=== PATIENT | female | born 1940 | race Caucasian/White ===

== ENCOUNTER 2017-04-09 09:20 | Outpatient (CLI) | payer MEDICARE, OTHER ==
[2017-04-09] MEDS ORDERED: BARIUM SULFATE 135 ML BOTTLE PO ONE (10:49)
[2017-04-09] MEDS ORDERED: SIMETHICONE/SOD BICARB/CIT AC 1 EACH PACKET PO ONE (10:49)
[2017-04-09] MEDS ORDERED: BARIUM SULFATE 148 GM POWDER PO ONE (10:49)
--- NOTE | 2017-04-09 12:52 | XRAY Report ---
SINGLE AND DOUBLE CONTRAST UPPER GI: 04/09/2017 CLINICAL INDICATION: Chest discomfort, intermittent. FINDINGS: Initial metal machine setter view of the abdomen demonstrates a normal bowel gas pattern. The esophagus i s normal in caliber and contractility. No esophageal ulceration, mass lesion, or stricturing is ident ified. There is a small sliding hiatal hernia intermittently visualized, which did cause reflux durin g the course of the study. The stomach demonstrates a normal fold pattern. No gastric ulceration, mas s lesion, or stricturing is seen. The duodenal cap distends normally. The duodenal C-loop is unremark able. Contrast passes freely into more distal small bowel loops. IMPRESSION: SMALL SLIDING HIATAL HERNIA, PRODUCING REFLUX. NO ESOPHAGEAL ULCERATION OR MASS LESION. FLUOROSCOPY TIME: 2 MINUTES 51 SECONDS; 27 SPOT IMAGES OBTAINED. JOB #: [id number] EXT JOB #:[id number]
== END 2017-04-09 09:21 | disposition home or self-care (01) ==
LOC: DI 09:20
PROVIDERS: ATTEND Family Medicine
DX: K44.9 Diaphragmatic hernia without obstruction or gangrene (principal); K21.9 Gastro-esophageal reflux disease without esophagitis
CPT/HCPCS: 74246; A9270

== ENCOUNTER 2017-04-16 10:54 | Outpatient (CLI) | payer MEDICARE, OTHER ==
--- NOTE | 2017-04-17 13:17 | Mammography Report ---
DIGITAL SCREENING MAMMOGRAM: 04/16/2017 CLINICAL INDICATION: A 76-year-old, for screening. COMPARISON: 04/2016, 03/2015, 03/2014, 03/2011, 03/2010, 03/2009, 02/2008. TECHNIQUE: Routine CC and MLO projections were obtained of the breasts. FINDINGS: The breasts again demonstrate scattered fibroglandular densities bilaterally. Punctate, ty pically benign calcifications are present. No suspicious masses, clustered microcalcifications, or re gions of architectural distortion are identified. IMPRESSION: BENIGN FINDINGS. RECOMMENDATION: ROUTINE ANNUAL SCREENING UNLESS OTHERWISE CLINICALLY INDICATED. BIRADS CATEGORY 2-BENIGN FINDINGS. STANDARD QUALIFYING STATEMENTS 1. This examination was reviewed with the aid of Computer-Aided Detection (CAD). 2. A negative or benign imaging report should not delay biopsy if clinically suspicious findings are present. Consider surgical consultation if warranted. More than 5% of cancers are not identified by i maging. 3. Dense breasts may obscure an underlying neoplasm. JOB #: [id number] EXT JOB #:[id number]
== END 2017-04-16 10:55 | disposition home or self-care (01) ==
LOC: DI.N 10:54
PROVIDERS: ATTEND Family Medicine
DX: Z12.31 Encounter for screening mammogram for malignant neoplasm of breast (principal)
CPT/HCPCS: 77067

== ENCOUNTER 2017-06-25 00:37 | Outpatient (CLI) | payer MEDICARE, OTHER | END 2017-06-25 00:38 | disposition critical access hospital (66) | LOC: EMS 00:37 | PROVIDERS: ATTEND Surgery | DX: R06.02 Shortness of breath (principal) | CPT/HCPCS: A0425; A0427 ==

== ENCOUNTER 2017-06-25 00:54 | Inpatient (IN) | payer MEDICARE, OTHER ==
[2017-06-25] MEDS ORDERED: NITROGLYCERIN 2% PASTE TOP STA (01:02)
[2017-06-25] MEDS ORDERED: CAPTOPRIL 12.5 MG TABLET PO STA (01:02)
[2017-06-25] MEDS ORDERED: NITROGLYCERIN 2% PASTE TOP ONE (01:10)
--- NOTE | 2017-06-25 01:10 | ED Physician Documentation ---
History of Present Illness - Stated complaint Stated Complaint: SOA - Chief complaint Chief Complaint: Resp - Additonal information Additional information: hx from pt, EMS and EMR 76 y/o f hx non ischemic cardiomyopathy, EF 40%, CHF, a fib, LBBB, PPM, HTN, crhonic renal insuff followed by [facility] cardiology pt to ER [facility] after sudden onset SOA this evening no fever + cough for 4 weeks no CP + edema more than baseline [place] developed en route recent trip to [facility] compliant with meds and diet takes xarelto in addition to meds on list Review of Systems Constitutional: reports: Sweats. denies: Fever, Chills Cardiac: denies: Chest pain / pressure Respiratory: reports: Dyspnea, Cough GI: reports: Nausea, Vomiting. denies: Abdominal Pain Skin: denies: Rash Musculoskeletal: reports: Extremity swelling. denies: Neck pain, Back pain Neurologic: reports: Difficulty speaking (due to SOA) Endocrine: denies: Easy bruising / bleeding Immunocompromised: denies: Immunocompromised PD PAST MEDICAL HISTORY - Past Medical History Cardiovascular: Hypertension, Atrial fibrillation Respiratory: None Neuro: Fainting Endocrine/Autoimmune: HyPOthyroidism GI: None : Renal insuffiency HEENT: None Psych: None Musculoskeletal: None Derm: None - Past Surgical History Past Surgical History: Yes Ortho: Other HEENT: Cataracts - Present Medications Home Medications: Ambulatory Orders Medication Instructions Recorded Confirmed Furosemide [Lasix] 20 mg PO DAILY PRN 02/07/15 06/25/17 Levothyroxine [Synthroid] 200 mcg PO DAILY 02/07/15 06/25/17 Metoprolol Succinate [Toprol Xl] 50 mg PO DAILY 02/07/15 06/25/17 Simvastatin 20 mg PO DAILY PM 02/07/15 06/25/17 Cinnamon Bark/Chromium Picolin 1 each PO DAILY 03/11/15 06/25/17 [Cinnamon Plus Chromium Capsule] Garlic 1 each PO DAILY 03/11/15 06/25/17 Lysine [l-Lysine] 1 tab PO DAILY PM 03/11/15 06/25/17 Amiodarone [Pacerone] 100 mg PO DAILY 06/04/15 06/25/17 Echinacea Purpurea Root [Echinacea] 80 mg PO DAILY PRN 06/04/15 06/25/17 Telmisartan [Micardis] 10 mg PO DAILY PM 11/16/15 06/25/17 Metoprolol Succinate 100 mg PO DAILY PM 06/25/17 06/25/17 - Allergies Allergies/Adverse Reactions: Allergies Allergy/AdvReac Type Severity Reaction Status Date / Time No Known Drug Allergies Allergy Verified 11/15/15 22:59 - Social History Does the pt smoke?: No Smoking Status: Never smoker Does the pt drink ETOH?: No Does the pt have substance abuse?: No - Immunizations Immunizations are current?: Yes PD ED PE NORMAL - Vitals Vital signs reviewed: Yes - General General: Alert and oriented X 3, Other (anxious) - HEENT HEENT: PERRL - Neck Neck: Supple, no meningeal sign - Cardiac Cardiac: RRR - Respiratory Respiratory: Other (suzanne ronchi, cannot lay flat, speakes in words, coughing) - Abdomen Abdomen: Soft, Non tender - Derm Derm: Normal color - Extremities Extremities: Other (suzanne edema (worse than nl per pt) R > L (baseline per pt)) - Neuro Neuro: Alert and oriented X 3 - Psych Psych: Other (anxious) Results - Vitals Vitals: Vital Signs - 24 hr 06/25/17 06/25/17 06/25/17 00:56 01:14 01:38 Temperature 37.2 C Heart Rate 81 74 107 H Respiratory 24 17 20 Rate Blood Pressure 197/117 H 175/65 H 170/88 H O2 Saturation 91 L 93 92 06/25/17 06/25/17 01:54 02:09 Temperature Heart Rate 62 62 Respiratory 22 22 Rate Blood Pressure 149/77 H 137/69 H O2 Saturation 95 95 Oxygen O2 Source Simple Mask Oxygen Flow Rate 10 - EKG (time done) 0103 Rate: Rate (enter#) (76) Other comments: Other comments (paced) - Labs Labs: Laboratory Tests 06/25/17 06/25/17 06/25/17 01:13 01:13 01:13 WBC 16.2 H RBC 4.97 Hgb 15.3 Hct 46.7 MCV 94.1 MCH 30.8 MCHC 32.7 RDW 14.7 Plt Count 267 MPV 11.2 H Neut # 12.2 H Lymph # 2.8 Jack # 0.7 Eos # 0.3 Baso # 0.2 H Absolute Nucleated RBC 0.01 Nucleated RBCs 0.1 Sodium 137 Potassium 3.7 Chloride 104 Carbon Dioxide 26 Anion Gap 7.0 BUN 22 H Creatinine 1.2 H Estimated GFR (MDRD) 44 L Glucose 251 H Calcium 8.7 Troponin I < 0.04 B-Natriuretic Peptide 06/25/17 01:13 WBC RBC Hgb Hct MCV MCH MCHC RDW Plt Count MPV Neut # Lymph # Jack # Eos # Baso # Absolute Nucleated RBC Nucleated RBCs Sodium Potassium Chloride Carbon Dioxide Anion Gap BUN Creatinine Estimated GFR (MDRD) Glucose Calcium Troponin I B-Natriuretic Peptide 527 H - Rads (name of study) CXR Radiology: See rad report (mild cardiomegaky with suzanne pulm edema, infiltrate cannot be excluded, small right pleural effusion) PD MEDICAL DECISION MAKING - ED course ED course: pt doing much better after lasix and nitropaste CXR shows pulm edema and exam is c/w pulm edema considered PE as well after recent travel to [facility] but given pt pmhx and exam and CXR and BNP feel todays sx are much more likely due to CHF - also her GFR is too low for CTPA and her base CXR is too abn for VQ scan Departure - Departure Disposition: 66 [facility] DC/Xfer Clinical Impression: Hypoxia, Renal insufficiency Pulmonary edema Qualifiers: Chronicity: acute Qualified Code(s): J81.0 - Acute pulmonary edema Condition: Fair
[2017-06-25 01:20] LABS: EOSINOPHILS # (AUTO) 0.3 10^3/uL (0.0-0.7); HGB - HEMOGLOBIN 15.3 g/dL (12.0-16.0)
[2017-06-25 01:25] LABS: BASOPHILS # (AUTO) 0.2 10^3/uL (0.0-0.1); BASOPHILS % (AUTO) 1.2 %; CALCIUM 8.7 mg/dL (8.5-10.3); CREATININE 1.2 mg/dL (0.4-1.0); EOSINOPHILS % (AUTO) 1.6 %; HCT - HEMATOCRIT 46.7 % (37.0-47.0); LYMPHOCYTES # (AUTO) 2.8 10^3/uL (1.5-3.5); LYMPHOCYTES % (AUTO) 17.4 %; MEAN CORPUSCULAR HEMOGLOBIN 30.8 pg (27.0-31.0); MEAN CORPUSCULAR HGB CONC 32.7 g/dL (32.0-36.0); MEAN CORPUSCULAR VOLUME 94.1 fL (81.0-99.0); MEAN PLATELET VOLUME 11.2 fL (7.9-10.8); MONOCYTES # (AUTO) 0.7 10^3/uL (0.0-1.0); MONOCYTES % (AUTO) 4.5 %; NEUTROPHILS # (AUTO) 12.2 10^3/uL (1.5-6.6); NEUTROPHILS % (AUTO) 75.3 %; NUCLEATED RED BLOOD CELLS AUTO 0.1 /100WBC; POTASSIUM 3.7 mmol/L (3.5-5.0); RED BLOOD COUNT 4.97 10^6/uL (4.20-5.40); RED CELL DISTRIBUTION WIDTH 14.7 % (12.0-15.0); UNCORRECTED WHITE BLOOD COUNT 16.2 x10^3/uL; WHITE BLOOD COUNT 16.2 x10^3/uL (4.8-10.8)
--- NOTE | 2017-06-25 01:37 | XRAY Preliminary Report ---
Exam: XR Chest 1 View IMPRESSION: 1. Mild cardiomegaly with moderate bilateral pulmonary edema. Infiltrate not entirely excluded. 2. Small right pleural effusion. [facility] SITE ID: [id number]
--- NOTE | 2017-06-25 01:39 | XRAY Report ---
EXAM: CHEST RADIOGRAPHY EXAM DATE: 06/25/2017 01:22 AM. CLINICAL HISTORY: Shortness of breath. COMPARISON: 03/18/2017. TECHNIQUE: 1 view. FINDINGS: Lungs/Pleura: Moderate bilateral pulmonary opacities, likely due to pulmonary edema. Small right pleu ral effusion. No pneumothorax. Mediastinum: Mild cardiomegaly. Other: Implanted pacemaker on the left. Leads are unchanged in position. IMPRESSION: 1. Mild cardiomegaly with moderate bilateral pulmonary edema. Infiltrate not entirely excluded. 2. Small right pleural effusion. [facility] Referring Provider Line: [phone] SITE ID: [id number]
[2017-06-25] MEDS ORDERED: HYDROcod/ACETAM 5/325 MG TABLET PO PRN (02:06)
[2017-06-25] MEDS ORDERED: ZOLPIDEM 5 MG TABLET PO PRN (02:06)
[2017-06-25] MEDS ORDERED: SODIUM CHLORIDE FLUSH 0.9% 10 ML SYRINGE IVP PRN (02:06)
[2017-06-25] MEDS ORDERED: ACETAMINOPHEN 325 MG TABLET PO PRN (02:06)
[2017-06-25] MEDS ORDERED: NON FORMULARY MED (Simvastatin [Simvastatin] 20 MG) PO SCH (02:15)
[2017-06-25] MEDS ORDERED: TELMISARTAN 10 MG PO SCH (02:15)
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
[2017-06-25] MEDS: LOSARTAN 50 MG TABLET PO SCH ×2 (04:05→20:51)
[2017-06-25] MEDS: METOPROLOL SUCCINATE 50 MG TABLET PO SCH ×3 (04:06→20:51)
[2017-06-25 05:41] LABS: BASOPHILS # (AUTO) 0.1 10^3/uL (0.0-0.1); BASOPHILS % (AUTO) 0.6 %; EOSINOPHILS % (AUTO) 0.1 %; HCT - HEMATOCRIT 43.5 % (37.0-47.0); HGB - HEMOGLOBIN 14.2 g/dL (12.0-16.0); LYMPHOCYTES # (AUTO) 0.8 10^3/uL (1.5-3.5); LYMPHOCYTES % (AUTO) 6.7 %; MEAN CORPUSCULAR HEMOGLOBIN 30.7 pg (27.0-31.0); MEAN CORPUSCULAR HGB CONC 32.6 g/dL (32.0-36.0); MEAN CORPUSCULAR VOLUME 94.4 fL (81.0-99.0); MEAN PLATELET VOLUME 11.1 fL (7.9-10.8); MONOCYTES # (AUTO) 0.5 10^3/uL (0.0-1.0); MONOCYTES % (AUTO) 4.6 %; RED BLOOD COUNT 4.61 10^6/uL (4.20-5.40); RED CELL DISTRIBUTION WIDTH 14.6 % (12.0-15.0); UNCORRECTED WHITE BLOOD COUNT 11.3 x10^3/uL; WHITE BLOOD COUNT 11.3 x10^3/uL (4.8-10.8)
[2017-06-25 05:47] LABS: CALCIUM 8.7 mg/dL (8.5-10.3); CREATININE 1.2 mg/dL (0.4-1.0); MAGNESIUM 1.8 mg/dL (1.7-2.8)
[2017-06-25] MEDS: SODIUM CHLORIDE FLUSH 0.9% 10 ML SYRINGE IVP SCH ×4 (06:38→20:56)
[2017-06-25] MEDS: PANTOPRAZOLE 40 MG TABLET PO SCH (06:38)
[2017-06-25] MEDS ORDERED: LEVOTHYROXINE 100 MCG TABLET PO SCH (07:00)
[2017-06-25 08:12] LABS: HEMOGLOBIN A1C 0.66 g/dL
[2017-06-25] MEDS ORDERED: MAGNESIUM SULFATE 2 GRAM 50 ML IV ONE (08:15)
--- NOTE | 2017-06-25 08:28 | PROVIDER PROGRESS NOTE ---
Subjective - Prog Note Date Prog Note Date: 06/25/17 Prog Note Time: 08:26 - Subjective Pt reports feeling: Improved Current Medications - Current Medications Current Medications: Active Medications Generic Name Dose Route Start Last Admin Trade Name Freq PRN Reason Stop Dose Admin Acetaminophen 650 mg 06/25/17 02:06 Tylenol PO Q4HR PRN Pain 1 to 4 Acetaminophen/Hydrocodone Bitart 1 tab 06/25/17 02:06 Penn 5/325 PO Q4HR PRN Pain 5 to 7 Amiodarone HCl 100 mg 06/25/17 09:00 Pacerone PO DAILY WILEY Atorvastatin Calcium 10 mg 06/25/17 09:00 Lipitor PO DAILY WILEY Furosemide 40 mg 06/25/17 09:00 Lasix Inj 40 Mg Vial IVP BID WILEY Magnesium Sulfate 50 mls @ 50 mls/hr 06/25/17 08:15 Magnesium Sulfate IV 06/25/17 09:14 ONCE ONE Levothyroxine Sodium 200 mcg 06/25/17 07:00 06/25/17 06:58 Synthroid PO 100 mcg QDAC WILEY Administration Losartan Potassium 12.5 mg 06/25/17 02:15 06/25/17 04:05 Cozaar PO Not Given QPM WILEY Metoprolol Succinate 50 mg 06/25/17 09:00 Toprol Xl PO DAILY WILEY Metoprolol Succinate 100 mg 06/25/17 02:15 06/25/17 04:06 Toprol Xl PO Not Given QPM WILEY Pantoprazole Sodium 40 mg 06/25/17 07:00 06/25/17 06:38 Protonix PO 40 mg QDAC WILEY Administration Polyethylene Glycol 17 gm 06/25/17 09:00 Miralax PO DAILY WILEY Potassium Chloride 40 meq 06/25/17 08:00 K-Dur PO DAILYWM WILEY Rivaroxaban 10 mg 06/25/17 17:00 Xarelto PO QDDINNER WILEY Sodium Chloride 10 ml 06/25/17 02:06 Normal Saline Flush 0.9% IVP PRN PRN NEEDED PER PROVIDER ORDERS Sodium Chloride 10 ml 06/25/17 06:00 06/25/17 06:38 Normal Saline Flush 0.9% IVP 10 ml Q8HR WILEY Administration Zolpidem Tartrate 5 mg 06/25/17 02:06 Ambien PO QPM PRN Insomnia Furosemide [Lasix] 20 mg PO DAILY PRN 02/07/15 Levothyroxine [Synthroid] 200 mcg PO DAILY 02/07/15 Metoprolol Succinate [Toprol Xl] 50 mg PO DAILY 02/07/15 Simvastatin 20 mg PO DAILY PM 02/07/15 Cinnamon Bark/Chromium Picolin [Cinnamon Plus Chromium Capsule] 1 each PO DAILY 03/11/15 Garlic 1 each PO DAILY 03/11/15 Lysine [l-Lysine] 1 tab PO DAILY PM 03/11/15 Amiodarone [Pacerone] 100 mg PO DAILY 06/04/15 Echinacea Purpurea Root [Echinacea] 80 mg PO DAILY PRN 06/04/15 Telmisartan [Micardis] 10 mg PO DAILY PM 11/16/15 Metoprolol Succinate 100 mg PO DAILY PM 06/25/17 Rivaroxaban [Xarelto] 10 mg PO QDDINNER 06/25/17 Objective - Vital Signs/Intake & Output Reviewed Vital Signs: Yes Vital Signs: Vital Signs x48h Temp Pulse Pulse Pulse Pulse Resp BP 06/25/17 08:12 36.7 C 60 18 06/25/17 06:20 36.6 C 61 18 06/25/17 02:55 36.7 C 78 60 21 06/25/17 02:34 60 19 118/65 06/25/17 02:09 62 22 137/69 H BP Pulse Ox 06/25/17 08:12 148/86 H 96 06/25/17 06:20 130/72 96 06/25/17 02:55 152/65 H 93 06/25/17 02:34 95 06/25/17 02:09 95 Intake & Output: Intake & Output 06/22/17 06/23/17 06/24/17 06/25/17 23:59 23:59 23:59 23:59 Intake Total 150 Output Total 1875 Balance -1725 - Objective General Appearance: positive: No acute distress, Alert Eyes Bilateral: positive: PERRL, EOMI ENT: positive: ENT inspection nml, Pharynx nml, No signs of dehydration Neck: positive: Thyroid nml, Trachea midline Respiratory: positive: Chest non-tender, No respiratory distress, Rhonchi Cardiovascular: positive: Regular rate & rhythm (paced), No murmur, No gallop Abdomen: positive: Non-tender, No organomegaly, Nml bowel sounds, No distention Back: positive: Nml inspection Skin: positive: Color nml, No rash, Warm, Dry Extremities: positive: Full ROM Neurologic/Psychiatric: positive: Oriented x3, CN's nml (2-12), Motor nml - Lab Results Fish Bones: 06/25/17 05:10 06/25/17 05:10 Other Labs: Lab Results x24hrs 06/25/17 06/25/17 06/25/17 Range/Units 05:10 05:10 05:10 WBC (4.8-10.8) x10^3/uL RBC (4.20-5.40) 10^6/uL Hgb (12.0-16.0) g/dL Hct (37.0-47.0) % MCV (81.0-99.0) fL MCH (27.0-31.0) pg MCHC (32.0-36.0) g/dL RDW (12.0-15.0) % Plt Count (130-450) 10^3/uL MPV (7.9-10.8) fL Neut # (1.5-6.6) 10^3/uL Lymph # (1.5-3.5) 10^3/uL Kern # (0.0-1.0) 10^3/uL Eos # (0.0-0.7) 10^3/uL Baso # (0.0-0.1) 10^3/uL Absolute Nucleated RBC x10^3/uL Nucleated RBCs /100WBC Sodium (135-145) mmol/L Potassium (3.5-5.0) mmol/L Chloride (101-111) mmol/L Carbon Dioxide (21-32) mmol/L Anion Gap (6-13) BUN (6-20) mg/dL Creatinine (0.4-1.0) mg/dL Estimated GFR (MDRD) (>89) Glucose (70-100) mg/dL Calcium (8.5-10.3) mg/dL Magnesium (1.7-2.8) mg/dL Troponin I 0.10 (<0.49) ng/mL B-Natriuretic Peptide 464 H (5-100) pg/mL TSH 1.95 (0.34-5.60) uIU/mL 06/25/17 06/25/17 Range/Units 05:10 05:10 WBC 11.3 H (4.8-10.8) x10^3/uL RBC 4.61 (4.20-5.40) 10^6/uL Hgb 14.2 (12.0-16.0) g/dL Hct 43.5 (37.0-47.0) % MCV 94.4 (81.0-99.0) fL MCH 30.7 (27.0-31.0) pg MCHC 32.6 (32.0-36.0) g/dL RDW 14.6 (12.0-15.0) % Plt Count 186 (130-450) 10^3/uL MPV 11.1 H (7.9-10.8) fL Neut # 10.0 H (1.5-6.6) 10^3/uL Lymph # 0.8 L (1.5-3.5) 10^3/uL Kern # 0.5 (0.0-1.0) 10^3/uL Eos # 0.0 (0.0-0.7) 10^3/uL Baso # 0.1 (0.0-0.1) 10^3/uL Absolute Nucleated RBC 0.00 x10^3/uL Nucleated RBCs 0.0 /100WBC Sodium 140 (135-145) mmol/L Potassium 4.0 (3.5-5.0) mmol/L Chloride 101 (101-111) mmol/L Carbon Dioxide 30 (21-32) mmol/L Anion Gap 9.0 (6-13) BUN 21 H (6-20) mg/dL Creatinine 1.2 H (0.4-1.0) mg/dL Estimated GFR (MDRD) 44 L (>89) Glucose 183 H (70-100) mg/dL Calcium 8.7 (8.5-10.3) mg/dL Magnesium 1.8 (1.7-2.8) mg/dL Troponin I (<0.49) ng/mL B-Natriuretic Peptide (5-100) pg/mL TSH (0.34-5.60) uIU/mL Assessment/Plan - Problem List (1) Acute exacerbation of CHF (congestive heart failure) Impression: actue. EF was 40% at last echol. pending new echo today. continue with lasix to diuresis (2) Hypoxia Impression: acute but improving. she is improved with supplemental and diuresis of fluid. she is on fluid restriction of 1800 daily. continue with RT support and duoneb treatments as needed
[2017-06-25] MEDS: POTASSIUM CHLORIDE 20 MEQ TABLET PO SCH (08:47)
[2017-06-25] MEDS: AMIODARONE 200 MG TABLET PO SCH (08:48)
[2017-06-25] MEDS: ATORVASTATIN 10 MG TABLET PO SCH (08:49)
[2017-06-25] MEDS: POLYETHYLENE GLYCOL 3350 17 GM PACKET PO SCH (08:49)
[2017-06-25] MEDS: FUROSEMIDE 40 MG/4 ML VIAL IVP SCH ×2 (08:49→20:51)
[2017-06-25] MEDS ORDERED: ENOXAPARIN 40 MG/0.4 ML SYRINGE SUBQ SCH (09:00)
[2017-06-25] MEDS ORDERED: RIVAROXABAN 10 MG TABLET PO SCH (17:00)
[2017-06-26 05:30] LABS: BASOPHILS # (AUTO) 0.1 10^3/uL (0.0-0.1); BASOPHILS % (AUTO) 1.5 %; EOSINOPHILS # (AUTO) 0.2 10^3/uL (0.0-0.7); EOSINOPHILS % (AUTO) 2.2 %; HCT - HEMATOCRIT 40.9 % (37.0-47.0); HGB - HEMOGLOBIN 13.7 g/dL (12.0-16.0); LYMPHOCYTES # (AUTO) 1.4 10^3/uL (1.5-3.5); LYMPHOCYTES % (AUTO) 18.7 %; MEAN CORPUSCULAR HEMOGLOBIN 31.3 pg (27.0-31.0); MEAN CORPUSCULAR HGB CONC 33.5 g/dL (32.0-36.0); MEAN CORPUSCULAR VOLUME 93.4 fL (81.0-99.0); MEAN PLATELET VOLUME 10.8 fL (7.9-10.8); MONOCYTES # (AUTO) 0.4 10^3/uL (0.0-1.0); MONOCYTES % (AUTO) 5.3 %; NEUTROPHILS # (AUTO) 5.3 10^3/uL (1.5-6.6); NEUTROPHILS % (AUTO) 72.3 %; RED BLOOD COUNT 4.38 10^6/uL (4.20-5.40); UNCORRECTED WHITE BLOOD COUNT 7.3 x10^3/uL; WHITE BLOOD COUNT 7.3 x10^3/uL (4.8-10.8)
[2017-06-26 05:38] LABS: CALCIUM 8.5 mg/dL (8.5-10.3); CREATININE 1.3 mg/dL (0.4-1.0); MAGNESIUM 2.2 mg/dL (1.7-2.8); POTASSIUM 3.9 mmol/L (3.5-5.0)
[2017-06-26] MEDS: PANTOPRAZOLE 40 MG TABLET PO SCH (05:45)
[2017-06-26] MEDS: SODIUM CHLORIDE FLUSH 0.9% 10 ML SYRINGE IVP SCH ×2 (05:45→14:23)
--- NOTE | 2017-06-26 07:42 | PROVIDER PROGRESS NOTE ---
Subjective - Subjective Subjective: discuss the result of ECHO with pt Objective - Vital Signs/Intake & Output Vital Signs: Vital Signs x48h Temp Pulse Resp BP Pulse Ox 06/26/17 04:35 36.9 C 70 16 131/70 H 93 06/25/17 23:50 36.8 C 68 16 137/63 H 93 Intake & Output: Intake & Output 06/23/17 06/24/17 06/25/17 06/26/17 23:59 23:59 23:59 23:59 Intake Total 1560 310 Output Total 3675 1999 Balance -7687 -1689 - Lab Results Fish Bones: 06/26/17 05:13 06/26/17 05:13 Other Labs: Lab Results x24hrs 06/26/17 06/26/17 06/26/17 Range/Units 05:13 05:13 05:13 WBC 7.3 (4.8-10.8) x10^3/uL RBC 4.38 (4.20-5.40) 10^6/uL Hgb 13.7 (12.0-16.0) g/dL Hct 40.9 (37.0-47.0) % MCV 93.4 (81.0-99.0) fL MCH 31.3 H (27.0-31.0) pg MCHC 33.5 (32.0-36.0) g/dL RDW 14.0 (12.0-15.0) % Plt Count 168 (130-450) 10^3/uL MPV 10.8 (7.9-10.8) fL Neut # 5.3 (1.5-6.6) 10^3/uL Lymph # 1.4 L (1.5-3.5) 10^3/uL Murray # 0.4 (0.0-1.0) 10^3/uL Eos # 0.2 (0.0-0.7) 10^3/uL Baso # 0.1 (0.0-0.1) 10^3/uL Absolute Nucleated RBC 0.00 x10^3/uL Nucleated RBCs 0.0 /100WBC Sodium 140 (135-145) mmol/L Potassium 3.9 (3.5-5.0) mmol/L Chloride 102 (101-111) mmol/L Carbon Dioxide 31 (21-32) mmol/L Anion Gap 7.0 (6-13) BUN 26 H (6-20) mg/dL Creatinine 1.3 H (0.4-1.0) mg/dL Estimated GFR (MDRD) 40 L (>89) Glucose 132 H (70-100) mg/dL Glycated Hemoglobin (4.6-6.2) % Estim Average Glucose (70-100) Calcium 8.5 (8.5-10.3) mg/dL Magnesium 2.2 (1.7-2.8) mg/dL Troponin I (<0.49) ng/mL B-Natriuretic Peptide 134 H (5-100) pg/mL 06/25/17 06/25/17 Range/Units 10:55 05:10 WBC (4.8-10.8) x10^3/uL RBC (4.20-5.40) 10^6/uL Hgb (12.0-16.0) g/dL Hct (37.0-47.0) % MCV (81.0-99.0) fL MCH (27.0-31.0) pg MCHC (32.0-36.0) g/dL RDW (12.0-15.0) % Plt Count (130-450) 10^3/uL MPV (7.9-10.8) fL Neut # (1.5-6.6) 10^3/uL Lymph # (1.5-3.5) 10^3/uL Murray # (0.0-1.0) 10^3/uL Eos # (0.0-0.7) 10^3/uL Baso # (0.0-0.1) 10^3/uL Absolute Nucleated RBC x10^3/uL Nucleated RBCs /100WBC Sodium (135-145) mmol/L Potassium (3.5-5.0) mmol/L Chloride (101-111) mmol/L Carbon Dioxide (21-32) mmol/L Anion Gap (6-13) BUN (6-20) mg/dL Creatinine (0.4-1.0) mg/dL Estimated GFR (MDRD) (>89) Glucose (70-100) mg/dL Glycated Hemoglobin 6.1 (4.6-6.2) % Estim Average Glucose 128 H (70-100) Calcium (8.5-10.3) mg/dL Magnesium (1.7-2.8) mg/dL Troponin I 0.07 (<0.49) ng/mL B-Natriuretic Peptide (5-100) pg/mL
--- NOTE | 2017-06-26 08:27 | Discharge Plan ---
Discharge Plan Disposition: 01 Home, Self Care Condition: Stable Diet: Low Sodium Activity Restrictions: Activity as Tolerated Shower Restrictions: No Weight Bearing: Full Weight Additional Instructions or Follow Up instructions: May see PCP in one week and cloth inspector in two weeks Follow-Up Care: [facility] - Cardiac No Smoking: If you smoke, Please STOP! Call for help. Follow-up with: Reggie Montana MD [Provider Admit Priv/Credential] -
[2017-06-26] MEDS: AMIODARONE 200 MG TABLET PO SCH (08:33)
[2017-06-26] MEDS: POTASSIUM CHLORIDE 20 MEQ TABLET PO SCH (08:33)
[2017-06-26] MEDS: ATORVASTATIN 10 MG TABLET PO SCH (08:33)
[2017-06-26] MEDS: POLYETHYLENE GLYCOL 3350 17 GM PACKET PO SCH (08:35)
[2017-06-26] MEDS: METOPROLOL SUCCINATE 50 MG TABLET PO SCH (08:35)
[2017-06-26] MEDS ORDERED: FUROSEMIDE 40 MG/4 ML VIAL IVP SCH (09:00)
[2017-06-26] MEDS ORDERED: LEVOTHYROXINE 100 MCG TABLET PO SCH (09:00)
[2017-06-26 11:52] VITALS: BP 132/75
--- NOTE | 2017-06-26 13:48 | DISCHARGE SUMMARY ---
Discharge Summary Admit Date: 06/25/17 Discharge Date: 06/26/17 Discharging Provider: GRISSOM Primary Care Provider: Reggie Snyder Code Status: Attempt Resuscitation Condition at Discharge: Stable Discharge Disposition: 01 Home, Self Care - DIAGNOSES Admission Diagnoses: (1) Acute respiratory failure with hypoxia (2) Acute exacerbation of CHF (congestive heart failure) (3) Atrial fibrillation (4) Hypertension (5) Hypothyroidism Discharge Diagnoses with Status of Each Condition: (1) Acute respiratory failure with hypoxia resolved, room air SO2 94% (2) Acute exacerbation of CHF (congestive heart failure) resolved, pt state she feel much better, no shortness of breathing, no chest pain. BNP from over 500 to down 130. Pt request to be discharged (3) Atrial fibrillation stable, continue Metoprolol and Xarelto (4) Hypertension stable (5) Hypothyroidism stable, TSH 1.93. continue with home medication and follow up PCP. - HPI History of Present Illness: please refer from Dr. Diamond's HPI on 06/25/17 as the following: Patient is a 76-year-old female with a past medical history significant for atrial fibrillation on Xarelto with a biventricular pacemaker, chronic left bundle branch block, hypothyroidism, morbid obesity, nonischemic cardiomyopathy , systolic heart failure with reduced ejection fraction of 40%, hypertension, chronic kidney disease stage III, cataracts and hyperlipidemia who presented to the emergency department with a chief complaint of shortness of breath. The patient states that she was in her normal state of health until about 1 month ago when she states that she had to go see her PCP because she was having intermittent episodes of mild chest discomfort. She states that she felt the discomfort in the substernal chest wall. She states that when she saw her PCP he did a workup and concluded that she had a hiatal hernia and likely was having acid reflux. The patient states that over the course of the last month she has continued to have these intermittent episodes of what she now describes as chest pain. She states that she is also developed increasing orthopnea and increasing lower extremity swelling over the course of the last month. She states that she is only changed her metoprolol dose recently as advised by her rn transitional but otherwise has been compliant with her home medication. She states that when she saw her rn transitional she was found to have elevated blood pressure. She states that she did go to [place], [place] recently and while she was there her friend was cooking her food therefore she was not able to monitor her salt intake as she normally does. The patient states that she has gained about 4 pounds from her normal baseline weight. The patient states that yesterday afternoon she became acutely short of breath. She states that she try to take her home dose of Lasix as she thought she may be having congestive heart failure. She states that despite her Lasix she continued to have symptoms and her shortness of breath was continuing to worsen to a point where she would become short of breath with any minimal exertion and was short of breath at rest. At this point she did finally decide to call 911. The patient otherwise denies any headaches, blurred vision, runny nose, sore throat, she does admit to cough, she denies any fevers or chills, she denies any abdominal pain, nausea, vomiting, diarrhea, constipation, urinary urgency, urinary frequency, dysuria, muscle aches, joint swelling, back pain, neck stiffness, changes in her appetite or any focal neurologic deficits. EMS reports that on arrival the patient's O2 saturation was 81% on room air she was immediately placed on an oxygen mask and was on 10 L of oxygen when she arrived in the emergency department. The patient was given a dose of Lasix in route to the emergency department. On arrival to the emergency department the patient was very hypertensive with a blood pressure of 197/117 she continued to be hypoxic despite being on 10 L of oxygen with her oxygen saturation down to 91% and she was in significant respiratory distress with respiratory rate in the mid 20s with use of accessory muscles of breathing. The patient's chest x-ray showed that the patient had bilateral pulmonary edema. Patient's lab work revealed that she had an elevated BNP of 527 and a slightly elevated WBC of 16.2. Patient did not have any infiltrates on the chest x-ray nor was she febrile. The patient had crackles on examination and increased lower extremity swelling. The patient did respond well to the IV Lasix as she put out over 1 L of fluid in the emergency department and had significant improvement in her symptoms and decreased oxygen requirement prior to being admitted to the hospital. The patient was admitted to the hospital for acute respiratory failure with hypoxia secondary to CHF exacerbation. - HOSPITAL COURSE Hospital Course: pt was admitted for hypoxia and CHF exacerbation. Pt was continued to be treated with Lasix. Pt state she feel much better and ready to be D/C today. Pt' s SO2 94% with room air, no respiratory distress, no chest pain, no shortness of breathing. BNP is down from over 500 to 130. No other complication was developed in the hospital course. - ALLERGIES Allergies/Adverse Reactions: Allergies Allergy/AdvReac Type Severity Reaction Status Date / Time No Known Drug Allergies Allergy Verified 11/15/15 22:59 - MEDICATIONS Home Medications: Ambulatory Orders Medication Instructions Recorded Confirmed Furosemide [Lasix] 20 mg PO DAILY PRN 02/07/15 06/25/17 Levothyroxine [Synthroid] 200 mcg PO DAILY 02/07/15 06/25/17 Metoprolol Succinate [Toprol Xl] 50 mg PO DAILY 02/07/15 06/25/17 Simvastatin 20 mg PO DAILY PM 02/07/15 06/25/17 Cinnamon Bark/Chromium Picolin 1 each PO DAILY 03/11/15 06/25/17 [Cinnamon Plus Chromium Capsule] Garlic 1 each PO DAILY 03/11/15 06/25/17 Lysine [l-Lysine] 1 tab PO DAILY PM 03/11/15 06/25/17 Amiodarone [Pacerone] 100 mg PO DAILY 06/04/15 06/25/17 Echinacea Purpurea Root [Echinacea] 80 mg PO DAILY PRN 06/04/15 06/25/17 Telmisartan [Micardis] 10 mg PO DAILY PM 11/16/15 06/25/17 Metoprolol Succinate 100 mg PO DAILY PM 06/25/17 06/25/17 Rivaroxaban [Xarelto] 10 mg PO QDDINNER 06/25/17 06/25/17 - PHYSICAL EXAM AT DISCHARGE General Appearance: positive: No acute distress, Alert. negative: Lethargic Eyes Bilateral: positive: Normal inspection, PERRL. negative: No lid inflammation, Conjunctivae nml ENT: positive: ENT inspection nml, Pharynx nml, No signs of dehydration. negative: Purulent nasal drainage, Pharyngeal erythema Neck: positive: Nml inspection, Thyroid nml, No JVD, Trachea midline. negative : Thyromegaly, Lymphadenopathy (R), Lymphadenopathy (L), Stiff neck, Swelling/ bruising Respiratory: positive: Chest non-tender, No respiratory distress, Breath sounds nml. negative: Wheezes, Rales, Rhonchi Cardiovascular: positive: Regular rate & rhythm, No murmur, No gallop. negative : Tachycardia, Bradycardia, Systolic murmur, Diastolic murmur Peripheral Pulses: positive: 2+ Abdomen: positive: Non-tender, No organomegaly, Nml bowel sounds, No distention. negative: Tenderness, Guarding, Rebound Back: positive: Nml inspection. negative: CVA tenderness (R), CVA tenderness (L ) Skin: positive: Color nml, No rash, Warm, Dry. negative: Diaphoresis, Pallor Extremities: positive: Non-tender, Full ROM, Nml appearance. negative: Calf tenderness, August's sign/cords Neurologic/Psychiatric: positive: Oriented x3, Sensation nml, Mood/affect nml. negative: Sensory loss, Facial droop, Slurred/abnml speech, Depressed mood/ affect - LABS Result Diagrams: 06/26/17 05:13 06/26/17 05:13 - DIAGNOSTIC IMAGING Diagnostic Imaging Results Comments: ECHO was done, without significantly changed as previous one - FOLLOW UP Follow Up: pt was advised to see her PCP in one week and follow up her rn transitional in two weeks lower sodium diet, daily weight.
== END 2017-06-26 15:15 | disposition home or self-care (01) | DRG 189 ==
LOC: EDUNIT# → ED 00:54 → MS2 02:06
PROVIDERS: ADMIT Internal Medicine; ATTEND Nurse Practitioner Gerontology
DX: R09.02 Hypoxemia (principal); J18.0 Bronchopneumonia, unspecified organism; J96.01 Acute respiratory failure with hypoxia; N18.9 Chronic kidney disease, unspecified; I50.9 Heart failure, unspecified; I50.21 Acute systolic (congestive) heart failure; I13.0 Hypertensive heart and chronic kidney disease with heart failure and stage 1 through stage 4 chronic kidney disease, or unspecified chronic kidney disease; N18.3 Chronic kidney disease, stage 3 (moderate); I48.91 Unspecified atrial fibrillation; E03.9 Hypothyroidism, unspecified; E66.01 Morbid (severe) obesity due to excess calories; Z68.32 Body mass index [BMI] 32.0-32.9, adult; I44.7 Left bundle-branch block, unspecified; Z79.899 Other long term (current) drug therapy; Z79.02 Long term (current) use of antithrombotics/antiplatelets; Z95.0 Presence of cardiac pacemaker; E78.5 Hyperlipidemia, unspecified; Z87.891 Personal history of nicotine dependence
CPT/HCPCS: 36415; 51702; 71010; 80048; 83036; 83735; 83880; 84443; 84484; 85025; 93005; 93306; 99284

== ENCOUNTER 2017-07-28 00:34 | Emergency (ER) | payer MEDICARE, OTHER ==
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
[2017-07-28 05:50] LABS: CALCIUM 9.2 mg/dL (8.5-10.3); TROPONIN I < 0.04 ng/mL (<0.49)
[2017-07-28 05:52] LABS: BASOPHILS # (AUTO) 0.3 10^3/uL (0.0-0.1); EOSINOPHILS # (AUTO) 0.1 10^3/uL (0.0-0.7); EOSINOPHILS % (AUTO) 2.3 %; HCT - HEMATOCRIT 42.5 % (37.0-47.0); HGB - HEMOGLOBIN 14.3 g/dL (12.0-16.0); LYMPHOCYTES % (AUTO) 15.7 %; MEAN CORPUSCULAR HEMOGLOBIN 31.2 pg (27.0-31.0); MEAN CORPUSCULAR HGB CONC 33.7 g/dL (32.0-36.0); MEAN CORPUSCULAR VOLUME 92.6 fL (81.0-99.0); MEAN PLATELET VOLUME 11.1 fL (7.9-10.8); MONOCYTES # (AUTO) 0.2 10^3/uL (0.0-1.0); MONOCYTES % (AUTO) 3.4 %; NEUTROPHILS # (AUTO) 4.7 10^3/uL (1.5-6.6); NEUTROPHILS % (AUTO) 73.6 %; RED BLOOD COUNT 4.59 10^6/uL (4.20-5.40); RED CELL DISTRIBUTION WIDTH 13.8 % (12.0-15.0); UNCORRECTED WHITE BLOOD COUNT 6.4 x10^3/uL; WHITE BLOOD COUNT 6.4 x10^3/uL (4.8-10.8)
[2017-07-28 06:13] LABS: CREATINE KINASE MB 2.2 ng/mL (0.6-6.3)
[2017-07-28 06:19] LABS: CREATININE 1.3 mg/dL (0.4-1.0); POTASSIUM 3.9 mmol/L (3.5-5.0)
--- NOTE | 2017-07-29 12:42 | XRAY Report ---
EXAM: CHEST RADIOGRAPHY EXAM DATE: 07/28/2017 02:42 AM. CLINICAL HISTORY: Shortness of breath. COMPARISON: None. TECHNIQUE: 2 views. FINDINGS: Lungs/Pleura: No focal opacities evident. No pleural effusion. No pneumothorax. Normal volumes. Mediastinum: Heart and mediastinal contours are unremarkable. Other: There is an old fracture deformity of the right clavicle with foreshortening and overriding. T here is a left subclavian pacemaker device with the tips at the right atrium, coronary sinus, and rig ht ventricle apex. Right upper quadrant clips indicate prior cholecystectomy. IMPRESSION: No acute cardiopulmonary abnormality demonstrated. [facility] Referring Provider Line: [phone] SITE ID: [id number]
--- NOTE | 2017-07-29 12:42 | XRAY Preliminary Report ---
Exam: XR Chest 2 View PA/LAT IMPRESSION: No acute cardiopulmonary abnormality demonstrated. [facility] SITE ID: [id number]
== END 2017-07-28 05:00 | disposition home or self-care (01) ==
LOC: ED 00:34
DX: R07.9 Chest pain, unspecified (principal); R94.31 Abnormal electrocardiogram [ECG] [EKG]; I10 Essential (primary) hypertension; E03.9 Hypothyroidism, unspecified; N28.9 Disorder of kidney and ureter, unspecified; Z95.0 Presence of cardiac pacemaker; F17.200 Nicotine dependence, unspecified, uncomplicated
CPT/HCPCS: 36415; 71020; 80048; 82550; 82553; 83880; 84484; 85025; 93005; 99281; 99283; 99284

== ENCOUNTER 2017-10-16 10:09 | Outpatient (CLI) | payer MEDICARE, OTHER ==
[2017-10-16 13:45] LABS: ALBUMIN/GLOBULIN RATIO 1.4 (1.0-2.2); BILIRUBIN,TOTAL 0.7 mg/dL (0.2-1.0); BUN - BLOOD UREA NITROGEN 25 mg/dL (6-20); CALCIUM 9.2 mg/dL (8.5-10.3); CARBON DIOXIDE - CO2 27 mmol/L (21-32); CHLORIDE 106 mmol/L (101-111); CHOL/HDL RATIO 2.5 (<4.4); CHOLESTEROL 173 mg/dL; CREATININE 1.5 mg/dL (0.4-1.0); GFR - MDRD 34 (>89); GLUCOSE 113 mg/dL (70-100); HDL CHOLESTEROL 68 mg/dL; LDL/HDL RATIO 1.3 (<4.4); SODIUM 139 mmol/L (135-145); TOTAL PROTEIN 7.1 g/dL (6.7-8.2); TRIGLYCERIDES 101 mg/dL; VLDL CHOLESTEROL 20 mg/dL
[2017-10-16 14:13] LABS: HEMOGLOBIN A1C 0.61 g/dL
== END 2017-10-16 10:10 | disposition home or self-care (01) ==
LOC: LAB.WCP 10:09
PROVIDERS: ATTEND Family Medicine
DX: E11.9 Type 2 diabetes mellitus without complications (principal); N28.9 Disorder of kidney and ureter, unspecified; E78.5 Hyperlipidemia, unspecified
CPT/HCPCS: 36415; 80053; 80061; 83036

== ENCOUNTER 2018-04-21 09:31 | Outpatient (CLI) | payer MEDICARE, OTHER ==
[2018-04-21 12:52] LABS: ALBUMIN/GLOBULIN RATIO 1.2 (1.0-2.2); ALKALINE PHOSPHATASE 47 IU/L (42-121); ALT ALANINE AMINOTRANSFERASE 18 IU/L (10-60); AST ASPARTATE AMINOTRANSFERASE 26 IU/L (10-42); BILIRUBIN,TOTAL 0.8 mg/dL (0.2-1.0); BUN - BLOOD UREA NITROGEN 21 mg/dL (6-20); CALCIUM 9.4 mg/dL (8.5-10.3); CARBON DIOXIDE - CO2 28 mmol/L (21-32); CHLORIDE 105 mmol/L (101-111); CHOL/HDL RATIO 2.6 (<4.4); CHOLESTEROL 179 mg/dL; CREATININE 1.3 mg/dL (0.4-1.0); GFR - MDRD 40 (>89); GLUCOSE 112 mg/dL (70-100); HB2 TOTAL 16.5 g/dL; HDL CHOLESTEROL 68 mg/dL; HEMOGLOBIN A1C 0.61 g/dL; HEMOGLOBIN A1C % 5.5 % (4.6-6.2); LDL CHOLESTEROL,CALCULATED 96 mg/dL; LDL/HDL RATIO 1.4 (<4.4); SODIUM 142 mmol/L (135-145); TOTAL PROTEIN 7.4 g/dL (6.7-8.2); VLDL CHOLESTEROL 15 mg/dL
== END 2018-04-21 09:32 | disposition home or self-care (01) ==
LOC: LAB.WCP 09:31
PROVIDERS: ATTEND Family Medicine
DX: I50.9 Heart failure, unspecified (principal); E11.9 Type 2 diabetes mellitus without complications; I48.0 Paroxysmal atrial fibrillation; I10 Essential (primary) hypertension; E03.9 Hypothyroidism, unspecified
CPT/HCPCS: 36415; 80053; 80061; 83036; 83721; 84443

== ENCOUNTER 2018-05-12 14:19 | Outpatient (CLI) | payer MEDICARE, OTHER ==
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
== END 2018-05-12 14:20 | disposition home or self-care (01) ==
LOC: DI 14:19
PROVIDERS: ATTEND Family Medicine
DX: Z78.0 Asymptomatic menopausal state (principal)
CPT/HCPCS: 77080

== ENCOUNTER 2018-05-12 14:20 | Outpatient (CLI) | payer MEDICARE, OTHER ==
--- NOTE | 2018-05-13 16:32 | Mammography Report ---
Procedure Date: 05/12/2018 Accession Number: [id number] / [id number] Procedure: BILL - Screening Mammo Dig Bilat CPT Code: FULL RESULT: EXAM: Screening Mammo Dig Bilat DATE: 05/12/2018 3:06 PM CLINICAL HISTORY: 77-year-old for screening TECHNIQUE: Bilateral CC and MLO views were obtained. COMPARISON: 04/16/2017, 04/14/2016, 03/19/2015, 03/21/2014, 03/17/2011, 03/08/2010 FINDINGS: The breasts demonstrate scattered fibroglandular densities bilaterally. Punctate, typically benign calcifications are present. Intramammary lymph nodes are stable. No suspicious masses, clustered microcalcifications, or regions of architectural distortion are identified. IMPRESSION: Benign findings RECOMMENDATION: Routine annual screening unless otherwise clinically indicated. BIRADS CATEGORY 2: Benign findings STANDARD QUALIFYING STATEMENTS: 1. This examination was reviewed with the aid of Computer-Aided Detection (CAD). 2. A negative or benign imaging report should not delay biopsy if clinically suspicious findings are present. Consider surgical consultation if warrented. More than 5% of cancers are not identified by imaging. 3. Dense breasts may obscure an underlying neoplasm.
== END 2018-05-12 14:21 | disposition home or self-care (01) ==
LOC: DI 14:20
PROVIDERS: ATTEND Family Medicine
DX: Z12.31 Encounter for screening mammogram for malignant neoplasm of breast (principal)
CPT/HCPCS: 77067

== ENCOUNTER 2018-06-17 23:04 | Emergency (ER) | payer MEDICARE, OTHER ==
[2018-06-17 23:38] LABS: BASOPHILS # (AUTO) 0.2 10^3/uL (0.0-0.1); BASOPHILS % (AUTO) 2.7 %; EOSINOPHILS # (AUTO) 0.2 10^3/uL (0.0-0.7); EOSINOPHILS % (AUTO) 2.5 %; HGB - HEMOGLOBIN 14.6 g/dL (12.0-16.0); LYMPHOCYTES # (AUTO) 2.2 10^3/uL (1.5-3.5); LYMPHOCYTES % (AUTO) 32.6 %; MEAN CORPUSCULAR HEMOGLOBIN 30.7 pg (27.0-31.0); MEAN CORPUSCULAR HGB CONC 33.7 g/dL (32.0-36.0); MEAN CORPUSCULAR VOLUME 91.3 fL (81.0-99.0); MEAN PLATELET VOLUME 10.6 fL (7.9-10.8); MONOCYTES # (AUTO) 0.3 10^3/uL (0.0-1.0); MONOCYTES % (AUTO) 5.2 %; NEUTROPHILS # (AUTO) 3.8 10^3/uL (1.5-6.6); PLT - PLATELET COUNT 225 10^3/uL (130-450); RED BLOOD COUNT 4.75 10^6/uL (4.20-5.40); RED CELL DISTRIBUTION WIDTH 14.5 % (12.0-15.0); WHITE BLOOD COUNT 6.7 x10^3/uL (4.8-10.8)
[2018-06-17 23:51] LABS: ALBUMIN 4.1 g/dL (3.2-5.5); ALBUMIN/GLOBULIN RATIO 1.3 (1.0-2.2); BILIRUBIN,TOTAL 0.5 mg/dL (0.2-1.0); CREATININE 1.4 mg/dL (0.4-1.0); TOTAL PROTEIN 7.2 g/dL (6.7-8.2)
--- NOTE | 2018-06-18 01:12 | XRAY Report ---
Procedure Date: 06/18/2018 Accession Number: [id number] / [id number] Procedure: XR - Chest 2 View X-Ray CPT Code: 29955 FULL RESULT: EXAM: CHEST RADIOGRAPHY EXAM DATE: 06/18/2018 12:59 AM. CLINICAL HISTORY: SOA and CP. COMPARISON: CHEST 2 VIEW PA/LAT 11/15/2015. TECHNIQUE: 2 views. FINDINGS: Lungs/Pleura: No focal opacities evident. No pleural effusion. No pneumothorax. Normal volumes. Mediastinum: Heart and mediastinal contours are unremarkable. Other: Stable pacemaker. IMPRESSION: No evidence of acute cardiopulmonary disease. RADIA
--- NOTE | 2018-06-18 01:29 | ED Physician Documentation ---
PD HPI CHEST PAIN - Stated complaint Stated Complaint: SOA - Chief complaint Chief Complaint: Cardiac - History obtained from History obtained from: Patient - History of Present Illness Timing - onset: How many days ago (2) Timing - onset during: Light activity Timing - duration: Minutes Timing - details: Abrupt onset, Intermittant Pain level max: 2 Pain level now: 0 Quality: Pain Location: Left chest Radiation: Other (does not radiate) Improved by: Nothing Associated symptoms: Shortness of air (mild) Similar symptoms before: Has not had sx before Recently seen: Not recently seen Review of Systems Constitutional: reports: Reviewed and negative Cardiac: reports: Chest pain / pressure. denies: Palpitations, Pedal edema Respiratory: reports: Dyspnea. 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 Cardiovascular: Pacemaker HEENT: Cataracts - Present Medications Home Medications: Ambulatory Orders Medication Instructions Recorded Confirmed Furosemide [Lasix] 20 mg PO DAILY PRN 02/07/15 06/25/17 Levothyroxine [Synthroid] 200 mcg PO DAILY 02/07/15 06/25/17 Simvastatin 20 mg PO DAILY PM 02/07/15 06/25/17 Cinnamon Bark/Chromium Picolin 1 each PO DAILY 03/11/15 06/25/17 [Cinnamon Plus Chromium Capsule] Lysine [l-Lysine] 1 tab PO DAILY PM 03/11/15 06/25/17 Amiodarone [Pacerone] 100 mg PO DAILY 06/04/15 06/25/17 Telmisartan [Micardis] 10 mg PO DAILY PM 11/16/15 06/25/17 Metoprolol Succinate 100 mg PO DAILY PM 06/25/17 06/25/17 Rivaroxaban [Xarelto] 10 mg PO QDDINNER 06/25/17 06/25/17 - Allergies Allergies/Adverse Reactions: Allergies Allergy/AdvReac Type Severity Reaction Status Date / Time No Known Drug Allergies Allergy Verified 06/17/18 23:16 - Social History Does the pt smoke?: No Smoking Status: Never smoker Does the pt drink ETOH?: No Does the pt have substance abuse?: No - Immunizations Immunizations are current?: Yes - POLST Patient has POLST: No POLST Status: Full Code PD ED PE NORMAL - Vitals Vital signs reviewed: Yes - General General: Alert and oriented X 3, No acute distress, Well developed/nourished - Cardiac Cardiac: RRR, No murmur, No gallop, No rub - Respiratory Respiratory: No respiratory distress, Clear bilaterally - Abdomen Abdomen: Soft, Non tender - Derm Derm: Normal color, Warm and dry - Extremities Extremities: No edema Results - Vitals Vitals: Oxygen O2 Source Room air - EKG (time done) No standard instances Rate: Rate (enter#) (87) Rhythm: Paced [place]: LAD Ischemia: Normal ST segments - Labs Labs: Laboratory Tests 06/17/18 06/17/18 06/17/18 23:25 23:25 23:25 WBC 6.7 RBC 4.75 Hgb 14.6 Hct 43.3 MCV 91.3 MCH 30.7 MCHC 33.7 RDW 14.5 Plt Count 225 MPV 10.6 Neut # (Auto) 3.8 Lymph # (Auto) 2.2 Moody # (Auto) 0.3 Eos # (Auto) 0.2 Baso # (Auto) 0.2 H Absolute Nucleated RBC 0.00 Nucleated RBC % 0.1 Sodium 137 Potassium 3.7 Chloride 101 Carbon Dioxide 30 Anion Gap 6.0 BUN 19 Creatinine 1.4 H Estimated GFR (MDRD) 37 L Glucose 160 H Calcium 9.0 Total Bilirubin 0.5 AST 23 ALT 18 Alkaline Phosphatase 50 Troponin I < 0.04 B-Natriuretic Peptide Total Protein 7.2 Albumin 4.1 Globulin 3.1 Albumin/Globulin Ratio 1.3 Lipase 33 06/17/18 23:25 WBC RBC Hgb Hct MCV MCH MCHC RDW Plt Count MPV Neut # (Auto) Lymph # (Auto) Moody # (Auto) Eos # (Auto) Baso # (Auto) Absolute Nucleated RBC Nucleated RBC % Sodium Potassium Chloride Carbon Dioxide Anion Gap BUN Creatinine Estimated GFR (MDRD) Glucose Calcium Total Bilirubin AST ALT Alkaline Phosphatase Troponin I B-Natriuretic Peptide 172 H Total Protein Albumin Globulin Albumin/Globulin Ratio Lipase - Rads (name of study) chest xray Radiology: Prelim report reviewed, See rad report PD MEDICAL DECISION MAKING - ED course Complexity details: reviewed results, re-evaluated patient, considered differential, d/w patient - Sepsis Event Vital Signs: Oxygen O2 Source Room air Departure - Departure Disposition: Home, Self Care Clinical Impression: Chest pain Qualifiers: Chest pain type: unspecified Qualified Code(s): R07.9 - Chest pain, unspecified Condition: Good Instructions: ED Chest Pain Atypical Unkn Cause Comments: Follow up with your child care aide as scheduled. Discharge Date/Time: 06/18/18 02:16
[2018-06-18 01:58] VITALS: BP 144/87
== END 2018-06-18 02:16 | disposition home or self-care (01) ==
LOC: ED 23:04
DX: R07.9 Chest pain, unspecified (principal); I10 Essential (primary) hypertension; Z95.0 Presence of cardiac pacemaker
CPT/HCPCS: 36415; 71046; 80053; 83690; 83880; 84484; 85025; 93005; 99283; 99284

== ENCOUNTER 2018-09-09 04:38 | Observation (INO) | payer MEDICARE, OTHER ==
[2018-09-09] MEDS ORDERED: ASPIRIN CHEW 81 MG TABLET PO STA (04:47)
[2018-09-09] MEDS ORDERED: NITROGLYCERIN SL 0.4 MG TABLET SL STA (04:50)
--- NOTE | 2018-09-09 04:50 | ED Physician Documentation ---
PD HPI CHEST PAIN - Stated complaint Stated Complaint: CHEST PX - Chief complaint Chief Complaint: Cardiac - Additional information Additional information: 78-year-old female presents the emergency department with complaints of Retrosternal pain which started yesterday evening around 11 PM. The patient was able to sleep. The patient awoke this morning and again was having retrosternal chest pain. The patient denies radiation of the pain. The patient does report dyspnea. Currently, the patient's chest pain has resolved. No recent URI symptoms. No other associated symptoms. No specific triggering factors. Symptoms improved spontaneously. Review of Systems Constitutional: denies: Fever, Fatigue Eyes: denies: Discharge Ears: denies: Ear pain Nose: denies: Congestion Throat: denies: Oral lesions / sores Cardiac: reports: Chest pain / pressure Respiratory: reports: Dyspnea GI: denies: Constipation : denies: Dysuria Skin: denies: Rash Musculoskeletal: denies: Neck pain Neurologic: denies: Generalized weakness Psychiatric: denies: Hallucinations Immunocompromised: denies: Chemotherapy PD PAST MEDICAL HISTORY - Past Medical History Cardiovascular: Hypertension, Atrial fibrillation Respiratory: None Endocrine/Autoimmune: HyPOthyroidism GI: None : Renal insuffiency HEENT: None Psych: None Musculoskeletal: None Derm: None - Past Surgical History Past Surgical History: Yes General: Cholecystectomy 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 Cardiovascular: Pacemaker HEENT: Cataracts - Present Medications Home Medications: Ambulatory Orders Medication Instructions Recorded Confirmed Furosemide [Lasix] 20 mg PO DAILY PRN 02/07/15 06/25/17 Levothyroxine [Synthroid] 200 mcg PO DAILY 02/07/15 06/25/17 Simvastatin 20 mg PO DAILY PM 02/07/15 06/25/17 Cinnamon Bark/Chromium Picolin 1 each PO DAILY 03/11/15 06/25/17 [Cinnamon Plus Chromium Capsule] Lysine [l-Lysine] 1 tab PO DAILY PM 03/11/15 06/25/17 Amiodarone [Pacerone] 100 mg PO DAILY 06/04/15 06/25/17 Telmisartan [Micardis] 10 mg PO DAILY PM 11/16/15 06/25/17 Metoprolol Succinate 100 mg PO DAILY PM 06/25/17 06/25/17 Rivaroxaban [Xarelto] 10 mg PO QDDINNER 06/25/17 06/25/17 - Allergies Allergies/Adverse Reactions: Allergies Allergy/AdvReac Type Severity Reaction Status Date / Time No Known Drug Allergies Allergy Verified 09/09/18 04:45 - Social History Does the pt smoke?: No Smoking Status: Never smoker Does the pt drink ETOH?: No Does the pt have substance abuse?: No - Immunizations Immunizations are current?: Yes - POLST Patient has POLST: No POLST Status: Full Code PD ED PE NORMAL - General General: Alert and oriented X 3, No acute distress - HEENT HEENT: Atraumatic, PERRL, EOMI, Ears normal - Neck Neck: Supple, no meningeal sign - Cardiac Cardiac: Strong equal pulses, Other (Ventricularly paced rhythm) - Respiratory Respiratory: No respiratory distress - Abdomen Abdomen: Soft, Non tender - Derm Derm: Normal color - Extremities Extremities: No deformity, No edema - Neuro Neuro: Alert and oriented X 3, Normal speech - Psych Psych: Normal affect Results - Vitals Vitals: Vital Signs - 24 hr 09/09/18 09/09/18 09/09/18 04:40 05:05 06:15 Temperature 36.6 C Heart Rate 96 79 73 Respiratory 18 17 13 Rate Blood Pressure 182/114 H 188/117 H 188/112 H O2 Saturation 94 94 91 L Oxygen O2 Source Room air - EKG (time done) 04:47 Rate: Rate (enter#) Rhythm: Other (Ventricularly paced) Other comments: Other comments (Ventricularly paced rhythm) Compare to prior EKG: Unchanged from prior EKG - Labs Labs: Laboratory Tests 09/09/18 09/09/18 09/09/18 04:52 04:52 04:52 WBC 7.3 RBC 5.10 Hgb 15.7 Hct 47.8 H MCV 93.7 MCH 30.8 MCHC 32.9 RDW 14.9 Plt Count 209 MPV 11.1 H Neut # (Auto) 4.4 Lymph # (Auto) 2.2 [place]bot # (Auto) 0.4 Eos # (Auto) 0.2 Baso # (Auto) 0.1 Absolute Nucleated RBC 0.00 Nucleated RBC % 0.0 PT 19.0 H INR 1.7 H APTT 37.5 H Sodium 140 Potassium 3.8 Chloride 105 Carbon Dioxide 28 Anion Gap 7.0 BUN 26 H Creatinine 1.3 H Estimated GFR (MDRD) 40 L Glucose 151 H Calcium 9.0 Total Bilirubin 0.6 AST 28 ALT 22 Alkaline Phosphatase 58 Troponin I B-Natriuretic Peptide Total Protein 7.9 Albumin 4.2 Globulin 3.7 Albumin/Globulin Ratio 1.1 Lipase 32 09/09/18 09/09/18 04:52 04:52 WBC RBC Hgb Hct MCV MCH MCHC RDW Plt Count MPV Neut # (Auto) Lymph # (Auto) [place] # (Auto) Eos # (Auto) Baso # (Auto) Absolute Nucleated RBC Nucleated RBC % PT INR APTT Sodium Potassium Chloride Carbon Dioxide Anion Gap BUN Creatinine Estimated GFR (MDRD) Glucose Calcium Total Bilirubin AST ALT Alkaline Phosphatase Troponin I < 0.04 B-Natriuretic Peptide 288 H Total Protein Albumin Globulin Albumin/Globulin Ratio Lipase - Rads (name of study) CXR Radiology: Final report received (1. Mild cardiomegaly with pulmonary vascular congestion and possible slight interstitial edema. ) PD MEDICAL DECISION MAKING - ED course ED course: 06:00 AM The case was discussed with the on-call steam engineer Dr. Fenton from the patient's cardiology group. I discussed with him the patient's presentation, EKG, chest x-ray and lab work. He was able to review the office records regarding the patient. Since, the patient's pain has improved, He recommends performing a 6-hour troponin. If that troponin is negative he recommends an outpatient workup to further assess the patient's chest pain. The patient is scheduled to be in the office this coming Thursday and he will work on having the patient seen for further investigation of the chest pain. If the patient develops significant pain with the troponin changes he recommends transfer to their facility. The findings and plan were discussed with the patient who currently understands and agrees to the plan. 07:00 AM The case was turned over to the oncoming emergency physician Dr. Villavicencio for reevaluation, follow-up on the second troponin andfinal disposition Departure - Departure Clinical Impression: Chest pain Qualifiers: Chest pain type: other chest pain Qualified Code(s): R07.89 - Other chest pain
[2018-09-09 05:09] LABS: BASOPHILS # (AUTO) 0.1 10^3/uL (0.0-0.1); EOSINOPHILS # (AUTO) 0.2 10^3/uL (0.0-0.7); EOSINOPHILS % (AUTO) 2.3 %; HGB - HEMOGLOBIN 15.7 g/dL (12.0-16.0); LYMPHOCYTES # (AUTO) 2.2 10^3/uL (1.5-3.5); LYMPHOCYTES % (AUTO) 30.1 %; MEAN CORPUSCULAR HEMOGLOBIN 30.8 pg (27.0-31.0); MEAN CORPUSCULAR HGB CONC 32.9 g/dL (32.0-36.0); MEAN CORPUSCULAR VOLUME 93.7 fL (81.0-99.0); MEAN PLATELET VOLUME 11.1 fL (7.9-10.8); MONOCYTES # (AUTO) 0.4 10^3/uL (0.0-1.0); MONOCYTES % (AUTO) 5.8 %; NEUTROPHILS # (AUTO) 4.4 10^3/uL (1.5-6.6); NEUTROPHILS % (AUTO) 59.8 %; PLT - PLATELET COUNT 209 10^3/uL (130-450); RED CELL DISTRIBUTION WIDTH 14.9 % (12.0-15.0); WHITE BLOOD COUNT 7.3 x10^3/uL (4.8-10.8)
[2018-09-09 05:13] LABS: INR 1.7 (0.8-1.2)
--- NOTE | 2018-09-09 05:16 | XRAY Report ---
Reason: cp Procedure Date: 09/09/2018 Accession Number: [id number] / [id number] Procedure: XR - Chest 2 View X-Ray CPT Code: 56799 FULL RESULT: EXAM: CHEST RADIOGRAPHY EXAM DATE: 09/09/2018 05:06 AM. CLINICAL HISTORY: Chest pain. COMPARISON: CHEST 2 VIEW 06/18/2018 12:46 AM. TECHNIQUE: 2 views. FINDINGS: Lungs/Pleura: Pulmonary vascular congestion. Possible mild interstitial edema. No pleural effusion seen. No pneumothorax. Mediastinum: Mild cardiomegaly. Aortic atherosclerosis. Other: Implanted pacemaker is unchanged. Old right clavicle fracture. IMPRESSION: 1. Mild cardiomegaly with pulmonary vascular congestion and possible slight interstitial edema. RADIA
[2018-09-09 05:20] LABS: ALBUMIN 4.2 g/dL (3.2-5.5); ALBUMIN/GLOBULIN RATIO 1.1 (1.0-2.2); BILIRUBIN,TOTAL 0.6 mg/dL (0.2-1.0); CREATININE 1.3 mg/dL (0.4-1.0); TOTAL PROTEIN 7.9 g/dL (6.7-8.2)
[2018-09-09] MEDS ORDERED: FUROSEMIDE 40 MG/4 ML VIAL IVP STA (05:57)
[2018-09-09] MEDS ORDERED: MORPHINE 2 MG/ML CARPUJECT IVP STA ×2 (05:58→07:44)
[2018-09-09] MEDS ORDERED: LORazepam 2 MG/ML VIAL IVP STA (05:58)
[2018-09-09] MEDS ORDERED: NITROGLYCERIN 2% PASTE TOP STA ×2 (07:20→07:29)
--- NOTE | 2018-09-09 07:24 | ED Physician Documentation ---
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 ) has been compliant with her xarelto otherwise well recently - no fever cough NVD etc in the ED she had an EKG which was a fib with PM and thus not helpful evaluating for ischemia CXR showing cardiomegaly and mild edema she was given asa nitro sl X 1 morphine 2 ativan and lasix she is still having chest pain when I go to see her at 7 AM BP has been quite elevated - 188/117 meds have not been updated in EMR pt has a list she takes: amiodarone 200 mg AM lasix 20 mg AM metoprolol succ 50 AM 100 PM synthroid 200 mcg PM simvastatin 20 mg PM micardis 10 mg PM lysine PRN xarelto 10 mg with dinner Review of Systems Constitutional: denies: Fever, Chills, Sweats Cardiac: denies: Chest pain / pressure Respiratory: reports: Dyspnea, Cough GI: denies: Abdominal Pain, Nausea, Vomiting, Diarrhea Musculoskeletal: reports: Extremity swelling. 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 Cardiovascular: Pacemaker HEENT: Cataracts - Present Medications Home Medications: Ambulatory Orders Medication Instructions Recorded Confirmed Furosemide [Lasix] 20 - 40 mg PO DAILY PRN MDD 40MG 02/07/15 09/09/18 Simvastatin 20 mg PO QPM 02/07/15 09/09/18 Cinnamon Bark/Chromium Picolin 500 mg PO DAILY 03/11/15 09/09/18 [Cinnamon Plus Chromium Capsule] Lysine [l-Lysine] 500 mg PO QPM 03/11/15 09/09/18 Amiodarone [Pacerone] 200 mg PO DAILY 06/04/15 09/09/18 Telmisartan [Micardis] 10 mg PO QPM 11/16/15 09/09/18 Metoprolol Succinate 50 mg PO DAILY 06/25/17 09/09/18 Rivaroxaban [Xarelto] 10 mg PO QDDINNER 06/25/17 09/09/18 Levothyroxine Sodium 200 mcg PO [id number]@209909/09/18 09/09/18 Levothyroxine Sodium 400 mcg PO SUWE@209909/09/18 09/09/18 Metoprolol Succinate 100 mg PO QPM 09/09/18 09/09/18 - Allergies Allergies/Adverse Reactions: Allergies Allergy/AdvReac Type Severity Reaction Status Date / Time No Known Drug Allergies Allergy Verified 09/09/18 07:30 - Social History Does the pt smoke?: No Smoking Status: Never smoker Does the pt drink ETOH?: No Does the pt have substance abuse?: No - Immunizations Immunizations are current?: Yes - POLST Patient has POLST: No POLST Status: Full Code PD ED PE NORMAL - Vitals Vital signs reviewed: Yes - HEENT HEENT: Atraumatic - Neck Neck: Supple, no meningeal sign - Cardiac Cardiac: No murmur. No: RRR (irreg) - Respiratory Respiratory: No respiratory distress, Other (no ronchi or rales) - Abdomen Abdomen: Soft - Derm Derm: Normal color - Extremities Extremities: No calf tenderness / cord, Other (mod suzanne LE edema) - Neuro Neuro: Alert and oriented X 3 Results - Vitals Vitals: Vital Signs - 24 hr 09/09/18 09/09/18 09/09/18 04:40 05:05 06:15 Temperature 36.6 C Heart Rate 96 79 73 Respiratory 18 17 13 Rate Blood Pressure 182/114 H 188/117 H 188/112 H O2 Saturation 94 94 91 L 09/09/18 09/09/18 09/09/18 06:58 07:29 08:05 Temperature Heart Rate 81 71 73 Respiratory 19 16 Rate Blood Pressure 157/107 H 154/91 H 144/93 H O2 Saturation 95 95 11/06/1909/09/18 09/09/18 08:10 08:15 08:30 Temperature Heart Rate 80 75 72 Respiratory Rate Blood Pressure 136/83 H 106/95 H 127/81 H O2 Saturation Oxygen O2 Source Room air - EKG (time done) 0447 Other comments: Other comments (a fib paced) - Labs Labs: Laboratory Tests 09/09/18 09/09/18 09/09/18 04:52 04:52 04:52 WBC 7.3 RBC 5.10 Hgb 15.7 Hct 47.8 H MCV 93.7 MCH 30.8 MCHC 32.9 RDW 14.9 Plt Count 209 MPV 11.1 H Neut # (Auto) 4.4 Lymph # (Auto) 2.2 Burt # (Auto) 0.4 Eos # (Auto) 0.2 Baso # (Auto) 0.1 Absolute Nucleated RBC 0.00 Nucleated RBC % 0.0 PT 19.0 H INR 1.7 H APTT 37.5 H Sodium 140 Potassium 3.8 Chloride 105 Carbon Dioxide 28 Anion Gap 7.0 BUN 26 H Creatinine 1.3 H Estimated GFR (MDRD) 40 L Glucose 151 H Calcium 9.0 Total Bilirubin 0.6 AST 28 ALT 22 Alkaline Phosphatase 58 Troponin I B-Natriuretic Peptide Total Protein 7.9 Albumin 4.2 Globulin 3.7 Albumin/Globulin Ratio 1.1 Lipase 32 09/09/18 09/09/18 04:52 04:52 WBC RBC Hgb Hct MCV MCH MCHC RDW Plt Count MPV Neut # (Auto) Lymph # (Auto) Burt # (Auto) Eos # (Auto) Baso # (Auto) Absolute Nucleated RBC Nucleated RBC % PT INR APTT Sodium Potassium Chloride Carbon Dioxide Anion Gap BUN Creatinine Estimated GFR (MDRD) Glucose Calcium Total Bilirubin AST ALT Alkaline Phosphatase Troponin I < 0.04 B-Natriuretic Peptide 288 H Total Protein Albumin Globulin Albumin/Globulin Ratio Lipase - Rads (name of study) CXR Radiology: See rad report (cardiomegaly and mild edema) PD MEDICAL DECISION MAKING - ED course ED course: 78 female with cardiac dz and a heart score of 6 and ongoing CP pt travelled to [place] but has been on xarelto and states her edema is baseline so doubt PE pain is dull and mild and no rad to back to suggest dissection will discuss with hospitalist to obs for a proper rule out and echo and perhaps stress testing d/w hospitalist Dr Waterman at 0745 and she recommend obs for further eval and management pain is resolved with nitro paste and a second dose of morphine Departure - Departure Disposition: ED Place in Observation Clinical Impression: Chest pain Qualifiers: Chest pain type: other chest pain Qualified Code(s): R07.89 - Other chest pain Condition: Fair Discharge Date/Time: 09/09/18 10:03
[2018-09-09] MEDS ORDERED: METOPROLOL 5 MG/5 ML VIAL IVP STA (07:29)
[2018-09-09] MEDS ORDERED: ACETAMINOPHEN 325 MG TABLET PO PRN (09:18)
[2018-09-09] MEDS ORDERED: SODIUM CHLORIDE FLUSH 0.9% 10 ML SYRINGE IVP PRN (09:18)
[2018-09-09] MEDS ORDERED: PROCHLORPERAZINE 10 MG/2 ML VIAL IVP PRN (09:18)
[2018-09-09] MEDS: METOPROLOL SUCCINATE 50 MG TABLET PO SCH (10:51)
[2018-09-09] MEDS: AMIODARONE 200 MG TABLET PO SCH (10:51)
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
[2018-09-09] MEDS ORDERED: NITROGLYCERIN SL 0.4 MG TABLET SL PRN (14:38)
[2018-09-09] MEDS: SODIUM CHLORIDE FLUSH 0.9% 10 ML SYRINGE IVP SCH (16:05)
[2018-09-09] MEDS: RIVAROXABAN 10 MG TABLET PO SCH (16:05)
[2018-09-09] MEDS: PANTOPRAZOLE 40 MG TABLET PO SCH (16:05)
[2018-09-09] MEDS: SPIRONOLACTONE 25 MG TABLET PO SCH (17:07)
[2018-09-09] MEDS ORDERED: ATORVASTATIN 10 MG TABLET PO SCH (21:00)
[2018-09-09] MEDS ORDERED: FAMOTIDINE 20 MG TABLET PO SCH (21:00)
[2018-09-09] MEDS ORDERED: METOPROLOL SUCCINATE 50 MG TABLET PO SCH (21:00)
[2018-09-09] MEDS ORDERED: LEVOTHYROXINE 100 MCG TABLET PO SCH (21:00)
[2018-09-09] MEDS ORDERED: TELMISARTAN 10 MG PO SCH (21:00)
[2018-09-10] MEDS: SODIUM CHLORIDE FLUSH 0.9% 10 ML SYRINGE IVP SCH ×2 (00:15→09:05)
[2018-09-10 06:09] LABS: BASOPHILS # (AUTO) 0.2 10^3/uL (0.0-0.1); EOSINOPHILS # (AUTO) 0.2 10^3/uL (0.0-0.7); EOSINOPHILS % (AUTO) 2.3 %; HGB - HEMOGLOBIN 14.2 g/dL (12.0-16.0); LYMPHOCYTES # (AUTO) 1.6 10^3/uL (1.5-3.5); LYMPHOCYTES % (AUTO) 20.1 %; MEAN CORPUSCULAR HEMOGLOBIN 30.8 pg (27.0-31.0); MEAN CORPUSCULAR VOLUME 93.4 fL (81.0-99.0); MONOCYTES # (AUTO) 0.3 10^3/uL (0.0-1.0); MONOCYTES % (AUTO) 4.4 %; NEUTROPHILS # (AUTO) 5.6 10^3/uL (1.5-6.6); NEUTROPHILS % (AUTO) 71.2 %; PLT - PLATELET COUNT 178 10^3/uL (130-450); RED BLOOD COUNT 4.62 10^6/uL (4.20-5.40); RED CELL DISTRIBUTION WIDTH 14.6 % (12.0-15.0); WHITE BLOOD COUNT 7.9 x10^3/uL (4.8-10.8)
[2018-09-10 06:26] LABS: ALBUMIN/GLOBULIN RATIO 1.3 (1.0-2.2); ALKALINE PHOSPHATASE 50 IU/L (42-121); ALT ALANINE AMINOTRANSFERASE 20 IU/L (10-60); AST ASPARTATE AMINOTRANSFERASE 23 IU/L (10-42); BILIRUBIN,TOTAL 0.9 mg/dL (0.2-1.0); BUN - BLOOD UREA NITROGEN 25 mg/dL (6-20); CALCIUM 8.4 mg/dL (8.5-10.3); CARBON DIOXIDE - CO2 27 mmol/L (21-32); CHLORIDE 102 mmol/L (101-111); CREATININE 1.3 mg/dL (0.4-1.0); GFR - MDRD 40 (>89); GLUCOSE 108 mg/dL (70-100); PHOSPHORUS 3.7 mg/dL (2.5-4.6); SODIUM 135 mmol/L (135-145)
[2018-09-10 06:44] LABS: CRP - C-REACTIVE PROTEIN < 1.0 mg/dL (0-1.0)
[2018-09-10] MEDS ORDERED: MAGNESIUM OXIDE 400 MG TABLET PO SCH (08:00)
[2018-09-10] MEDS: AMIODARONE 200 MG TABLET PO SCH (08:49)
[2018-09-10] MEDS: METOPROLOL SUCCINATE 50 MG TABLET PO SCH (08:49)
[2018-09-10] MEDS: PANTOPRAZOLE 40 MG TABLET PO SCH (08:49)
[2018-09-10] MEDS: SPIRONOLACTONE 25 MG TABLET PO SCH (08:49)
[2018-09-10] MEDS ORDERED: POLYETHYLENE GLYCOL 3350 17 GM PACKET PO SCH (09:00)
--- NOTE | 2018-09-10 11:48 | Discharge Plan ---
Discharge Plan Disposition: 01 Home, Self Care Condition: Good Prescriptions: Spironolactone [Aldactone] 25 mg PO DAILY #30 tablet Diet: Cardiac Activity Restrictions: Activity as Tolerated Shower Restrictions: No Assistance Devices: Walker Weight Bearing: Full Weight Instruction Topics: Spironolactone tablets, Angina, Cardiac Rehab Additional Instructions or Follow Up instructions: You were admitted for chest pain, and you underwent a cardiac work up. This included telemetry monitoring-no troubling results. EKGs- no evidence of changes. Echocardiogram- Overall results are worsened from previously. Serial labs including troponins- all negative for cardiac damage. Nuclear lexiscan test- shows no evidence of obvious coronary blockages. Also, based on this echocardiogram, you were found to have increased right heart pressures, so you have started Spironolactone and you should continue your previous lasix schedule. We suggest out patient cardiac rehab, and the most likely cause of this chest pain was the salty pizza which may have caused your heart to "stretch" from fluid overload. Follow a cardiac diet, low salt. Please see your PCP within one week. 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 Follow-Up Care: [facility] - Cardiac No Smoking: If you smoke, Please STOP! Call for help. Follow-up with: Nava Yates MD [Primary Care Provider] -
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
[2018-09-10] MEDS ORDERED: REGADENOSON 0.4 MG/5 ML SYRINGE IVP ONE ×2 (11:53→15:34)
--- NOTE | 2018-09-10 14:43 | CARDIAC PROCEDURE NOTE ---
DATE OF SERVICE: 09/10/2018 Physician: Kaur De La Cruz MD INDICATION: Chest pain. CARDIAC RISK FACTORS 1. Hypertension. 2. Family history of heart disease. 3. Elevated cholesterol. 4. The patient has a known history of nonischemic, dilated cardiomyopathy. After signing informed consent, the patient underwent a Lexiscan stress test with nuclear myocardial imaging. The patient had brief flushing, and chest pressure with neck pressure that resolved on its own in under 5 minutes. Resting heart rate 72, peak heart rate 100. Resting blood pressure 152/78, peak blood pressure 160/99. RESTING EKG: Atrial fibrillation, ventricular paced 100%. EKG AT [facility]: Atrial fibrillation with intermittent seminole QRS beats, but mostly ventricular paced; therefore, no ST segment evaluation can be done. IMPRESSION 1. Atrial fibrillation is present. 2. Her underlying rhythm is mostly ventricular paced; therefore, no ST segment evaluation can be done. 3. Brief occurrence of her chest pressure with Lexiscan stress. 4. Nuclear images reported separately. cc: Nava Yates MD TD: 09/10/2018 14:22 MTDD
--- NOTE | 2018-09-10 16:50 | Nuclear Medicine Report ---
Reason: Chest Pain Procedure Date: 09/10/2018 Accession Number: [id number] / [id number] Procedure: NM - Myocardial Perfusion STR/RST CPT Code: FULL RESULT: EXAM: SINGLE-ISOTOPE PHARMACOLOGICAL STRESS TEST WITH REGADENOSON. SINGLE-ISOTOPE AND ONE-DAY REST/STRESS MYOCARDIAL PERFUSION SCANS WITH TOMOGRAPHIC IMAGING, QUANTITATIVE ANALYSIS, WALL MOTION ANALYSIS AND CALCULATION OF EJECTION FRACTION. EXAM DATE: 09/10/2018 03:36 PM. CLINICAL HISTORY: Chest pain. COMPARISON: None. TECHNIQUE: After the intravenous administration of 10.2 mCi of Tc-99m sestamibi, a rest myocardial perfusion scan was done with tomography. Motion correction was applied when appropriate. After an appropriate delay, pharmacological stress was performed with the infusion of 0.4 mg regadenoson per protocol. According to protocol, 42.2 mCi of Tc-99m sestamibi was injected for stress myocardial perfusion scan. Motion correction was applied when appropriate. Gated tomographic images were obtained for wall motion analysis and computation of left ventricular ejection fraction. FINDINGS: No fixed or reversible perfusion defects. There is moderate chamber enlargement on both resting and stress images. There is no significant difference in the chamber size between the resting and stress images. Wall motion analysis demonstrates moderate generalized hypokinesia. Cardiac ejection fraction was measured at 35%. IMPRESSION: 1. No fixed or reversible perfusion defect. 2. Left ventricular ejection fraction of 35% which is significantly below normal. 3. Global hypokinesia. 4. Moderate ventricular cavity enlargement, which does not vary between resting and stress images. RADIA
[2018-09-10] MEDS: RIVAROXABAN 10 MG TABLET PO SCH (17:21)
[2018-09-10 17:42] VITALS: BP 134/69
[2018-09-12] MEDS ORDERED: LEVOTHYROXINE 100 MCG TABLET PO SCH (21:00)
== END 2018-09-10 18:00 | disposition home or self-care (01) ==
LOC: ED 04:38 → MS2 09:18
PROVIDERS: ADMIT Nurse Practitioner; ATTEND Nurse Practitioner
DX: R07.9 Chest pain, unspecified (principal); I11.0 Hypertensive heart disease with heart failure; I50.40 Unspecified combined systolic (congestive) and diastolic (congestive) heart failure; I27.20 Pulmonary hypertension, unspecified; I43 Cardiomyopathy in diseases classified elsewhere; I48.2 Chronic atrial fibrillation; I08.1 Rheumatic disorders of both mitral and tricuspid valves; E03.9 Hypothyroidism, unspecified; E11.9 Type 2 diabetes mellitus without complications; F41.9 Anxiety disorder, unspecified; K59.00 Constipation, unspecified; K21.9 Gastro-esophageal reflux disease without esophagitis; J31.2 Chronic pharyngitis; H54.7 Unspecified visual loss; Z79.01 Long term (current) use of anticoagulants; Z95.0 Presence of cardiac pacemaker; Z87.891 Personal history of nicotine dependence; Z87.81 Personal history of (healed) traumatic fracture; Z82.49 Family history of ischemic heart disease and other diseases of the circulatory system
CPT/HCPCS: 36415; 71046; 78452; 80053; 83690; 83735; 83880; 84100; 84443; 84484; 85025; 85610; 85730; 86140; 93005; 93017; 93306; 96374; 96375; 96376; 99284; A9270; A9500; G0378; J2060; J2785; 99285

== ENCOUNTER 2018-11-12 08:00 | Outpatient (CLI) | payer MEDICARE, OTHER ==
[2018-11-12 13:14] LABS: BASOPHILS # (AUTO) 0.1 10^3/uL (0.0-0.1); BASOPHILS % (AUTO) 1.8 %; EOSINOPHILS # (AUTO) 0.1 10^3/uL (0.0-0.7); EOSINOPHILS % (AUTO) 2.4 %; LYMPHOCYTES # (AUTO) 1.4 10^3/uL (1.5-3.5); LYMPHOCYTES % (AUTO) 23.1 %; MEAN CORPUSCULAR HEMOGLOBIN 30.9 pg (27.0-31.0); MEAN CORPUSCULAR HGB CONC 33.7 g/dL (32.0-36.0); MEAN CORPUSCULAR VOLUME 91.7 fL (81.0-99.0); MEAN PLATELET VOLUME 11.4 fL (7.9-10.8); MONOCYTES # (AUTO) 0.2 10^3/uL (0.0-1.0); MONOCYTES % (AUTO) 4.2 %; NEUTROPHILS # (AUTO) 4.1 10^3/uL (1.5-6.6); NEUTROPHILS % (AUTO) 68.5 %; PLT - PLATELET COUNT 200 10^3/uL (130-450); RED BLOOD COUNT 4.85 10^6/uL (4.20-5.40); RED CELL DISTRIBUTION WIDTH 14.7 % (12.0-15.0)
[2018-11-12 13:42] LABS: ALBUMIN/GLOBULIN RATIO 1.3 (1.0-2.2); ALKALINE PHOSPHATASE 51 IU/L (42-121); ALT ALANINE AMINOTRANSFERASE 23 IU/L (10-60); AST ASPARTATE AMINOTRANSFERASE 23 IU/L (10-42); BILIRUBIN,TOTAL 0.4 mg/dL (0.2-1.0); BUN - BLOOD UREA NITROGEN 27 mg/dL (6-20); CALCIUM 9.2 mg/dL (8.5-10.3); CARBON DIOXIDE - CO2 27 mmol/L (21-32); CHLORIDE 101 mmol/L (101-111); CHOLESTEROL 184 mg/dL; CREATININE 1.6 mg/dL (0.4-1.0); GFR - MDRD 31 (>89); GLUCOSE 143 mg/dL (70-100); HDL CHOLESTEROL 62 mg/dL; LDL CHOLESTEROL,CALCULATED 98 mg/dL; LDL/HDL RATIO 1.6 (<4.4); SODIUM 135 mmol/L (135-145); VLDL CHOLESTEROL 24 mg/dL
[2018-11-12 13:58] LABS: HB2 TOTAL 16.3 g/dL; HEMOGLOBIN A1C 0.76 g/dL; HEMOGLOBIN A1C % 6.4 % (4.6-6.2)
== END 2018-11-12 23:59 | disposition home or self-care (01) ==
LOC: LAB.WCP 08:00
PROVIDERS: ATTEND Family Medicine
DX: I11.0 Hypertensive heart disease with heart failure (principal); I50.9 Heart failure, unspecified; I48.91 Unspecified atrial fibrillation; E11.9 Type 2 diabetes mellitus without complications; E03.9 Hypothyroidism, unspecified; E78.5 Hyperlipidemia, unspecified
CPT/HCPCS: 36415; 80053; 80061; 82043; 83036; 83721; 84443; 85025

== ENCOUNTER 2019-01-07 14:52 | Outpatient (CLI) | payer MEDICARE, OTHER ==
[2019-01-07 19:41] LABS: CALCIUM 9.8 mg/dL (8.5-10.3); CREATININE 1.7 mg/dL (0.4-1.0)
== END 2019-01-07 23:59 | disposition home or self-care (01) ==
LOC: LAB.WCP 14:52
PROVIDERS: ATTEND Family Medicine
DX: I10 Essential (primary) hypertension (principal)
CPT/HCPCS: 36415; 80048

== ENCOUNTER 2019-01-12 21:05 | Outpatient (CLI) | payer MEDICARE, OTHER ==
--- NOTE | 2019-01-12 23:17 | Ultrasound Report ---
Reason: RENAL INSUFFICIENCY,ESSENTIAL HYPERTENSION,BENIGN Procedure Date: 01/12/2019 Accession Number: [id number] / [id number] Procedure: US - Retroperitoneal CPT Code: FULL RESULT: EXAM: RENAL ULTRASOUND EXAM DATE: 01/12/2019 10:17 PM. CLINICAL HISTORY: RENAL INSUFFICIENCY,ESSENTIAL HYPERTENSION,BENIGN. COMPARISON: 01/09/2011. TECHNIQUE: Real-time scanning was performed with static images obtained. FINDINGS: Right Kidney: 10.0 x 4.6 x 4.8 cm. Septated lower pole cyst measuring 2.9 x 2.6 x 3.9 cm. Mid renal cyst measuring 3.7 x 3.2 x 2.9 cm. No hydronephrosis seen. Left Kidney: 9.9 x 4.6 x 4.6 cm. Normal echotexture with no stones, contour-deforming masses, or hydronephrosis. Bladder: Bilateral jets seen. The prevoid bladder volume was 107 cc. The postvoid bladder volume was 0 cc. Other: None. IMPRESSION: 1. No hydronephrosis seen bilaterally. 2. Bilateral ureteral jets are seen in the urinary bladder. 3. There are 2 cysts in the right kidney measuring up to 3.7 cm. RADIA
== END 2019-01-12 21:06 | disposition home or self-care (01) ==
LOC: DI 21:05
PROVIDERS: ATTEND Family Medicine
DX: N28.9 Disorder of kidney and ureter, unspecified (principal); I10 Essential (primary) hypertension; Q61.02 Congenital multiple renal cysts
CPT/HCPCS: 76770

== ENCOUNTER 2019-04-09 13:46 | Outpatient (CLI) | payer MEDICARE, OTHER ==
[2019-04-09 14:05] LABS: BASOPHILS # (AUTO) 0.2 10^3/uL (0.0-0.1); BASOPHILS % (AUTO) 2.8 %; EOSINOPHILS # (AUTO) 0.1 10^3/uL (0.0-0.7); EOSINOPHILS % (AUTO) 1.9 %; HGB - HEMOGLOBIN 14.2 g/dL (12.0-16.0); LYMPHOCYTES # (AUTO) 1.8 10^3/uL (1.5-3.5); LYMPHOCYTES % (AUTO) 23.6 %; MEAN CORPUSCULAR HEMOGLOBIN 30.7 pg (27.0-31.0); MEAN CORPUSCULAR HGB CONC 32.5 g/dL (32.0-36.0); MEAN CORPUSCULAR VOLUME 94.4 fL (81.0-99.0); MEAN PLATELET VOLUME 10.4 fL (7.9-10.8); MONOCYTES # (AUTO) 0.4 10^3/uL (0.0-1.0); MONOCYTES % (AUTO) 5.6 %; NEUTROPHILS % (AUTO) 66.1 %; PLT - PLATELET COUNT 199 10^3/uL (130-450); RED BLOOD COUNT 4.61 10^6/uL (4.20-5.40); RED CELL DISTRIBUTION WIDTH 13.6 % (12.0-15.0); WHITE BLOOD COUNT 7.5 x10^3/uL (4.8-10.8)
[2019-04-09 14:08] LABS: CREATININE,URINE 28.8 mg/dL
[2019-04-09 14:09] LABS: TOTAL PROTEIN,URINE TIMED < 6 mg/dL
[2019-04-09 14:13] LABS: CALCIUM 9.2 mg/dL (8.5-10.3); CREATININE 1.4 mg/dL (0.4-1.0)
== END 2019-04-09 13:47 | disposition home or self-care (01) ==
LOC: LAB 13:46
PROVIDERS: ATTEND Internal Medicine Nephrology
DX: N05.9 Unspecified nephritic syndrome with unspecified morphologic changes (principal); D70.9 Neutropenia, unspecified; R80.9 Proteinuria, unspecified
CPT/HCPCS: 80048; 82570; 84156; 85025; 85027

== ENCOUNTER 2019-06-20 11:15 | Outpatient (CLI) | payer MEDICARE, OTHER ==
--- NOTE | 2019-06-20 11:51 | Mammography Report ---
Reason: SCREENING MAMMO Procedure Date: 06/20/2019 Accession Number: [id number] / [id number] Procedure: MGN - Screening Mammo Dig Bilat CPT Code: FULL RESULT: EXAM: Screening Mammo Dig Bilat DATE: 06/20/2019 11:40 AM CLINICAL HISTORY: Routine screening. No reported personal or family history of breast cancer. TECHNIQUE: (B) - Bilateral CC and MLO views were obtained. COMPARISON: 05/12/2018 through 03/09/2015 PARENCHYMAL PATTERN: (A) - The breasts demonstrate scattered fibroglandular densities bilaterally. FINDINGS: Bilateral breasts: There are no suspicious masses, calcifications, or areas of distortion. Pacer generator overlies and obscures a portion of the left axilla. Note: There is mild technical limitation due to patient and/or tissue mobility restrictions similar to prior exams. Best possible imaging was obtained. IMPRESSION: Negative examination. BI-RADS category 1. RECOMMENDATION: (ANNUAL) - Recommend routine annual screening mammography. BI-RADS CATEGORY: (1) - Negative. STANDARD QUALIFYING STATEMENTS: 1. This examination was not reviewed with the aid of Computer-Aided Detection (CAD). 2. A negative or benign imaging report should not preclude biopsy if clinically suspicious findings are present. 3. Dense breasts may obscure an underlying neoplasm. 4. This examination was reviewed with the aid of 3D breast imaging (tomosynthesis).
== END 2019-06-20 11:16 | disposition home or self-care (01) ==
LOC: DI.N 11:15
DX: Z12.31 Encounter for screening mammogram for malignant neoplasm of breast (principal)
CPT/HCPCS: 77067

== ENCOUNTER 2019-08-17 10:29 | Outpatient (CLI) | payer MEDICARE, OTHER ==
[2019-08-17 12:17] LABS: BASOPHILS # (AUTO) 0.1 10^3/uL (0.0-0.1); BASOPHILS % (AUTO) 1.6 %; EOSINOPHILS # (AUTO) 0.2 10^3/uL (0.0-0.7); EOSINOPHILS % (AUTO) 2.7 %; HGB - HEMOGLOBIN 14.4 g/dL (12.0-16.0); LYMPHOCYTES # (AUTO) 1.2 10^3/uL (1.5-3.5); MEAN CORPUSCULAR HEMOGLOBIN 31.8 pg (27.0-31.0); MEAN CORPUSCULAR HGB CONC 32.1 g/dL (32.0-36.0); MEAN CORPUSCULAR VOLUME 98.9 fL (81.0-99.0); MEAN PLATELET VOLUME 12.4 fL (7.9-10.8); MONOCYTES # (AUTO) 0.3 10^3/uL (0.0-1.0); NEUTROPHILS # (AUTO) 3.9 10^3/uL (1.5-6.6); NEUTROPHILS % (AUTO) 68.5 %; PLT - PLATELET COUNT 185 10^3/uL (130-450); RED BLOOD COUNT 4.53 10^6/uL (4.20-5.40); RED CELL DISTRIBUTION WIDTH 14.8 % (12.0-15.0); WHITE BLOOD COUNT 5.6 x10^3/uL (4.8-10.8)
[2019-08-17 13:16] LABS: ALBUMIN 3.9 g/dL (3.2-5.5); ALBUMIN/GLOBULIN RATIO 1.2 (1.0-2.2); ALKALINE PHOSPHATASE 49 IU/L (42-121); ALT ALANINE AMINOTRANSFERASE 27 IU/L (10-60); AST ASPARTATE AMINOTRANSFERASE 26 IU/L (10-42); BILIRUBIN,TOTAL 0.6 mg/dL (0.2-1.0); BUN - BLOOD UREA NITROGEN 27 mg/dL (6-20); CALCIUM 9.4 mg/dL (8.5-10.3); CARBON DIOXIDE - CO2 29 mmol/L (21-32); CHLORIDE 106 mmol/L (101-111); CHOLESTEROL 196 mg/dL; CREATININE 1.6 mg/dL (0.4-1.0); GFR - MDRD 31 (>89); GLUCOSE 146 mg/dL (70-100); HDL CHOLESTEROL 65 mg/dL; LDL CHOLESTEROL,CALCULATED 110 mg/dL; LDL/HDL RATIO 1.7 (<4.4); SODIUM 142 mmol/L (135-145); TOTAL PROTEIN 7.1 g/dL (6.7-8.2); VLDL CHOLESTEROL 21 mg/dL
[2019-08-17 14:12] LABS: HB2 TOTAL 14.9 g/dL; HEMOGLOBIN A1C 0.6 g/dL; HEMOGLOBIN A1C % 5.8 % (4.6-6.2)
== END 2019-08-17 23:59 | disposition home or self-care (01) ==
LOC: LAB.WCP 10:29
PROVIDERS: ATTEND Physician Assistant Medical
DX: E78.5 Hyperlipidemia, unspecified (principal); E11.9 Type 2 diabetes mellitus without complications; E03.9 Hypothyroidism, unspecified; I10 Essential (primary) hypertension
CPT/HCPCS: 36415; 80053; 80061; 83036; 83721; 84443; 85025

== ENCOUNTER 2019-10-24 08:00 | Outpatient (CLI) | payer MEDICARE, OTHER ==
[2019-10-24 19:02] LABS: ALBUMIN 4.3 g/dL (3.2-5.5); ALKALINE PHOSPHATASE 43 IU/L (42-121); ALT ALANINE AMINOTRANSFERASE 28 IU/L (10-60); AST ASPARTATE AMINOTRANSFERASE 31 IU/L (10-42); BILIRUBIN,TOTAL 0.8 mg/dL (0.2-1.0); TOTAL PROTEIN 7.3 g/dL (6.7-8.2)
[2019-10-24 19:12] LABS: BILIRUBIN,DIRECT < 0.1 mg/dL (0.1-0.5)
== END 2019-10-24 23:59 | disposition home or self-care (01) ==
LOC: LAB.WCP 08:00
PROVIDERS: ATTEND Internal Medicine Cardiovascular Disease
DX: I48.91 Unspecified atrial fibrillation (principal); Z51.81 Encounter for therapeutic drug level monitoring; Z79.899 Other long term (current) drug therapy
CPT/HCPCS: 36415; 80076; 84443

== ENCOUNTER 2020-01-04 18:33 | Outpatient (CLI) | payer MEDICARE, OTHER | END 2020-01-04 18:34 | disposition EMS.NT | LOC: EMS 18:33 | PROVIDERS: ATTEND Surgery | DX: S09.93XA Unspecified injury of face, initial encounter (principal); W01.198A Fall on same level from slipping, tripping and stumbling with subsequent striking against other object, initial encounter; Y92.000 Kitchen of unspecified non-institutional (private) residence as the place of occurrence of the external cause ==

== ENCOUNTER 2020-03-14 09:22 | Outpatient (CLI) | payer MEDICARE, OTHER ==
[2020-03-14 13:05] LABS: CREATININE 1.6 mg/dL (0.4-1.0)
[2020-03-14 13:18] LABS: HB2 TOTAL 14.7 g/dL; HEMOGLOBIN A1C 0.6 g/dL; HEMOGLOBIN A1C % 5.9 % (4.6-6.2)
== END 2020-03-14 23:59 | disposition home or self-care (01) ==
LOC: LAB.WCP 09:22
PROVIDERS: ATTEND Physician Assistant Medical
DX: E11.9 Type 2 diabetes mellitus without complications (principal)
CPT/HCPCS: 36415; 80048; 83036

== ENCOUNTER 2020-08-08 17:38 | Outpatient (CLI) | payer MEDICARE, OTHER | END 2020-08-08 17:39 | disposition home or self-care (01) | LOC: COV 17:38 | PROVIDERS: ATTEND Family Medicine | DX: R06.02 Shortness of breath (principal); R09.81 Nasal congestion; Z20.828 Contact with and (suspected) exposure to other viral communicable diseases ==

== ENCOUNTER 2020-10-02 12:42 | Outpatient (CLI) | payer MEDICARE, OTHER ==
--- NOTE | 2020-10-03 05:44 | Mammography Report ---
BILATERAL DIGITAL SCREENING MAMMOGRAM 3D/2D: 10/02/2020 CLINICAL: Routine screening. Comparison is made to exams dated: 06/20/2019 mammogram, 05/12/2018 mammogram, 04/16/2017 mammogram, mammogram, 03/09/2015 mammogram, and 03/23/2014 mammogram - [facility]. The t issue of both breasts is predominantly fatty. There is a stable benign focal asymmetry in both breasts. No significant masses, calcifications, or other findings are seen in either breast. There has been no significant interval change. IMPRESSION: BENIGN There is no mammographic evidence of malignancy. A 1 year screening mammogram is recommended. This exam was interpreted at Station ID: [id number]. NOTE: For mammograms, a report in lay terms will be sent to the patient. Approximately 15% of breast malignancies will not be visualized mammographically. In the management of a palpable breast mass, a negative mammogram must not discourage biopsy of a clinically suspicious lesion. Electronically Signed By: Bobby Angel acr/penrad:10/02/2020 13:44:44 ACR BI-RADS Category 2: Benign Finding(s) 3342F PARENCHYMAL PATTERN: (F) - The breast(s) demonstrate(s) diffuse fatty replacement. BI-RADS CATEGORY: (2) - 2 RECOMMENDATION: (ANNUAL) - Recommend routine annual screening mammography. [id number] 1 year screening LATERALITY: (B)
== END 2020-10-02 12:43 | disposition home or self-care (01) ==
LOC: DI.N 12:42
DX: Z12.31 Encounter for screening mammogram for malignant neoplasm of breast (principal)

== ENCOUNTER 2021-01-01 08:00 | Outpatient (CLI) | payer MEDICARE, OTHER ==
[2021-01-01 12:14] LABS: ESTIMATED AVERAGE GLUCOSE 134 mg/dL (70-100); HEMOGLOBIN A1c% 6.3 % (4.27-6.07)
[2021-01-01 12:35] LABS: ALBUMIN/GLOBULIN RATIO 1.3 (1.0-2.2); ALKALINE PHOSPHATASE 63 IU/L (42-121); ALT ALANINE AMINOTRANSFERASE 29 IU/L (10-60); AST ASPARTATE AMINOTRANSFERASE 28 IU/L (10-42); BILIRUBIN,TOTAL 0.5 mg/dL (0.2-1.0); BUN - BLOOD UREA NITROGEN 25 mg/dL (6-20); CALCIUM 9.5 mg/dL (8.5-10.3); CARBON DIOXIDE - CO2 27 mmol/L (21-32); CHLORIDE 102 mmol/L (101-111); CHOL/HDL RATIO 3.2 (<4.4); CHOLESTEROL 227 mg/dL; CREATININE 1.5 mg/dL (0.4-1.0); GFR - MDRD 33 (>89); GLUCOSE 145 mg/dL (70-100); HDL CHOLESTEROL 70 mg/dL; LDL CHOLESTEROL,CALCULATED 139 mg/dL; POTASSIUM 4.8 mmol/L (3.5-5.0); SODIUM 139 mmol/L (135-145); TOTAL PROTEIN 7.1 g/dL (6.7-8.2); TRIGLYCERIDES 91 mg/dL; VLDL CHOLESTEROL 18 mg/dL
== END 2021-01-01 23:59 | disposition home or self-care (01) ==
LOC: LAB.WCP 08:00
PROVIDERS: ATTEND Physician Assistant Medical
DX: E11.9 Type 2 diabetes mellitus without complications (principal)
CPT/HCPCS: 36415; 80053; 80061; 83036; 83721

== ENCOUNTER 2021-04-02 08:00 | Outpatient (CLI) | payer MEDICARE, OTHER ==
[2021-04-02 13:52] LABS: ALBUMIN 4.2 g/dL (3.2-5.5); ALBUMIN/GLOBULIN RATIO 1.4 (1.0-2.2); ALKALINE PHOSPHATASE 68 IU/L (42-121); ALT ALANINE AMINOTRANSFERASE 30 IU/L (10-60); AST ASPARTATE AMINOTRANSFERASE 30 IU/L (10-42); BILIRUBIN,TOTAL 0.7 mg/dL (0.2-1.0); BUN - BLOOD UREA NITROGEN 30 mg/dL (6-20); CALCIUM 9.6 mg/dL (8.5-10.3); CARBON DIOXIDE - CO2 27 mmol/L (21-32); CHLORIDE 104 mmol/L (101-111); CHOL/HDL RATIO 2.9 (<4.4); CHOLESTEROL 199 mg/dL; CREATININE 1.6 mg/dL (0.4-1.0); GFR - MDRD 31 (>89); GLUCOSE 153 mg/dL (70-100); HDL CHOLESTEROL 68 mg/dL; LDL CHOLESTEROL,CALCULATED 114 mg/dL; LDL/HDL RATIO 1.7 (<4.4); POTASSIUM 4.8 mmol/L (3.5-5.0); SODIUM 140 mmol/L (135-145); TOTAL PROTEIN 7.2 g/dL (6.7-8.2); TRIGLYCERIDES 86 mg/dL; VLDL CHOLESTEROL 17 mg/dL
[2021-04-02 14:28] LABS: ESTIMATED AVERAGE GLUCOSE 140 mg/dL (70-100); HEMOGLOBIN A1c% 6.5 % (4.27-6.07)
== END 2021-04-02 23:59 | disposition home or self-care (01) ==
LOC: LAB.WCP 08:00
PROVIDERS: ATTEND Physician Assistant Medical
DX: E11.9 Type 2 diabetes mellitus without complications (principal)
CPT/HCPCS: 36415; 80053; 80061; 83036; 83721

== ENCOUNTER 2021-04-10 08:00 | Outpatient (CLI) | payer MEDICARE, OTHER ==
[2021-04-10 18:34] LABS: CREATININE,URINE 116.2 mg/dL; MICROALBUM/CREATININE RATIO,UR 1.7 ug/mg (<30.0); MICROALBUMIN,URINE 0.2 mg/dL (0-300.0)
== END 2021-04-10 23:59 | disposition home or self-care (01) ==
LOC: LAB.WC 08:00
PROVIDERS: ATTEND Physician Assistant Medical
DX: E11.9 Type 2 diabetes mellitus without complications (principal)
CPT/HCPCS: 82043; 82570

== ENCOUNTER 2021-10-01 08:00 | Outpatient (CLI) | payer MEDICARE, OTHER ==
[2021-10-01 12:23] LABS: ALBUMIN/GLOBULIN RATIO 1.3 (1.0-2.2); ALKALINE PHOSPHATASE 60 IU/L (42-121); ALT ALANINE AMINOTRANSFERASE 33 IU/L (10-60); AST ASPARTATE AMINOTRANSFERASE 31 IU/L (10-42); BILIRUBIN,TOTAL 0.8 mg/dL (0.2-1.0); BUN - BLOOD UREA NITROGEN 29 mg/dL (6-20); CALCIUM 9.7 mg/dL (8.5-10.3); CARBON DIOXIDE - CO2 30 mmol/L (21-32); CHLORIDE 100 mmol/L (101-111); CHOL/HDL RATIO 2.8 (<4.4); CHOLESTEROL 196 mg/dL; CREATININE 1.7 mg/dL (0.4-1.0); GFR - MDRD 29 (>89); GLUCOSE 132 mg/dL (70-100); HDL CHOLESTEROL 69 mg/dL; LDL CHOLESTEROL,CALCULATED 108 mg/dL; LDL/HDL RATIO 1.6 (<4.4); POTASSIUM 4.3 mmol/L (3.5-5.0); SODIUM 141 mmol/L (135-145); TOTAL PROTEIN 7.2 g/dL (6.7-8.2); TRIGLYCERIDES 96 mg/dL; VLDL CHOLESTEROL 19 mg/dL
[2021-10-01 12:28] LABS: THYROID STIMULATING HORMONE 0.33 uIU/mL (0.34-5.60)
[2021-10-01 13:04] LABS: ESTIMATED AVERAGE GLUCOSE 143 mg/dL (70-100); HEMOGLOBIN A1c% 6.6 % (4.27-6.07)
[2021-10-01 13:12] LABS: FREE T4 (FREE THYROXINE) 1.97 ng/dL (0.58-1.64)
== END 2021-10-01 23:59 ==
LOC: LAB.WCP 08:00
PROVIDERS: ATTEND Physician Assistant Medical
DX: E78.5 Hyperlipidemia, unspecified (principal); E11.9 Type 2 diabetes mellitus without complications; E03.9 Hypothyroidism, unspecified
CPT/HCPCS: 36415; 80053; 80061; 83036; 83721; 84439; 84443

== ENCOUNTER 2021-10-15 13:34 | Outpatient (CLI) | payer MEDICARE, OTHER ==
--- NOTE | 2021-10-16 14:22 | Mammography Report ---
BILATERAL DIGITAL SCREENING MAMMOGRAM 3D/2D: 10/15/2021 CLINICAL: Routine screening. Comparison is made to exams dated: 10/02/2020 mammogram, 06/20/2019 mammogram, 05/12/2018 mammogram, an d 04/16/2017 mammogram - Merged with [facility]. There are scattered fibroglandular elements in both breasts. There is a stable benign focal asymmetry in both breasts. No significant masses, calcifications, or other findings are seen in either breast. There has been no significant interval change. IMPRESSION: BENIGN There is no mammographic evidence of malignancy. A 1 year screening mammogram is recommended. This exam was interpreted at Station ID: [id number]. NOTE: For mammograms, a report in lay terms will be sent to the patient. Approximately 15% of breast malignancies will not be visualized mammographically. In the management of a palpable breast mass, a negative mammogram must not discourage biopsy of a clinically suspicious lesion. Electronically Signed By: Krissy vance/tawny:10/15/2021 14:57:39 ACR BI-RADS Category 2: Benign Finding(s) 3342F PARENCHYMAL PATTERN: (A) - The breast(s) demonstrate(s) scattered fibroglandular densities. BI-RADS CATEGORY: (2) - 2 RECOMMENDATION: (ANNUAL) - Recommend routine annual screening mammography. [id number] 1 year screening LATERALITY: (B)
== END 2021-10-15 13:35 | disposition home or self-care (01) ==
LOC: DI.N 13:34
DX: Z12.31 Encounter for screening mammogram for malignant neoplasm of breast (principal)

== ENCOUNTER 2021-10-26 08:45 | Outpatient (CLI) | payer MEDICARE, OTHER | END 2021-10-26 08:46 | disposition EMS.NT | LOC: EMS 08:45 | DX: R04.0 Epistaxis (principal) ==

== ENCOUNTER 2022-03-18 00:42 | Outpatient (CLI) | payer MEDICARE, OTHER | END 2022-03-18 00:43 | disposition EMS.NT | LOC: EMS 00:42 | DX: F41.9 Anxiety disorder, unspecified (principal) ==

== ENCOUNTER 2022-10-13 11:27 | Outpatient (CLI) | payer MEDICARE, OTHER ==
[2022-10-13 18:15] LABS: BASOPHILS # (AUTO) 0.1 10^3/uL (0.0-0.1); BASOPHILS % (AUTO) 2.3 %; EOSINOPHILS # (AUTO) 0.2 10^3/uL (0.0-0.7); EOSINOPHILS % (AUTO) 3.8 %; HCT - HEMATOCRIT 47.4 % (37.0-47.0); HGB - HEMOGLOBIN 14.8 g/dL (12.0-16.0); LYMPHOCYTES # (AUTO) 1.7 10^3/uL (1.5-3.5); LYMPHOCYTES % (AUTO) 27.5 %; MEAN CORPUSCULAR HEMOGLOBIN 29.8 pg (27.0-31.0); MEAN CORPUSCULAR HGB CONC 31.2 g/dL (32.0-36.0); MEAN CORPUSCULAR VOLUME 95.4 fL (81.0-99.0); MEAN PLATELET VOLUME 13.6 fL (7.9-10.8); MONOCYTES # (AUTO) 0.3 10^3/uL (0.0-1.0); MONOCYTES % (AUTO) 5.1 %; NEUTROPHILS # (AUTO) 3.7 10^3/uL (1.5-6.6); NEUTROPHILS % (AUTO) 61.1 %; PLT - PLATELET COUNT 223 10^3/uL (130-450); RED BLOOD COUNT 4.97 10^6/uL (4.20-5.40); RED CELL DISTRIBUTION WIDTH 15.3 % (12.0-15.0)
[2022-10-13 18:25] LABS: ALBUMIN/GLOBULIN RATIO 1.3 (1.0-2.2); ALKALINE PHOSPHATASE 72 IU/L (42-121); ALT ALANINE AMINOTRANSFERASE 31 IU/L (10-60); AST ASPARTATE AMINOTRANSFERASE 31 IU/L (10-42); BILIRUBIN,TOTAL 0.9 mg/dL (0.2-1.0); BUN - BLOOD UREA NITROGEN 28 mg/dL (6-20); CALCIUM 9.6 mg/dL (8.5-10.3); CARBON DIOXIDE - CO2 30 mmol/L (21-32); CHLORIDE 103 mmol/L (101-111); CHOL/HDL RATIO 2.7 (<4.4); CHOLESTEROL 178 mg/dL; CREATININE 1.6 mg/dL (0.4-1.0); GFR - MDRD 31 (>89); GLUCOSE 159 mg/dL (70-100); HDL CHOLESTEROL 66 mg/dL; LDL CHOLESTEROL,CALCULATED 90 mg/dL; LDL/HDL RATIO 1.4 (<4.4); POTASSIUM 4.2 mmol/L (3.5-5.0); SODIUM 142 mmol/L (135-145); TOTAL PROTEIN 7.2 g/dL (6.7-8.2); TRIGLYCERIDES 111 mg/dL; VLDL CHOLESTEROL 22 mg/dL
[2022-10-13 18:40] LABS: THYROID STIMULATING HORMONE 0.22 uIU/mL (0.34-5.60)
[2022-10-13 19:18] LABS: FREE T4 (FREE THYROXINE) 2.03 ng/dL (0.58-1.64)
[2022-10-14 12:41] LABS: ESTIMATED AVERAGE GLUCOSE 151 mg/dL (70-100); HEMOGLOBIN A1c% 6.9 % (4.27-6.07)
== END 2022-10-13 11:28 | disposition home or self-care (01) ==
LOC: LAB.N 11:27
PROVIDERS: ATTEND Physician Assistant Medical
DX: E03.9 Hypothyroidism, unspecified (principal); E11.9 Type 2 diabetes mellitus without complications
CPT/HCPCS: 36415; 80053; 80061; 83036; 83721; 84439; 84443; 85025

== ENCOUNTER 2022-12-29 11:22 | Outpatient (CLI) | payer MEDICARE, OTHER ==
--- NOTE | 2022-12-30 10:52 | Mammography Report ---
BILATERAL DIGITAL SCREENING MAMMOGRAM 3D/2D: 12/29/2022 CLINICAL: Routine screening. Comparison is made to exams dated: 10/15/2021 mammogram, 10/02/2020 mammogram, 06/20/2019 mammogram, mammogram, 04/16/2017 mammogram, and 04/14/2016 mammogram - [facility]. There are scattered areas of fibroglandular density in both breasts (category b / 25%-50% glandular t issue). There is a stable benign focal asymmetry in both breasts. No significant masses, calcifications, or other findings are seen in either breast. There has been no significant interval change. IMPRESSION: BENIGN There is no mammographic evidence of malignancy. A 1 year screening mammogram is recommended. Based on the Tyrer Cuzick model (a risk assessment model) the patients lifetime risk is 0.8% and her 10 year risk is 0.0%. According to the ACR, ACS, and NCCN guidelines, an annual breast MRI exam chico g with mammogram is recommended if the patients lifetime risk is 20% or greater. This exam was interpreted at Station ID: [id number]. NOTE: For mammograms, a report in lay terms will be sent to the patient. Approximately 15% of breast malignancies will not be visualized mammographically. In the management of a palpable breast mass, a negative mammogram must not discourage biopsy of a clinically suspicious lesion. Electronically Signed By: Dakota lua/tawny:12/29/2022 13:51:13 letter sent: No_Letter ACR BI-RADS Category 2: Benign Finding(s) 3342F PARENCHYMAL PATTERN: (A) - The breast(s) demonstrate(s) scattered fibroglandular densities. BI-RADS CATEGORY: (2) - 2 RECOMMENDATION: (ANNUAL) - Recommend routine annual screening mammography. [id number] 1 year screening LATERALITY: (B)
== END 2022-12-29 11:23 | disposition home or self-care (01) ==
LOC: DI.N 11:22
DX: Z12.31 Encounter for screening mammogram for malignant neoplasm of breast (principal)

== ENCOUNTER 2023-02-02 13:39 | Outpatient (CLI) | payer MEDICARE, OTHER ==
[2023-02-02 18:02] LABS: THYROID STIMULATING HORMONE 1.63 uIU/mL (0.34-5.60)
== END 2023-02-02 13:40 | disposition home or self-care (01) ==
LOC: LAB.N 13:39
PROVIDERS: ATTEND Physician Assistant Medical
DX: E03.9 Hypothyroidism, unspecified (principal)
CPT/HCPCS: 36415; 84443

== ENCOUNTER 2023-02-27 08:45 | Outpatient (CLI) | payer MEDICARE, OTHER ==
[2023-02-27 12:32] LABS: BASOPHILS # (AUTO) 0.1 10^3/uL (0.0-0.1); BASOPHILS % (AUTO) 1.7 %; EOSINOPHILS # (AUTO) 0.2 10^3/uL (0.0-0.7); EOSINOPHILS % (AUTO) 2.7 %; HCT - HEMATOCRIT 45.7 % (37.0-47.0); HGB - HEMOGLOBIN 14.4 g/dL (12.0-16.0); LYMPHOCYTES % (AUTO) 15.6 %; MEAN CORPUSCULAR HEMOGLOBIN 30.3 pg (27.0-31.0); MEAN CORPUSCULAR HGB CONC 31.5 g/dL (32.0-36.0); MEAN CORPUSCULAR VOLUME 96.2 fL (81.0-99.0); MEAN PLATELET VOLUME 13.5 fL (7.9-10.8); MONOCYTES # (AUTO) 0.2 10^3/uL (0.0-1.0); MONOCYTES % (AUTO) 3.8 %; NEUTROPHILS # (AUTO) 4.8 10^3/uL (1.5-6.6); PLT - PLATELET COUNT 218 10^3/uL (130-450); RED BLOOD COUNT 4.75 10^6/uL (4.20-5.40); RED CELL DISTRIBUTION WIDTH 15.4 % (12.0-15.0); WHITE BLOOD COUNT 6.3 x10^3/uL (4.8-10.8)
[2023-02-27 12:49] LABS: CALCIUM 9.2 mg/dL (8.5-10.3); CREATININE 1.7 mg/dL (0.4-1.0); POTASSIUM 4.2 mmol/L (3.5-5.0)
== END 2023-02-27 09:00 | disposition home or self-care (01) ==
LOC: LAB.N 08:45
PROVIDERS: ATTEND Physician Assistant
DX: N93.9 Abnormal uterine and vaginal bleeding, unspecified (principal)
CPT/HCPCS: 36415; 80048; 85025

== ENCOUNTER 2023-03-04 21:39 | Outpatient (CLI) | payer MEDICARE, OTHER ==
--- NOTE | 2023-03-05 11:41 | Ultrasound Report ---
PROCEDURE: Pelvic w/Transvaginal INDICATIONS: ABN UTERINE BLEED TECHNIQUE: Real-time scanning was performed of the pelvic organs, with image documentation. Additional endovagi nal scanning was necessary due to incomplete visualization of the adnexal and endometrial structures by transabdominal scanning. COMPARISON: None. FINDINGS: Uterus: Uterus is anteverted and normal in size at 7.3 x 3.2 x 3.8 cm. The myometrium is homogeneou s. The endometrium measures 5 mm in combined thickness. Heterogeneous attenuation. Ovaries: Ovaries not visualized due to overlying bowel gas. Other: No pathologic free abdominal or pelvic fluid. IMPRESSION: Endometrial measures 5 mm. Consider sampling. Reviewed by: Eliceo Barrios on 03/05/2023 11:40 AM PDT Approved by: Eliceo Barrios on 03/05/2023 11:40 AM PDT Station ID: [id number]
== END 2023-03-04 21:40 | disposition home or self-care (01) ==
LOC: DI 21:39
PROVIDERS: ATTEND Physician Assistant
DX: N93.9 Abnormal uterine and vaginal bleeding, unspecified (principal)

== ENCOUNTER 2023-03-23 19:51 | Outpatient (CLI) | payer MEDICARE, OTHER | END 2023-03-23 19:52 | disposition critical access hospital (66) | LOC: EMS 19:51 | DX: R50.9 Fever, unspecified (principal); R06.02 Shortness of breath; R07.89 Other chest pain | CPT/HCPCS: A0425; A0429 ==

== ENCOUNTER 2023-03-23 20:09 | Emergency (ER) | payer MEDICARE, OTHER ==
[2023-03-23] MEDS ORDERED: IBUPROFEN 600 MG TABLET PO STA (20:21)
[2023-03-23] MEDS ORDERED: SODIUM CHLORIDE 0.9% 1,000 ML IV STA (20:21)
[2023-03-23] MEDS ORDERED: ACETAMINOPHEN 325 MG TABLET PO STA (20:21)
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
[2023-03-23 20:35] LABS: BASOPHILS # (AUTO) 0.1 10^3/uL (0.0-0.1); BASOPHILS % (AUTO) 0.6 %; EOSINOPHILS % (AUTO) 0.1 %; HCT - HEMATOCRIT 42.9 % (37.0-47.0); HGB - HEMOGLOBIN 13.8 g/dL (12.0-16.0); LYMPHOCYTES # (AUTO) 0.2 10^3/uL (1.5-3.5); LYMPHOCYTES % (AUTO) 2.3 %; MEAN CORPUSCULAR HEMOGLOBIN 30.5 pg (27.0-31.0); MEAN CORPUSCULAR HGB CONC 32.2 g/dL (32.0-36.0); MEAN CORPUSCULAR VOLUME 94.9 fL (81.0-99.0); MEAN PLATELET VOLUME 12.8 fL (7.9-10.8); MONOCYTES # (AUTO) 0.2 10^3/uL (0.0-1.0); MONOCYTES % (AUTO) 2.4 %; NEUTROPHILS # (AUTO) 8.2 10^3/uL (1.5-6.6); NEUTROPHILS % (AUTO) 94.4 %; PLT - PLATELET COUNT 142 10^3/uL (130-450); RED BLOOD COUNT 4.52 10^6/uL (4.20-5.40); RED CELL DISTRIBUTION WIDTH 15.3 % (12.0-15.0); WHITE BLOOD COUNT 8.7 x10^3/uL (4.8-10.8)
[2023-03-23 20:50] LABS: ALBUMIN 3.6 g/dL (3.2-5.5); ALBUMIN/GLOBULIN RATIO 1.1 (1.0-2.2); BILIRUBIN,TOTAL 0.9 mg/dL (0.2-1.0); CALCIUM 9.1 mg/dL (8.5-10.3); CREATININE 1.4 mg/dL (0.4-1.0); POTASSIUM 4.5 mmol/L (3.5-5.0); TOTAL PROTEIN 6.8 g/dL (6.7-8.2)
[2023-03-23 21:41] LABS: BILIRUBIN,URINE NEGATIVE (NEGATIVE); GLUCOSE, URINE (UA) NEGATIVE (NEGATIVE); KETONES,URINE (UA) NEGATIVE (NEGATIVE); LEUKOCYTE ESTERASE, URINE SMALL (NEGATIVE); NITRITE,URINE NEGATIVE (NEGATIVE); OCCULT BLOOD,URINE LARGE (NEGATIVE); PH,URINE 6.5 PH (5.0-7.5); PROTEIN,URINE TRACE mg/dL (NEGATIVE); UROBILINOGEN,URINE 0.2 (NORMAL) E.U./dL (NORMAL)
[2023-03-23 21:42] LABS: CLARITY,URINE CLOUDY (CLEAR)
[2023-03-23 21:44] LABS: B. PARAPERTUSSIS- RESP PCR PAN NOT DETECTED; B. PERTUSSIS- RESP PCR PANEL NOT DETECTED; C. PNEUMONIAE- RESP PCR PANEL NOT DETECTED; CORONAVIRUS 229E-RESP PCR NOT DETECTED; CORONAVIRUS HKU1-RESP PCR NOT DETECTED; CORONAVIRUS NL63-RESP PCR NOT DETECTED; CORONAVIRUS OC43-RESP PCR NOT DETECTED; HUMAN METAPNEUMOVIRUS NOT DETECTED; INFLUENZA A- RESP PCR PANEL NOT DETECTED; INFLUENZA B - RESP PCR PANEL NOT DETECTED; M. PNEUMONIAE- RESP PCR PANEL NOT DETECTED; PARAINFLUENZA VIRUS 1 NOT DETECTED; PARAINFLUENZA VIRUS 2 NOT DETECTED; PARAINFLUENZA VIRUS 3 NOT DETECTED; PARAINFLUENZA VIRUS 4 NOT DETECTED; RHINOVIRUS/ENTEROVIRUS NOT DETECTED; RSV- RESP PCR PANEL NOT DETECTED; SARS-CoV-2 -RESP PCR PANEL NOT DETECTED
[2023-03-23 21:47] LABS: BACTERIA,URINE Many /HPF (None Seen); RBC,URINE TNTC /HPF (0-5); SQUAMOUS EPITHELIAL CELL,UR FEW Squamous (<= Few); WBC CLUMPS,URINE PRESENT; WBC,URINE >25 /HPF (0-5)
--- NOTE | 2023-03-23 22:01 | XRAY Report ---
PROCEDURE: Chest 1 View X-Ray INDICATIONS: fever TECHNIQUE: One view of the chest was acquired. COMPARISON: Chest x-ray 09/09/2018. FINDINGS: Surgical changes and devices: Left chest wall lead pacemaker redemonstrated. Lungs and pleura: No pleural effusions or pneumothorax. Lungs demonstrate no acute airspace opacitie s. Mediastinum: Mediastinal contours appear normal. Heart size is normal. Bones and chest wall: No suspicious bony lesions. Overlying soft tissues appear unremarkable. IMPRESSION: 1. No acute cardiopulmonary disease. Reviewed by: Yung Sarabia MD on 03/23/2023 10:00 PM PDT Approved by: Yung Sarabia MD on 03/23/2023 10:00 PM PDT Station ID: [id number]
[2023-03-23] MEDS ORDERED: CIPROFLOXACIN 250 MG TABLET PO STA (22:58)
[2023-03-24 00:12] VITALS: BP 103/58
== END 2023-03-24 00:21 | disposition home or self-care (01) ==
LOC: EDUNIT# → ED 20:09
DX: N30.01 Acute cystitis with hematuria (principal); E11.9 Type 2 diabetes mellitus without complications; Z20.822 Contact with and (suspected) exposure to COVID-19
CPT/HCPCS: 36415; 71045; 80053; 81001; 83690; 84443; 84484; 85025; 87040; 87077; 87086; 87181; 87633; 93005; 99284; A9270; 81003

== ENCOUNTER 2023-03-25 04:27 | Outpatient (CLI) | payer MEDICARE, OTHER | END 2023-03-25 04:28 | disposition critical access hospital (66) | LOC: EMS 04:27 | DX: R06.02 Shortness of breath (principal) | CPT/HCPCS: A0425; A0429 ==

== ENCOUNTER 2023-03-25 04:49 | Emergency (ER) | payer MEDICARE, OTHER ==
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
[2023-03-25] MEDS ORDERED: ACETAMINOPHEN 325 MG TABLET PO STA (05:55)
[2023-03-25] MEDS ORDERED: LIDOCAINE 1% 2 ML VIAL MC ONE (06:18)
[2023-03-25] MEDS ORDERED: cefTRIAXone 1 GM VIAL IM STA (06:18)
[2023-03-25 08:13] VITALS: BP 109/63
--- NOTE | 2023-03-25 11:40 | ED Physician Documentation ---
ED Addendum - Addendum Addendum: The patient's urine culture was positive for E. coli. Resistant to ciprofloxacin. Will change to cefdinir. Departure - Departure Disposition: 01 Home, Self Care Clinical Impression: Fever Qualifiers: Fever type: unspecified Qualified Code(s): R50.9 - Fever, unspecified Condition: Good Instructions: ED Fever Control, ED UTI Cystitis Female Prescriptions: Cefdinir 300 mg PO BID #20 cap Comments: You had a fever tonight upon presentation to the emergency department. This went away after you were given Tylenol. As we discussed, the urine culture from your visit a few days ago is still pending, but the early results are consistent with urinary tract infection; this is most likely the source of your fever. You are given a dose of antibiotic as a shot in the emergency department tonight (ceftriaxone). Take the ciprofloxacin (the antibiotic that was prescribed on your recent visit) as prescribed starting this morning. Discharge Date/Time: 03/25/23 08:52
--- NOTE | 2023-03-26 11:34 | ED Physician Documentation ---
ED Addendum - Addendum Addendum: 03/26/23 11:33 The patient called back to the emergency department during my shift today and reported that the cefdinir that she had been prescribed was not available and was on shortage, and requested that her antibiotics be changed to something else. The patient had initially been seen in the emergency department and diagnosed with a urinary tract infection for which she was started on Cipro. Her sensitivities came back showing resistance to Cipro and so she had then been switched to cefdinir. I reviewed the patient's sensitivities and found that the patient could take Macrobid or Bactrim, to both of which the bacteria were sensitive. The patient additionally had no allergies. As such, I have made a new prescription for Bactrim which I have electronically transmitted to the [facility] in [place], and the patient's pharmacy of choice on record. Patient has been advised that the new prescription has been sent in.
== END 2023-03-25 08:52 | disposition home or self-care (01) ==
LOC: EDUNIT# → ED 04:49
DX: N39.0 Urinary tract infection, site not specified (principal); B96.20 Unspecified Escherichia coli [E. coli] as the cause of diseases classified elsewhere
CPT/HCPCS: 96372; 99283; A9270

== ENCOUNTER 2023-04-03 08:00 | Outpatient (CLI) | payer MEDICARE, OTHER ==
[2023-04-03 18:03] LABS: BILIRUBIN,URINE NEGATIVE (NEGATIVE); GLUCOSE, URINE (UA) 100 mg/dL (NEGATIVE); KETONES,URINE (UA) NEGATIVE (NEGATIVE); LEUKOCYTE ESTERASE, URINE NEGATIVE (NEGATIVE); NITRITE,URINE NEGATIVE (NEGATIVE); OCCULT BLOOD,URINE NEGATIVE (NEGATIVE); PROTEIN,URINE NEGATIVE (NEGATIVE); UROBILINOGEN,URINE 0.2 (NORMAL) E.U./dL (NORMAL)
[2023-04-03 18:07] LABS: CLARITY,URINE CLEAR (CLEAR)
[2023-04-03 18:37] LABS: BACTERIA,URINE Rare /HPF (None Seen); RBC,URINE 0-5 /HPF (0-5); SQUAMOUS EPITHELIAL CELL,UR FEW Squamous (<= Few); WBC,URINE 0-3 /HPF (0-5)
== END 2023-04-03 23:59 | disposition home or self-care (01) ==
LOC: LAB.WCP 08:00
PROVIDERS: ATTEND Physician Assistant
DX: N39.0 Urinary tract infection, site not specified (principal)
CPT/HCPCS: 81001; 87086

== ENCOUNTER 2023-04-30 10:00 | Outpatient (CLI) | payer MEDICARE, OTHER ==
[2023-04-30 12:07] LABS: CALCIUM 9.6 mg/dL (8.5-10.3); CREATININE 1.9 mg/dL (0.4-1.0); POTASSIUM 4.2 mmol/L (3.5-5.0)
[2023-04-30 12:08] LABS: ESTIMATED AVERAGE GLUCOSE 157 mg/dL (70-100); HEMOGLOBIN A1c% 7.1 % (4.27-6.07)
[2023-04-30 12:20] LABS: THYROID STIMULATING HORMONE 2.21 uIU/mL (0.34-5.60)
== END 2023-04-30 10:01 | disposition home or self-care (01) ==
LOC: LAB.N 10:00
PROVIDERS: ATTEND Physician Assistant Medical
DX: E11.9 Type 2 diabetes mellitus without complications (principal); E03.9 Hypothyroidism, unspecified
CPT/HCPCS: 36415; 80048; 83036; 84443

== ENCOUNTER 2023-05-11 13:41 | Outpatient (CLI) | payer MEDICARE, OTHER ==
--- NOTE | 2023-05-11 15:29 | XRAY Report ---
PROCEDURE: Lumbar Spine 2 View INDICATIONS: LOW BACK PAIN TECHNIQUE: 2 views of the lumbar spine were acquired. COMPARISON: None. FINDINGS: Bones: 5 mot-[id number]-[id number] vertebrae are present. Trace retrolisthesis L1 on 2 and L2 on 3. Grade 1 an terolisthesis L4 on 5. Mild multilevel asymmetric disc height loss. Mild multilevel superior endplate scalloping. Moderate facet sclerosis L3-S1.. No vertebral body compression fractures. No suspiciou s bony lesions. Soft tissues: Overlying bowel gas pattern is normal. No suspicious soft tissue calcifications. IMPRESSION: 1. Mild multilevel spondylolisthesis. 2. Moderate facet arthropathy in the low lumbar spine Reviewed by: Krissy He MD on 05/11/2023 2:27 PM ARI Approved by: Krissy eH MD on 05/11/2023 2:27 PM AKJUAN Station ID: [id number]
--- NOTE | 2023-05-11 15:33 | XRAY Report ---
PROCEDURE: Hips 2V BILAT INDICATIONS: HIP PAIN TECHNIQUE: 2 views of the hip were acquired. COMPARISON: None. FINDINGS: Bones: Normal mineralization. No acute fractures. There is mild congenital valgus deformity of the r ight femoral neck, mild, long-standing superior femoral acetabular migration and prominent reactive o steoarthritic changes in the right superior acetabulum and femoral head. There are sclerotic subcorti julio c cystic changes in the right femoral head and right superior acetabulum, and chronic osseous remod eling of the superior acetabulum. There is mild flattening of the femoral head shape. Moderate joint space loss in the left femoral acetabular joint and moderate acetabular and femoral he ad spurring. Small femoral head subcortical cystic change. The pelvic rings are intact. Soft tissues: No suspicious soft tissue calcifications or masses. IMPRESSION: 1. 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 2. Moderate left hip osteoarthritic change. Reviewed by: Krissy He MD on 05/11/2023 2:31 PM ARI Approved by: Krissy He MD on 05/11/2023 2:31 PM AKJUAN Station ID: [id number]
== END 2023-05-11 13:42 | disposition home or self-care (01) ==
LOC: DI 13:41
PROVIDERS: ATTEND Physician Assistant Medical
DX: M47.816 Spondylosis without myelopathy or radiculopathy, lumbar region (principal); M47.817 Spondylosis without myelopathy or radiculopathy, lumbosacral region; M43.16 Spondylolisthesis, lumbar region; M16.0 Bilateral primary osteoarthritis of hip; Q65.89 Other specified congenital deformities of hip

== ENCOUNTER 2023-07-16 08:00 | Outpatient (CLI) | payer MEDICARE, OTHER ==
--- NOTE | 2023-07-16 16:33 | XRAY Report ---
PROCEDURE: Knee 4 View BILAT INDICATIONS: BILAT KNEE PAIN TECHNIQUE: 4 views of each knee(s) were acquired. COMPARISON: X-ray right knee, 10/23/2017. FINDINGS: Right knee: ORIF of tibial plateau fracture and tibial and femoral shaft fractures. No acute fractur e or dislocation. Moderate tricompartmental knee joint degeneration. Moderate joint space narrowing i n the lateral femorotibial compartment with weightbearing. No knee joint effusion. No suspicious soft tissue calcifications or masses. Left knee: No fracture or dislocation. Moderate tricompartmental knee joint degeneration. Severe daina nt space narrowing in the medial femorotibial compartment with weightbearing. No knee joint effusion. No suspicious soft tissue calcifications or masses. IMPRESSION: 1. Moderate osteoarthritic changes bilaterally, left greater than right. 2. Old injuries of the right knee/lower extremity with ORIF of tibial plateau fracture and tibial and fibular shaft fractures. Reviewed by: Renny Atkins MD on 07/16/2023 4:32 PM PDT Approved by: Renny Atkins MD on 07/16/2023 4:32 PM PDT Station ID: [id number]
== END 2023-07-16 23:59 | disposition home or self-care (01) ==
LOC: DI.WOS 08:00
PROVIDERS: ATTEND Physician Assistant Surgical
DX: M17.0 Bilateral primary osteoarthritis of knee (principal); S82.141D Displaced bicondylar fracture of right tibia, subsequent encounter for closed fracture with routine healing; S82.201D Unspecified fracture of shaft of right tibia, subsequent encounter for closed fracture with routine healing

== ENCOUNTER 2023-08-04 10:16 | Outpatient (CLI) | payer MEDICARE, OTHER ==
[2023-08-04 13:09] LABS: CALCIUM 9.9 mg/dL (8.5-10.3); CREATININE 1.4 mg/dL (0.6-1.3); POTASSIUM 4.6 mmol/L (3.5-4.5)
[2023-08-04 14:18] LABS: ESTIMATED AVERAGE GLUCOSE 148 mg/dL (70-100); HEMOGLOBIN A1c% 6.8 % (4.27-6.07)
== END 2023-08-04 10:17 | disposition home or self-care (01) ==
LOC: LAB.N 10:16
PROVIDERS: ATTEND Physician Assistant Medical
DX: E11.9 Type 2 diabetes mellitus without complications (principal)
CPT/HCPCS: 36415; 80048; 83036

== ENCOUNTER 2023-09-09 13:42 | Outpatient (CLI) | payer MEDICARE, OTHER ==
[2023-09-09 17:35] LABS: HCT - HEMATOCRIT 44.1 % (37.0-47.0); HGB - HEMOGLOBIN 13.6 g/dL (12.0-16.0); MEAN CORPUSCULAR HEMOGLOBIN 30.6 pg (27.0-31.0); MEAN CORPUSCULAR HGB CONC 30.8 g/dL (32.0-36.0); MEAN CORPUSCULAR VOLUME 99.1 fL (81.0-99.0); MEAN PLATELET VOLUME 13.2 fL (7.9-10.8); RED BLOOD COUNT 4.45 10^6/uL (4.20-5.40); RED CELL DISTRIBUTION WIDTH 14.4 % (12.0-15.0); WHITE BLOOD COUNT 7.3 x10^3/uL (4.8-10.8)
[2023-09-09 18:18] LABS: CALCIUM 10.1 mg/dL (8.5-10.3); CREATININE 1.6 mg/dL (0.6-1.3); PHOSPHORUS 3.4 mg/dL (2.5-5.0); POTASSIUM 4.8 mmol/L (3.5-4.5)
== END 2023-09-09 13:43 | disposition home or self-care (01) ==
LOC: LAB.N 13:42
PROVIDERS: ATTEND Internal Medicine Nephrology
DX: E11.9 Type 2 diabetes mellitus without complications (principal); N05.9 Unspecified nephritic syndrome with unspecified morphologic changes; N25.81 Secondary hyperparathyroidism of renal origin; E83.30 Disorder of phosphorus metabolism, unspecified; R80.9 Proteinuria, unspecified; D70.9 Neutropenia, unspecified; D63.1 Anemia in chronic kidney disease
CPT/HCPCS: 36415; 80048; 82570; 83970; 84100; 84156; 85027

== ENCOUNTER 2023-09-10 08:00 | Outpatient (CLI) | payer MEDICARE, OTHER ==
[2023-09-10 18:47] LABS: CREATININE,URINE 39.4 mg/dL; PROTEIN/CREATININE RATIO,URINE 0.1 (<=0.2)
== END 2023-09-10 23:59 | disposition home or self-care (01) ==
LOC: LAB.N 08:00
PROVIDERS: ATTEND Internal Medicine Nephrology
DX: R80.9 Proteinuria, unspecified (principal)
CPT/HCPCS: 82570; 84156

== ENCOUNTER 2023-10-07 09:39 | Observation (INO) | payer MEDICARE, OTHER ==
[~2023-10-07 09:39] MED LIST: dexAMETHasone 4 MG TABLET PO ONE
[2023-10-07] MEDS ORDERED: ceFAZolin 2 GM VIAL ONE (09:43)
[2023-10-07] MEDS ORDERED: CELECOXIB 100 MG CAPSULE PO ONE (09:44)
[2023-10-07] MEDS ORDERED: ACETAMINOPHEN 500 MG TABLET PO ONE (09:45)
[2023-10-07] MEDS ORDERED: BUPIVACAINE 0.25% PF 30 ML VIAL ONE (10:23)
[2023-10-07] MEDS ORDERED: LACTATED RINGERS 1,000 ML IV ONE ×2 (10:30→15:50)
--- NOTE | 2023-10-07 11:14 | ANESTHESIA ---
Pre-Anesthesia VS, & Labs Vital Signs: Temp Pulse Resp BP Pulse Ox O2 Flow Rate 36.2 C L 70 15 121/75 99 10/07/23 10:10 10/07/23 10:10 10/07/23 10:10 10/07/23 10:10 10/07/23 10:10 Height: 5 ft 9 in Weight (kg): 81.2 kg Body Mass Index: 26.4 BMI Classification: Overweight - NPO >8 hours - Is Patient ?: No - Lab Results Current Lab Results: Laboratory Tests 10/07/23 10:16: POC Whole Bld Glucose 198 H Home Medications and Allergies Home Medications: Ambulatory Orders Echinacea Purpurea Aerial Ext [Echinacea] 65 mg PO DAILY 10/01/23 Fluticasone [Flonase] 2 sprays CHERYL DAILY 10/01/23 Metronidazole 1% Gel [Metrogel] 1 applic TOP BID 10/01/23 Multivitamin 1 each PO DAILY 10/01/23 Rosuvastatin Calcium [Crestor] 10 mg PO DAILY 10/01/23 Spironolactone [Aldactone] 25 mg PO ONCE 10/01/23 Valsartan [Diovan] 40 mg PO DAILY 10/01/23 Furosemide [Lasix] 20 - 40 mg PO DAILY PRN MDD 40MG 02/07/15 Lysine [l-Lysine] 500 mg PO QPM 03/11/15 Metoprolol Succinate 50 mg PO BID 06/25/17 Rivaroxaban [Xarelto] 15 mg PO QDDINNER 06/25/17 Levothyroxine Sodium 200 mcg PO MOTUTHFRSA@209909/09/18 Levothyroxine Sodium 400 mcg PO SUWE@209909/09/18 Echinacea Purpurea Aerial Ext [Echinacea] 65 mg PO DAILY 10/01/23 Fluticasone [Flonase] 2 sprays CHERYL DAILY 10/01/23 Metronidazole 1% Gel [Metrogel] 1 applic TOP BID 10/01/23 Multivitamin 1 each PO DAILY 10/01/23 Rosuvastatin Calcium [Crestor] 10 mg PO DAILY 10/01/23 Spironolactone [Aldactone] 25 mg PO ONCE 10/01/23 Valsartan [Diovan] 40 mg PO DAILY 10/01/23 Allergies/Adverse Reactions: Allergies Allergy/AdvReac Type Severity Reaction Status Date / Time No Known Drug Allergies Allergy Verified 03/23/23 20:19 Anes History & Medical History - Medical History Cardiovascular: reports: Hypertension, High cholesterol, Angina, Atrial flutter, Atrial fibrillation, Murmur, Arrhythmia Pulmonary: reports: None Gastrointestinal: reports: None Urinary: reports: Renal insuffiency Neuro: reports: None Musculoskeletal: reports: Osteoarthritis Endocrine/Autoimmune: reports: Type 2 diabetes, HyPOthyroidism Blood Disorders: reports: None Skin: reports: None Smoking Status: Never smoker - Surgical History General: reports: Cholecystectomy, Colonoscopy Eyes Ears Nose Throat (EENT): reports: Cataracts Cardiothoracic: reports: Pacemaker, AICD Gynecologic: reports: Tubal ligation Orthopedic: reports: Other Dermatologic: reports: Skin grafts
[2023-10-07] MEDS ORDERED: VANCOMYCIN 1 GM VIAL ONE (11:35)
[2023-10-07] MEDS ORDERED: ONDANSETRON 4 MG/2 ML VIAL IVP PRN ×2 (12:11→15:31)
[2023-10-07] MEDS ORDERED: ePHEDrine 50 MG/ML VIAL IVP PRN (12:11)
[2023-10-07] MEDS ORDERED: HYDROmorphone 0.5 MG/0.5 ML SYRINGE IVP PRN (12:11)
[2023-10-07] MEDS ORDERED: fentaNYL 100 MCG/2 ML VIAL IVP PRN (12:11)
[2023-10-07] MEDS ORDERED: NALOXONE 0.4 MG/ML VIAL IVP PRN (12:11)
[2023-10-07] MEDS ORDERED: METOCLOPRAMIDE 10 MG/2 ML VIAL IVP PRN (12:11)
[2023-10-07] MEDS ORDERED: ATROPINE ABBOJECT 1 MG/10 ML SYRINGE IVP PRN (12:11)
[2023-10-07] MEDS ORDERED: MORPHINE 2 MG/ML CARPUJECT IVP PRN (12:11)
--- NOTE | 2023-10-07 12:11 | ANESTHESIA ---
Pre-Anesthesia VS, & Labs - Diagnosis B hip OA - Procedure R KATARZYNA Vital Signs: Temp Pulse Resp BP Pulse Ox O2 Flow Rate 36.2 C L 70 15 121/75 99 10/07/23 10:10 10/07/23 10:10 10/07/23 10:10 10/07/23 10:10 10/07/23 10:10 Height: 5 ft 9 in Weight (kg): 81.2 kg Body Mass Index: 26.4 BMI Classification: Overweight - NPO >8 hours - Is Patient ?: No - Lab Results Current Lab Results: Laboratory Tests 10/07/23 10:16: POC Whole Bld Glucose 198 H Home Medications and Allergies Home Medications: Ambulatory Orders Echinacea Purpurea Aerial Ext [Echinacea] 65 mg PO DAILY 10/01/23 Fluticasone [Flonase] 2 sprays CHERYL DAILY 10/01/23 Metronidazole 1% Gel [Metrogel] 1 applic TOP BID 10/01/23 Multivitamin 1 each PO DAILY 10/01/23 Rosuvastatin Calcium [Crestor] 10 mg PO DAILY 10/01/23 Spironolactone [Aldactone] 25 mg PO ONCE 10/01/23 Valsartan [Diovan] 40 mg PO DAILY 10/01/23 Furosemide [Lasix] 20 - 40 mg PO DAILY PRN MDD 40MG 02/07/15 Lysine [l-Lysine] 500 mg PO QPM 03/11/15 Metoprolol Succinate 50 mg PO BID 06/25/17 Rivaroxaban [Xarelto] 15 mg PO QDDINNER 06/25/17 Levothyroxine Sodium 200 mcg PO MOTUTHFRSA@209909/09/18 Levothyroxine Sodium 400 mcg PO SUWE@209909/09/18 Echinacea Purpurea Aerial Ext [Echinacea] 65 mg PO DAILY 10/01/23 Fluticasone [Flonase] 2 sprays CHERYL DAILY 10/01/23 Metronidazole 1% Gel [Metrogel] 1 applic TOP BID 10/01/23 Multivitamin 1 each PO DAILY 10/01/23 Rosuvastatin Calcium [Crestor] 10 mg PO DAILY 10/01/23 Spironolactone [Aldactone] 25 mg PO ONCE 10/01/23 Valsartan [Diovan] 40 mg PO DAILY 10/01/23 Allergies/Adverse Reactions: Allergies Allergy/AdvReac Type Severity Reaction Status Date / Time No Known Drug Allergies Allergy Verified 03/23/23 20:19 Anes History & Medical History - Anesthetic History Anesthesia Complications: reports: No previous complications Family history of Anesthesia Complications: Denies Family history of Malignant Hyperthermia: Denies - Medical History Cardiovascular: reports: Hypertension, High cholesterol, Angina, Atrial flutter, Atrial fibrillation, Murmur, Arrhythmia Pulmonary: reports: None Gastrointestinal: reports: None Urinary: reports: Renal insuffiency Neuro: reports: None Musculoskeletal: reports: Osteoarthritis Endocrine/Autoimmune: reports: Type 2 diabetes, HyPOthyroidism Blood Disorders: reports: None Skin: reports: None Smoking Status: Never smoker Psychosocial: reports: No issues indicated History of Cancer?: No - Surgical History General: reports: Cholecystectomy, Colonoscopy Eyes Ears Nose Throat (EENT): reports: Cataracts Cardiothoracic: reports: Pacemaker, AICD Gynecologic: reports: Tubal ligation Orthopedic: reports: Other Dermatologic: reports: Skin grafts Exam General: Alert, Oriented x3, Cooperative Dental: Dentures full Upper Mouth Openin Fingerbreadth Neck Mobility: Normal Mallampati classification: II Thyromental Distance: 4-6 cm Respiratory: Lungs clear Plan Anesthesia Type: General, Spinal, Fascia Iliaca Block Consent for Procedure(s) Verified and Reviewed: Yes Code Status: Attempt Resuscitation ASA classification: 3-Severe systemic disease Is this case an emergency?: No
[2023-10-07] MEDS ORDERED: MIDAZOLAM 2 MG/2 ML VIAL ONE (12:40)
[2023-10-07] MEDS ORDERED: PROPOFOL 500 MG/50 ML 500 MG/50 ML VIAL ONE (12:42)
[2023-10-07] MEDS ORDERED: BUPIVACAINE 0.5% PF 10 ML VIAL ONE (12:42)
[2023-10-07] MEDS ORDERED: TRANEXAMIC ACID 1,000 MG/10 ML VIAL ONE ×2 (12:49→14:34)
[2023-10-07] MEDS ORDERED: LACTATED RINGERS 1,000 ML IV SCH (13:00)
[2023-10-07] MEDS ORDERED: ePHEDrine 50 MG/ML VIAL IVP ONE (13:27)
[2023-10-07] MEDS ORDERED: PHENYLEPHRINE HCL 0.5 MG/5 ML AMPULE ONE (13:27)
[2023-10-07] MEDS ORDERED: PROPOFOL 200 MG/20 ML VIAL IVP ONE (14:56)
[2023-10-07] MEDS ORDERED: VANCOMYCIN 1 GM VIAL MC ONE (14:58)
[2023-10-07] MEDS ORDERED: ROPIVACAINE 0.5% PF 20 ML VIAL ONE (15:04)
--- NOTE | 2023-10-07 15:09 | OPERATIVE REPORT ---
Operative Report - General Procedure Date: 10/07/23 Planned Procedure: Right total hip replacement Pre-Op Diagnosis: Osteoarthritis right hip Procedure Performed: Right total hip arthroplasty: [employer] #8 DIEZ-coated anthology femoral arthur m, 54 mm R3 acetabular cup with single acetabular screw, neutral polyethylene liner, high offset neck, 36 mm Oxinium +0 femoral head Post Op Diagnosis: Same as preoperative diagnosis - Procedure Note Primary Surgeon: Jet Golden MD Secondary Surgeon: Errol Dickson MD, Dalton ECKERT Anesthesia Provider: [employer]ar [employer] CNA Anesthesia Technique: Regional block, Spinal Estimated Blood Loss (mL): 200 Indications: This is an 83-year-old woman with advanced symptomatic bilateral hip osteoarthritis. Symptoms are greatest on the right side. She is in reasonably good health. She is limited in her ability to do activities she enjoys that require walking and is very difficult to do activities of daily living because of the pain. She had painful and limited motion to the right hip. Her x-rays showed advanced osteoarthritis of the right hip with [id number]-[id number]-buba contact, superior subluxation and incomplete coverage of the femoral head with femoral head deformity and osteophytes. She has attended joint camp and has had preoperative medical evaluation. She has signed informed consent and is agreement to this surgery to be performed as outpatient at [facility] Findings: She had deformity of the femoral head. There is complete loss of articular cartilage to femoral head and acetabulum. There is some deficiency to the superior acetabulum. There is marked osteophytes around the femoral neck head junction Complications: None - Other Other Information/Narrative: After satisfactory spinal anesthesia had been achieved, the patient was placed in a lateral decubitus position with the right hip facing superiorly. He was secured in the lateral decubitus position using a pegboard with 2 post securing the torso and 2 posts securing the pelvis. The right hip and right lower extremity were prepped and draped in a sterile manner in the usual fashion. A timeout procedure was performed by the entire operating room team and all were in agreement. A longitudinal incision was made about the lateral right hip beginning at the vastus lateralis ridge of the proximal femur and extending it proximally approximately 3 fingerbreadths above the trochanter. The subcutaneous tissue and fascia rafi were split in line with the incision. The anterior one third of the gluteus medius was incised at the myotendinous junction. The gluteus medius was retracted medially. The hip capsule was exposed and was split in a T-shaped fashion. Part of the anterior hip capsule was excised. The femoral head was dislocated with flexion, adduction and external rotation. An osteotomy was done to the femoral neck using a osteotomy guide. Retractors were placed behind the femoral neck to protect the soft tissues from the oscillating saw. The proximal femur was retracted. 2 acetabular retractors were placed one anteriorly directly against bone to reduce any soft tissue impingement to femoral nerve. The second retractor was placed more posteriorly directly against bone and preventing any impingement against sciatic nerve. The acetabulum was prepared with a large curette. Medialization of the acetabulum was performed with a small acetabular reamer and then widening was done up to a 53 mm reamer the final reamers were placed in approximately 20 degrees anteversion and 45 degrees of abduction. A trial acetabular component was inserted, 53 mm and this fit well. A permanent 54 mm R3 acetabular 3-hole component was then impacted in 40 degrees of abduction and approximately 20 degrees of anteversion. This had good fixation to push pull and rotation. A single 30 mm superior acetabular screw was inserted. The stability of the acetabular cup was very good. A trial acetabular liner was inserted into the cup. The femoral canal was opened with a box osteotome, starting reamer and then a short broach. Broaching was carried out to a #4. Calcar reaming was performed. Good fit and stability to the #8 stem was achieved. Trial reduction was performed. Hip motion was very good and the hip was stable to dislocation maneuvers. The trial components were removed. A permanent acetabular liner was impacted into the acetabular cup. The #8 Anthology femoral stem was impacted and fully seated. The femoral head was impacted on the femoral trunnion. There was good stability to push pull and rotation. A 36 mm +4 head was impacted on the trunnion. The hip was reduced, had good leg length tension and good stability with dislocation maneuvers. 3-minute lavage with dilute Betadine was performed. The hip abductors were repaired at the myotendinous junction with #1 stratofix. The fascia rafi was closed with #1 stratofix. The subcutaneous tissue was closed with 2-0 stratofix. The skin was closed with a 3-0 Monocryl subcuticular closure and Dermabond. He tolerated the procedure well. A physician wardrobe assistant was utilized during the procedure to provide retraction and protection of neurovascular structures as well as to facilitate dislocation and reduction of the hip joint.
[2023-10-07] MEDS ORDERED: fentaNYL 250 MCG/5 ML VIAL IVP PRN (15:31)
[2023-10-07] MEDS ORDERED: oxyCODONE 5 MG TABLET PO PRN (15:31)
[2023-10-07] MEDS ORDERED: SODIUM CHLORIDE FLUSH 0.9% 10 ML SYRINGE IVP PRN (15:31)
[2023-10-07] MEDS ORDERED: traMADol 50 MG TABLET PO PRN (15:31)
[2023-10-07] MEDS ORDERED: DOCUSATE SODIUM 100 MG CAPSULE PO PRN (15:31)
[2023-10-07] MEDS: NS W/20 MEQ KCL 1,000 ML IV SCH (17:29)
[2023-10-07] MEDS: ceFAZolin (2G) 2 GM in SODIUM CHLORIDE 0.9% MINIBAG 100 ML IV SCH ×2 (17:30→23:56)
[2023-10-07] MEDS: ACETAMINOPHEN 500 MG TABLET PO SCH ×2 (17:30→21:33)
[2023-10-07] MEDS: ENOXAPARIN 40 MG/0.4 ML SYRINGE SUBQ SCH (17:34)
[2023-10-07] MEDS: SODIUM CHLORIDE FLUSH 0.9% 10 ML SYRINGE IVP SCH ×2 (17:36→23:56)
--- NOTE | 2023-10-07 18:26 | ANESTHESIA POST OP EVALUATION ---
Anesthesia Post Eval - Post Anesthesia Eval Vitals: Last Vital Signs Temp 36.3 C L 10/07/23 17:18 Pulse 65 10/07/23 17:18 Resp 16 10/07/23 17:18 BP 128/85 H 10/07/23 17:18 Pulse Ox 95 10/07/23 17:18 O2 Flow Rate CV Function Including HR & BP: Stable Pain Control: Satisfactory Nausea & Vomiting: Negative Mental Status: Baseline Respiratory Status: Airway Patent Hydration Status: Satisfactory Anesthesia Complications: None
--- NOTE | 2023-10-07 19:39 | XRAY Report ---
PROCEDURE: Hip w/Pelvis 1V RT INDICATIONS: post operative imaging TECHNIQUE: AP view of the pelvis COMPARISON: Right hip radiograph on May 11, 2023. FINDINGS: Bones: Evaluation is limited on single view. Status post right total hip arthroplasty. Hardware appea rs intact on single view. Anatomic alignment. Moderate joint space narrowing and articular osteophyto sis of the left hip. Moderate multilevel degenerative changes of the visualized lumbar spine and bila teral SI joints. Soft tissues: Soft tissue swelling and gas about the right hip. No suspicious soft tissue calcificat ions or masses. IMPRESSION: Evaluation is limited on single view. 1. Status post right total hip arthroplasty which appears intact with anatomic alignment on limited v iew. 2. Moderate left hip osteoarthritis. Reviewed by: Wilfredo Ayers MD on 10/07/2023 7:37 PM PST Approved by: Wilfredo Ayers MD on 10/07/2023 7:37 PM PST Station ID: [id number]
[2023-10-07] MEDS: METOPROLOL SUCCINATE 50 MG TABLET PO SCH (20:33)
[2023-10-07] MEDS: CELECOXIB 100 MG CAPSULE PO SCH (20:33)
[2023-10-07] MEDS: ethyl alcohoL 62% SWAB AMPULE NAS SCH (20:33)
[2023-10-08] MEDS: ACETAMINOPHEN 500 MG TABLET PO SCH ×4 (04:03→21:56)
[2023-10-08 05:49] LABS: BASOPHILS % (AUTO) 0.1 %; HCT - HEMATOCRIT 39.4 % (37.0-47.0); HGB - HEMOGLOBIN 12.5 g/dL (12.0-16.0); LYMPHOCYTES # (AUTO) 0.5 10^3/uL (1.5-3.5); LYMPHOCYTES % (AUTO) 4.8 %; MEAN CORPUSCULAR HEMOGLOBIN 30.7 pg (27.0-31.0); MEAN CORPUSCULAR HGB CONC 31.7 g/dL (32.0-36.0); MEAN CORPUSCULAR VOLUME 96.8 fL (81.0-99.0); MEAN PLATELET VOLUME 13.1 fL (7.9-10.8); MONOCYTES # (AUTO) 0.2 10^3/uL (0.0-1.0); MONOCYTES % (AUTO) 1.9 %; NEUTROPHILS # (AUTO) 9.7 10^3/uL (1.5-6.6); NEUTROPHILS % (AUTO) 92.9 %; PLT - PLATELET COUNT 174 10^3/uL (130-450); RED BLOOD COUNT 4.07 10^6/uL (4.20-5.40); WHITE BLOOD COUNT 10.5 x10^3/uL (4.8-10.8)
[2023-10-08] MEDS: NS W/20 MEQ KCL 1,000 ML IV SCH (08:24)
[2023-10-08] MEDS: METOPROLOL SUCCINATE 50 MG TABLET PO SCH ×2 (08:31→20:39)
[2023-10-08] MEDS: CELECOXIB 100 MG CAPSULE PO SCH ×2 (08:31→20:39)
[2023-10-08] MEDS: ethyl alcohoL 62% SWAB AMPULE NAS SCH ×2 (08:32→20:39)
[2023-10-08] MEDS: FLUTICASONE NASAL SPRAY NAS SCH (08:33)
[2023-10-08] MEDS: SODIUM CHLORIDE FLUSH 0.9% 10 ML SYRINGE IVP SCH ×2 (08:33→18:15)
[2023-10-08] MEDS ORDERED: FUROSEMIDE 20 MG TABLET PO SCH (09:00)
[2023-10-08] MEDS ORDERED: LOSARTAN 50 MG TABLET PO SCH (09:00)
--- NOTE | 2023-10-08 11:43 | PHARMACY PROGRESS NOTE ---
- Best Possible Medication History Admit Date and Time: Processed by: Nursing As the person ultimately responsible for medication therapy, providers are able to order a medication from an existing home medication list in [facility] via the "Reconcile Routine" prior to Confirmation of that medication by instructional support assistant. Such practice is discouraged except when the physician, in their clinical judgment, deems that a medical need exists for a medication without regard to previous use.
--- NOTE | 2023-10-08 12:53 | PROVIDER PROGRESS NOTE ---
Subjective - General Procedure Date: 10/07/23 Post Op Days: 1 Procedure Performed: Right total hip arthroplasty - Other Other Information/Narrative: Alert, pleasant, awake in bed She reports well controlled pain She has not yet been out of bed with physical therapy She is using a purewick catheter at this time She denies chest pain, dyspnea, nausea or emeis She is tolerating a normal diet Objective - Patient Data Reviewed Vital Signs: Yes Vital Signs: Vital Signs x48h Temp Pulse Resp BP Pulse Ox 10/08/23 07:46 36.7 C 71 16 125/70 94 Weight: Weight 10/06/23 10/07/23 10/08/23 23:59 23:59 23:59 Weight (kg) 81.2 kg Intake & Output: Intake and Output Totals x24h 10/06/23 10/07/23 10/08/23 23:59 23:59 23:59 Intake Total 1650 1660 Output Total 250 1300 Balance 1400 360 - Lab Results Lab Results: 10/08/23 04:24 Other Lab Results: Lab Results x24hrs 10/08/23 Range/Units 04:24 WBC 10.5 (4.8-10.8) x10^3/uL RBC 4.07 L (4.20-5.40) 10^6/uL Hgb 12.5 (12.0-16.0) g/dL Hct 39.4 (37.0-47.0) % MCV 96.8 (81.0-99.0) fL MCH 30.7 (27.0-31.0) pg MCHC 31.7 L (32.0-36.0) g/dL RDW 13.0 (12.0-15.0) % Plt Count 174 (130-450) 10^3/uL MPV 13.1 H (7.9-10.8) fL Neut # (Auto) 9.7 H (1.5-6.6) 10^3/uL Lymph # (Auto) 0.5 L (1.5-3.5) 10^3/uL [place] # (Auto) 0.2 (0.0-1.0) 10^3/uL Eos # (Auto) 0.0 (0.0-0.7) 10^3/uL Baso # (Auto) 0.0 (0.0-0.1) 10^3/uL Absolute Nucleated RBC 0.00 x10^3/uL Nucleated RBC % 0.0 /100WBC - Imaging Results Radiology Imaging: positive: Final report received - Current Medications Current Medications: Current Medications Generic Name Dose Route Start Last Admin Trade Name Freq PRN Reason Stop Dose Admin Acetaminophen 1,000 mg 10/07/23 16:00 10/08/23 10:48 Acetaminophen 500 Mg Tablet PO 1,000 mg Q6H WILEY Administration Alcohol 1 amp 10/07/23 21:00 10/08/23 08:32 Ethyl Alcohol 62% Swab Ampule CHERYL 1 amp BID WILEY Administration Celecoxib 200 mg 10/07/23 21:00 10/08/23 08:31 Celecoxib 100 Mg Capsule PO 200 mg BID WILEY Administration Enoxaparin Sodium 40 mg 10/07/23 16:00 10/07/23 17:34 Enoxaparin 40 Mg/0.4 Ml Syringe SUBQ Not Given Q24H WILEY Fluticasone Propionate 2 sprays 10/08/23 09:00 10/08/23 08:33 Fluticasone Nasal [place] CHERYL Not Given DAILY WILEY Furosemide 20 mg 10/08/23 09:00 10/08/23 08:33 Furosemide 20 Mg Tablet PO Not Given DAILY WILEY Potassium Chloride/Sodium Chloride 1,000 mls @ 75 mls/hr 10/07/23 16:00 10/08/23 08:24 Normal Saline 0.9% W/20 Meq Kcl IV 75 mls/hr .[id number] WILEY Administration Losartan Potassium 25 mg 10/08/23 09:00 10/08/23 08:31 Losartan 50 Mg Tablet PO 25 mg DAILY WILEY Administration Metoprolol Succinate 50 mg 10/07/23 21:00 10/08/23 08:31 Metoprolol Succinate 50 Mg Tablet PO 50 mg BID WILEY Administration Oxycodone HCl 5 mg 10/07/23 15:31 10/08/23 11:06 Oxycodone 5 Mg Tablet PO 5 mg Q6HR PRN Administration Severe Breakthrough pain(8-10) Sodium Chloride 10 ml 10/07/23 17:00 10/08/23 08:33 Sodium Chloride Flush 0.9% 10 Ml Syringe IVP Not Given 0100,0900,1700 [facility] - Physical Exam Comments/Other: Dressing is dry and intact without drainage or hematoma Alert and oriented, no acute distress Neurovascular intact to right lower extremity in femoral and sciatic nerve distributions ABX Reporting Has patient been on IV antibiotics over the past 48 hours?: Yes Impression/Plan - Problem List Problem List: 83 year old female with a past medical history of atrial fibrillation (on Xarelto), hypertension, pre-diabetes, hypothyroidism and congestive heart failure is post operative day 1 from a right total hip arthroplasty. She is recovering well with adequate pain control without narcotics and is awaiting evaluation from physical therapy prior to planned discharge home today. 71 year old female with a past medical history of CVA, anemia, hypertension, and osteoporosis is post operative day 1 from a right total knee arthroplasty by Dr. Golden at 07/16/2023. She is recovering well, tolerating oral diet well and has adequate pain control. She has worked with physical therapy with good effect. Plan: - DVT prophylaxis with lovenox in the hospital and resume home xarelto after discharge, SCDs in hospital - Physical and occupational therapy evaluation today and assessment for discharge home - Pain control with scheduled tylenol, celebrex, tramadol and oxycodone and IV fentanyl as needed - Weight bearing as tolerated with front wheeled walker at all times - Follow up with orthopedic clinic in 5 days - Mepilex dressing to remain in place until follow up - Refer to OPS discharge instructions and call the orthopedic office with outstanding questions - [phone] - Bowel regimen as needed - Normal diet, IV fluids to be discontinued when tolerating oral diet without nausea and emesis
[2023-10-08] MEDS: ENOXAPARIN 40 MG/0.4 ML SYRINGE SUBQ SCH (15:55)
[2023-10-08] MEDS ORDERED: SODIUM CHLORIDE 0.9% 250 ML IV ONE (16:00)
[2023-10-08] MEDS: oxyCODONE 5 MG TABLET PO SCH ×2 (18:15→23:31)
[2023-10-08] MEDS: traMADol 50 MG TABLET PO SCH ×2 (18:16→23:32)
[2023-10-08] MEDS: SODIUM CHLORIDE 0.9% 1,000 ML IV SCH (18:18)
[2023-10-08] MEDS: DOCUSATE SODIUM 100 MG CAPSULE PO SCH (20:39)
[2023-10-08] MEDS ORDERED: LEVOTHYROXINE 100 MCG TABLET PO SCH (21:00)
[2023-10-09] MEDS: SODIUM CHLORIDE FLUSH 0.9% 10 ML SYRINGE IVP SCH ×2 (01:52→09:11)
[2023-10-09] MEDS: ACETAMINOPHEN 500 MG TABLET PO SCH ×2 (03:53→10:18)
[2023-10-09 05:41] LABS: BASOPHILS % (AUTO) 0.1 %; HCT - HEMATOCRIT 32.6 % (37.0-47.0); HGB - HEMOGLOBIN 10.3 g/dL (12.0-16.0); LYMPHOCYTES # (AUTO) 0.5 10^3/uL (1.5-3.5); LYMPHOCYTES % (AUTO) 4.1 %; MEAN CORPUSCULAR HEMOGLOBIN 31.1 pg (27.0-31.0); MEAN CORPUSCULAR HGB CONC 31.6 g/dL (32.0-36.0); MEAN CORPUSCULAR VOLUME 98.5 fL (81.0-99.0); MEAN PLATELET VOLUME 12.9 fL (7.9-10.8); MONOCYTES # (AUTO) 0.5 10^3/uL (0.0-1.0); MONOCYTES % (AUTO) 3.9 %; NEUTROPHILS % (AUTO) 91.4 %; PLT - PLATELET COUNT 157 10^3/uL (130-450); RED BLOOD COUNT 3.31 10^6/uL (4.20-5.40); RED CELL DISTRIBUTION WIDTH 13.8 % (12.0-15.0); WHITE BLOOD COUNT 12.1 x10^3/uL (4.8-10.8)
[2023-10-09] MEDS: oxyCODONE 5 MG TABLET PO SCH ×2 (07:00→12:21)
[2023-10-09] MEDS: traMADol 50 MG TABLET PO SCH ×2 (07:00→12:20)
[2023-10-09] MEDS: SODIUM CHLORIDE 0.9% 1,000 ML IV SCH (07:01)
[2023-10-09 08:08] VITALS: O2SAT 96
[2023-10-09] MEDS ORDERED: SODIUM CHLORIDE 0.9% 250 ML IV ONE (09:00)
[2023-10-09] MEDS: DOCUSATE SODIUM 100 MG CAPSULE PO SCH (09:10)
[2023-10-09] MEDS: METOPROLOL SUCCINATE 50 MG TABLET PO SCH (09:10)
[2023-10-09] MEDS: CELECOXIB 100 MG CAPSULE PO SCH (09:10)
[2023-10-09] MEDS: ethyl alcohoL 62% SWAB AMPULE NAS SCH (09:11)
[2023-10-09] MEDS: FLUTICASONE NASAL SPRAY NAS SCH (10:19)
--- NOTE | 2023-10-09 11:30 | PROVIDER PROGRESS NOTE ---
Subjective - General Admit Date: 10/08/23 Procedure Date: 10/07/23 Post Op Days: 2 Procedure Performed: Right total hip arthroplasty - Review of Systems Wound/Incisions: positive: Healing well, Dressing dry and intact General: positive: No symptoms Musculoskeletal: positive: Joint pain Psychiatric: positive: No symptoms - Other Other Information/Narrative: The patient is in good spirits today. She is alert. She is ambulated to the bathroom without difficulty. Her pain control is improving. Her ability to stand and walk has improved overnight. She did not feel faint when she got up today. Objective - Patient Data Vital Signs: Vital Signs x48h Temp Pulse Resp BP Pulse Ox 10/09/23 08:00 36.6 C 72 16 111/63 96 10/09/23 04:11 36.5 C 73 20 105/57 L 98 Weight: Weight 10/07/23 10/08/23 10/09/23 23:59 23:59 23:59 Weight (kg) 81.2 kg Intake & Output: Intake and Output Totals x24h 10/07/23 10/08/23 10/09/23 23:59 23:59 23:59 Intake Total 1650 3275 2140 Output Total 250 1700 Balance 1400 1575 2140 - Lab Results Lab Results: 10/09/23 05:26 Other Lab Results: Lab Results x24hrs 10/09/23 Range/Units 05:26 WBC 12.1 H (4.8-10.8) x10^3/uL RBC 3.31 L (4.20-5.40) 10^6/uL Hgb 10.3 L (12.0-16.0) g/dL Hct 32.6 L (37.0-47.0) % MCV 98.5 (81.0-99.0) fL MCH 31.1 H (27.0-31.0) pg MCHC 31.6 L (32.0-36.0) g/dL RDW 13.8 (12.0-15.0) % Plt Count 157 (130-450) 10^3/uL MPV 12.9 H (7.9-10.8) fL Neut # (Auto) 11.0 H (1.5-6.6) 10^3/uL Lymph # (Auto) 0.5 L (1.5-3.5) 10^3/uL [place] # (Auto) 0.5 (0.0-1.0) 10^3/uL Eos # (Auto) 0.0 (0.0-0.7) 10^3/uL Baso # (Auto) 0.0 (0.0-0.1) 10^3/uL Absolute Nucleated RBC 0.00 x10^3/uL Nucleated RBC % 0.0 /100WBC - Current Medications Current Medications: Current Medications Generic Name Dose Route Start Last Admin Trade Name Lazara PRN Reason Stop Dose Admin Acetaminophen 1,000 mg 10/07/23 16:00 10/09/23 10:18 Acetaminophen 500 Mg Tablet PO 1,000 mg Q6H WILEY Administration Alcohol 1 amp 10/07/23 21:00 10/09/23 09:11 Ethyl Alcohol 62% Swab Ampule CHERYL 1 amp BID WILEY Administration Celecoxib 200 mg 10/07/23 21:00 10/09/23 09:10 Celecoxib 100 Mg Capsule PO 200 mg BID WILEY Administration Docusate Sodium 100 mg 10/08/23 21:00 10/09/23 09:10 Docusate Sodium 100 Mg Capsule PO 100 mg BID WILEY Administration Enoxaparin Sodium 40 mg 10/07/23 16:00 10/08/23 15:55 Enoxaparin 40 Mg/0.4 Ml Syringe SUBQ 40 mg Q24H WILEY Administration Fluticasone Propionate 2 sprays 10/08/23 09:00 10/09/23 10:19 Fluticasone Nasal [place] CHERYL 2 sprays DAILY WILEY Administration Sodium Chloride 1,000 mls @ 83.333 mls/hr 10/08/23 18:00 10/09/23 07:01 Normal Saline 0.9% IV 83.333 mls/hr .Q12H WILEY Administration Levothyroxine Sodium 200 mcg 10/08/23 21:00 10/08/23 20:39 Levothyroxine 100 Mcg Tablet PO 200 mcg MOTUTHFRSA@2100 WILEY Administration Metoprolol Succinate 50 mg 10/07/23 21:00 10/09/23 09:10 Metoprolol Succinate 50 Mg Tablet PO 50 mg BID WILEY Administration Oxycodone HCl 5 mg 10/08/23 18:00 10/09/23 07:00 Oxycodone 5 Mg Tablet PO 5 mg Q6HR WILEY Administration Sodium Chloride 10 ml 10/07/23 17:00 10/09/23 09:11 Sodium Chloride Flush 0.9% 10 Ml Syringe IVP 10 ml 0100,0900,1700 IWLEY Administration Tramadol HCl 50 mg 10/08/23 18:00 10/09/23 07:00 Tramadol 50 Mg Tablet PO 50 mg Q6HR WILEY Administration - Physical Exam Wound/Incisions: positive: Healing well, Dressing dry and intact, No drainage Neurologic/Psychiatric: positive: Oriented x3, Motor nml, Sensation nml Comments/Other: She is doing much better today. Her orthostatic hypotension seems to have markedly improved. Her ability to stand and walk is much improved Impression/Plan - Problem List Problem List: Status post right total hip replacement, improved since yesterday Her vital signs are stable. Her pain control is acceptable. She is not having nausea or vomiting, tolerating diet and is voiding. She has met her physical therapy goals for discharge. The plan is for discharge from observation directly to home. She has been joint camp and understands the discharge instructions for pain, dressing, ambulation, diet and deep venous thrombosis prophylaxis. She can have a regular diet, pain management per joint camp which includes Tylen ol, ibuprofen, tramadol and oxycodone for breakthrough pain. Can resume anticoagulation for deep venous thrombosis prophylaxis as well as instructed. She is ambulate, weightbearing as tolerated right leg using a walker all the time for ambulation to prevent fall. She has a return appointment to her office on 10/12/2023. She may shower with the dressing in place. She is avoid crossing her legs. In addition to the pain medication, she will resume her preoperative home medications
[2023-10-09] MEDS ORDERED: SPIRONOLACTONE 25 MG TABLET PO SCH (13:00)
[2023-10-09 13:58] VITALS: BP 112/61
[2023-10-09] MEDS ORDERED: RIVAROXABAN 10 MG PO SCH (17:00)
[2023-10-09] MEDS ORDERED: METRONIDAZOLE 1% TOP SCH (21:00)
[2023-10-09] MEDS ORDERED: LYSINE 500 MG PO SCH (21:00)
[2023-10-10] MEDS ORDERED: [UNRECOGNIZED DRUG - OTHER] PO SCH (09:00)
[2023-10-10] MEDS ORDERED: NON FORMULARY MED (Rosuvastatin Calcium [Crestor] 10 MG Tablet) PO SCH (09:00)
[2023-10-10] MEDS ORDERED: NON FORMULARY MED (Multivitamin [Multivitamin] 1 EACH Tablet) PO SCH (09:00)
[2023-10-11] MEDS ORDERED: LEVOTHYROXINE 100 MCG TABLET PO SCH (21:00)
== END 2023-10-09 13:50 | disposition home health service (06) ==
LOC: SDS 09:39 → MS2 17:14 → UNDOFXSDCACCOM 10-08 16:40 → UNDOFXSDCRRACCOM 10-08 16:40 → UNDOFXSDCSVC 10-08 16:40 → SDS 10-08 18:54
PROVIDERS: ADMIT Physician Assistant Surgical; ATTEND Orthopaedic Surgery
DX: M16.0 Bilateral primary osteoarthritis of hip (principal); E11.22 Type 2 diabetes mellitus with diabetic chronic kidney disease; N18.9 Chronic kidney disease, unspecified; I48.91 Unspecified atrial fibrillation; I13.0 Hypertensive heart and chronic kidney disease with heart failure and stage 1 through stage 4 chronic kidney disease, or unspecified chronic kidney disease; I50.9 Heart failure, unspecified; I95.1 Orthostatic hypotension; Z79.01 Long term (current) use of anticoagulants; Z79.899 Other long term (current) drug therapy; Z86.73 Personal history of transient ischemic attack (TIA), and cerebral infarction without residual deficits; Z95.810 Presence of automatic (implantable) cardiac defibrillator
CPT/HCPCS: 27130; 36415; 73501; 85025; 97162; 97164; 97166; 97168; 97530; A9270; C1713; C1776; G0378; J1650; J2372; J2795; J3010; J3370; J7120; J8540

== ENCOUNTER 2023-10-15 14:42 | Outpatient (CLI) | payer MEDICARE, OTHER | END 2023-10-15 14:43 | disposition critical access hospital (66) | LOC: EMS 14:42 | DX: R03.1 Nonspecific low blood-pressure reading (principal); R53.1 Weakness; R42 Dizziness and giddiness; Z95.0 Presence of cardiac pacemaker | CPT/HCPCS: A0425; A0427 ==

== ENCOUNTER 2023-10-15 15:04 | Observation (INO) | payer MEDICARE, OTHER ==
--- NOTE | 2023-10-15 15:13 | ED Physician Documentation ---
History of Present Illness - Stated complaint Stated Complaint: GENERAL WEAKNESS - History obtained from History obtained from: Patient, EMS - Additonal information Additional information: 83-year-old woman with history of A-fib on Xarelto, pacemaker in place had her right hip replaced about a week ago. She was doing okay until today but today feels generally weak and more short of breath than normal. Blood pressures at home with a home cuff were in the 70/50 range, in the 90/60 range for EMS. Hip pain is well-controlled. She denies chest pain. She is having pedal edema on both sides. She was off her Xarelto for only about 4 - 5 days perioperatively. PD PAST MEDICAL HISTORY - Past Medical History Cardiovascular: Hypertension, High cholesterol, Angina, Atrial flutter, Atrial fibrillation, Murmur, Arrhythmia Respiratory: None Neuro: None Endocrine/Autoimmune: Type 2 diabetes, HyPOthyroidism GI: None SOCIAL ECONOMIST: Ovarian cysts : Renal insuffiency HEENT: Chronic vision loss Psych: None Musculoskeletal: Osteoarthritis Derm: None - Past Surgical History Past Surgical History: Yes General: Cholecystectomy, Colonoscopy Ortho: Other /SOCIAL ECONOMIST: Tubal ligation Cardiovascular: Pacemaker, AICD HEENT: Cataracts Derm: Skin grafts - Present Medications Home Medications: Ambulatory Orders Medication Instructions Recorded Confirmed Furosemide [Lasix] 20 - 40 mg PO DAILY PRN MDD 40MG 02/07/15 10/07/23 Lysine [l-Lysine] 500 mg PO QPM 03/11/15 10/07/23 Metoprolol Succinate 50 mg PO BID 06/25/17 10/07/23 Rivaroxaban [Xarelto] 15 mg PO QDDINNER 06/25/17 10/07/23 Levothyroxine Sodium 200 mcg PO MOTUTHFRSA@209909/09/18 10/07/23 Levothyroxine Sodium 400 mcg PO SUWE@209909/09/18 10/07/23 Echinacea Purpurea Aerial Ext 65 mg PO DAILY 10/01/23 10/07/23 [Echinacea] Fluticasone [Flonase] 2 sprays CHERYL DAILY 10/01/23 10/07/23 Metronidazole 1% Gel [Metrogel] 1 applic TOP BID 10/01/23 10/01/23 Multivitamin 1 each PO DAILY 10/01/23 10/07/23 Rosuvastatin Calcium [Crestor] 10 mg PO DAILY 10/01/23 10/07/23 Spironolactone [Aldactone] 25 mg PO Q48H 10/01/23 10/08/23 Valsartan [Diovan] 40 mg PO DAILY 10/01/23 10/07/23 - Allergies Allergies/Adverse Reactions: Allergies Allergy/AdvReac Type Severity Reaction Status Date / Time No Known Drug Allergies Allergy Verified 03/23/23 20:19 - Social History Does the pt smoke?: No Smoking Status: Never smoker Does the pt drink ETOH?: No Does the pt have substance abuse?: No - Immunizations Immunizations are current?: Yes - POLST Patient has POLST: No POLST Status: Full Code PD ED PE NORMAL - Vitals Vital signs reviewed: Yes - General General: Alert and oriented X 3, Other (Mildly pale) - HEENT HEENT: PERRL, EOMI - Neck Neck: Supple, no meningeal sign, No bony TTP - Cardiac Cardiac: RRR, No murmur - Respiratory Respiratory: No respiratory distress, Clear bilaterally - Abdomen Abdomen: Non tender - Back Back: No CVA TTP, No spinal TTP - Derm Derm: Normal color, Warm and dry - Extremities Extremities: Other (She does have significant pedal edema on both sides and a lot of bruising in the right leg.) - Neuro Neuro: Alert and oriented X 3, Normal speech Results - Vitals Vitals: Vital Signs - 24 hr 10/15/23 10/15/23 15:12 17:39 Temperature 36.2 C L Heart Rate 70 70 Respiratory 18 18 Rate Blood Pressure 117/62 133/66 H O2 Saturation 97 100 Oxygen O2 Source Room air - EKG (time done) 1536 EKG releavant findings:: EKG personally interpreted by author of this note. Relevant findings are: Rate: Rate (enter#) (70) Rhythm: Other (Underlying A-fib/flutter with ventricular paced rhythm) - Labs Labs: Laboratory Tests 10/15/23 10/15/23 10/15/23 15:35 15:35 15:35 WBC 9.9 RBC 2.61 L Hgb 8.1 L Hct 25.4 L MCV 97.3 MCH 31.0 MCHC 31.9 L RDW 14.4 Plt Count 258 MPV 11.5 H Neut # (Auto) 8.3 H Lymph # (Auto) 0.6 L [place] # (Auto) 0.5 Eos # (Auto) 0.2 Baso # (Auto) 0.1 Absolute Nucleated RBC 0.04 Nucleated RBC % 0.4 Sodium 132 L Potassium 6.0 H* Chloride 97 L Carbon Dioxide 30 Anion Gap 5.0 L BUN 43 H Creatinine 1.5 H Estimated GFR (MDRD) 33 L Glucose 307 H Calcium 9.2 Total Bilirubin 1.0 AST 19 ALT 9 L Alkaline Phosphatase 49 Troponin I High Sens 13.9 B-Natriuretic Peptide 275 H Total Protein 5.2 L Albumin 3.0 L Globulin 2.2 Albumin/Globulin Ratio 1.4 Blood Type Blood Type Recheck Antibody Screen 10/15/23 10/15/23 15:35 17:16 WBC RBC Hgb Hct MCV MCH MCHC RDW Plt Count MPV Neut # (Auto) Lymph # (Auto) Lawrence # (Auto) Eos # (Auto) Baso # (Auto) Absolute Nucleated RBC Nucleated RBC % Sodium Potassium Chloride Carbon Dioxide Anion Gap BUN Creatinine Estimated GFR (MDRD) Glucose Calcium Total Bilirubin AST ALT Alkaline Phosphatase Troponin I High Sens B-Natriuretic Peptide Total Protein Albumin Globulin Albumin/Globulin Ratio Blood Type A POSITIVE Blood Type Recheck A POSITIVE Antibody Screen NEGATIVE - Rads (name of study) CT angiography of the chest showing pulmonary hypertension but no PE or infiltrate. Relevant Findings:: Final report received, EMP independent interpretation of test PD Medical Decision Making - ED course ED course: 83-year-old woman who is generally weak about a week after hip replacement. She does not appear to be in CHF but we will check some cardiac labs given her history of same. Could be blood loss perioperatively? Will check CBC. Her right leg is fairly bruised up. Pulmonary embolism is a question being postop and short of breath. Also with hypotension. Does not have chest pain and was only off of Xarelto for about 4 days but will check CT angiography. CBC showing postoperative anemia with hemoglobin of 8.1, about a 2 point drop of the last 2 days. CMP notable for acute on chronic renal insufficiency with more prerenal azotemia and hyperkalemia than is her usual. Her BNP is only mode stly elevated to 75. As such we will give her some IV fluids for the hyperkalemia and prerenal azotemia. Also some Lokelma. I discussed the case with Dr Golden who will see the patient but does not feel there is anything surgical. I presented the case to Dr. De La Cruz at 5 PM, but she notes that CTA is pending and she may need transfer if her CTA is positive. CT resulted after shift change and telehealth consultation placed at 7:15 PM for admission. The CTA was negative. Except for pulmonary hypertension. Spoke with Dr Darby telehealth hospitalist at 1953 for admit. Departure - Departure Disposition: 66 [facility] DC/Xfer Clinical Impression: Postoperative anemia, Anticoagulation adequate, Dyspnea, Hyperkalemia Condition: Stable Forms: PCP List
[2023-10-15 15:38] LABS: BASOPHILS # (AUTO) 0.1 10^3/uL (0.0-0.1); BASOPHILS % (AUTO) 0.7 %; EOSINOPHILS # (AUTO) 0.2 10^3/uL (0.0-0.7); EOSINOPHILS % (AUTO) 2.4 %; HCT - HEMATOCRIT 25.4 % (37.0-47.0); HGB - HEMOGLOBIN 8.1 g/dL (12.0-16.0); LYMPHOCYTES # (AUTO) 0.6 10^3/uL (1.5-3.5); MEAN CORPUSCULAR HGB CONC 31.9 g/dL (32.0-36.0); MEAN CORPUSCULAR VOLUME 97.3 fL (81.0-99.0); MEAN PLATELET VOLUME 11.5 fL (7.9-10.8); MONOCYTES # (AUTO) 0.5 10^3/uL (0.0-1.0); NEUTROPHILS # (AUTO) 8.3 10^3/uL (1.5-6.6); NEUTROPHILS % (AUTO) 84.4 %; NRBC ABSOLUTE COUNT (AUTO) 0.04 x10^3/uL; NUCLEATED RED BLOOD CELLS AUTO 0.4 /100WBC; PLT - PLATELET COUNT 258 10^3/uL (130-450); RED BLOOD COUNT 2.61 10^6/uL (4.20-5.40); RED CELL DISTRIBUTION WIDTH 14.4 % (12.0-15.0); WHITE BLOOD COUNT 9.9 x10^3/uL (4.8-10.8)
[2023-10-15 16:23] LABS: TROPONIN I HIGH SENSITIVITY 13.9 ng/L (2.3-14.8)
[2023-10-15 16:33] LABS: ALBUMIN/GLOBULIN RATIO 1.4 (1.0-2.2); CALCIUM 9.2 mg/dL (8.5-10.3); CREATININE 1.5 mg/dL (0.6-1.3); TOTAL PROTEIN 5.2 g/dL (6.4-8.9)
[2023-10-15] MEDS ORDERED: SODIUM CHLORIDE 0.9% 1,000 ML IV STA (16:38)
[2023-10-15] MEDS ORDERED: SODIUM ZIRCONIUM CYCLOSILICATE 5 GM PACKET PO STA (16:39)
[2023-10-15] MEDS ORDERED: iohexoL-300 100 ML VIAL IVP ONE (17:21)
--- NOTE | 2023-10-15 17:39 | CT Report ---
PROCEDURE: ANGIO CHEST W/WO INDICATIONS: dyspnea, post op, pe protocol CONTRAST: 80ml omni 300 TECHNIQUE: After the administration of intravenous contrast, 2 mm axial images were acquired from the pulmonary apices to the posterior costophrenic angles during the arterial phase. In addition, 1 mm lung kernel and 5 mm soft tissue kernel reconstructions were performed. 3-dimensional coronal oblique maximum int ensity projection (MIP) reformats, 8 mm axial MIP, and 5 mm coronal and sagittal MPR reformats were t hen performed through the thorax. For radiation dose reduction, the following was used: automated exp osure control, adjustment of mA and/or kV according to patient size. COMPARISON: Chest x-ray 03/23/2023 FINDINGS: Image quality: Excellent. Large vessels: No filling defects within the opacified pulmonary arteries, accounting for motion and contrast timing. Dilated main pulmonary artery. No evidence of acute aortic syndrome or aortic aneury sm. Lungs and pleura: No consolidation. No pleural effusions. No pneumothorax. No suspicious pulmonary n odules which require follow up. Mediastinum: Heart size is enlarged. Mild multivessel coronary artery calcifications. No pericardial effusion. No large vessel abnormality. Atherosclerotic vascular calcifications. No mediastinal adenop athy by size criteria. Chest wall and lower neck: Thyroid is unremarkable. No axillary or supraclavicular adenopathy by size . Left chest wall pacemaker. Bones: No aggressive osseous abnormality. Upper Abdomen: Status post cholecystectomy IMPRESSION: 1.No pulmonary embolus. 2.No focal pulmonary consolidations. 3.Dilated main pulmonary artery, suggestive of pulmonary hypertension. Reviewed by: Federico Emmanuel MD on 10/15/2023 5:38 PM PST Approved by: Federico Emmanuel MD on 10/15/2023 5:38 PM PST Station ID: [id number]
[2023-10-15] MEDS ORDERED: FUROSEMIDE 20 MG TABLET PO PRN (21:19)
[2023-10-15] MEDS ORDERED: ACETAMINOPHEN 325 MG TABLET PO PRN (21:28)
[2023-10-15] MEDS ORDERED: ONDANSETRON ODT 4 MG TABLET TL PRN (21:28)
[2023-10-15] MEDS ORDERED: SODIUM CHLORIDE FLUSH 0.9% 10 ML SYRINGE IVP PRN (21:28)
[2023-10-15] MEDS ORDERED: traMADol 50 MG TABLET PO PRN (21:39)
[2023-10-15] MEDS ORDERED: oxyCODONE 5 MG TABLET PO PRN (21:40)
[2023-10-15] MEDS ORDERED: SPIRONOLACTONE 25 MG TABLET PO SCH (22:00)
[2023-10-15] MEDS: LACTATED RINGERS 1,000 ML IV SCH (22:39)
--- NOTE | 2023-10-16 02:15 | HISTORY & PHYSICAL EXAMINATION ---
Chief Complaint - Chief Complaint Chief Complaint: R hip pain, bruising, weakness History of Present Illness - History of Present Illness HPI Comment/Other: pt s/p R hip surgery about 1 week ago, c/o progressively worsening pain, swelling and bruising along with generalized weakness and decreased PO intake. denies any falls or trauma, or any blood in urine or stool. no chest pain. also has had episodes of sob. History - Past Medical History Cardiovascular: reports: Hypertension, High cholesterol, Angina, Atrial flutter, Atrial fibrillation, Murmur, Arrhythmia Respiratory: reports: None Neuro: reports: None Endocrine/Autoimmune: reports: Type 2 diabetes, HyPOthyroidism GI: reports: None HEAD OF RESEARCH & INSIGHTS: reports: Ovarian cysts : reports: Renal insuffiency HEENT: reports: Chronic vision loss Psych: reports: None Musculoskeletal: reports: Osteoarthritis Derm: reports: None MRSA Hx?: No - Past Surgical History General: reports: Cholecystectomy, Colonoscopy Ortho: reports: Other /HEAD OF RESEARCH & INSIGHTS: reports: Tubal ligation Cardiovascular: reports: Pacemaker, AICD HEENT: reports: Cataracts Derm: reports: Skin grafts - Family & Social History Family History: Mother: , Cancer, Father: , Cancer, [place], Sister: , Cancer, Brother: , Cancer Social History Notes: The patient lives alone in [place] she is fully independent and is able to perform all her activities of daily living without assistance. She has a cat named Navya and her daughter, Cecilia lives nearby and is her #1 support. The patient does not use any assistive devices for ambulation. The patient is still fairly active. She is her over 20 years ago. 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 Patient has 1 daughter who lives nearby and [place]. She has a grandson. She is originally from [place]. The patient is a former smoker but only smoked briefly in her teenage years and quit has never smoked since. She occasionally drinks a glass of wine. She denies any illicit drug use. She wishes to be a FULL code. - Substance History Use: Uses substance without health or social issues: NONE - POLST Patient has POLST: No POLST Status: Full Code Meds/Allgy - Home Medications Home Medications: Ambulatory Orders Medication Instructions Recorded Confirmed Furosemide [Lasix] 20 - 40 mg PO DAILY PRN MDD 40MG 02/07/15 10/07/23 Lysine [l-Lysine] 500 mg PO QPM 03/11/15 10/07/23 Metoprolol Succinate 50 mg PO BID 06/25/17 10/07/23 Rivaroxaban [Xarelto] 15 mg PO QDDINNER 06/25/17 10/07/23 Levothyroxine Sodium 200 mcg PO MOTUTHFRSA@2100 09/09/18 10/07/23 Levothyroxine Sodium 400 mcg PO SUWE@2100 09/09/18 10/07/23 Echinacea Purpurea Aerial Ext 65 mg PO DAILY 10/01/23 10/07/23 [Echinacea] Fluticasone [Flonase] 2 sprays CHERYL DAILY 10/01/23 10/07/23 Metronidazole 1% Gel [Metrogel] 1 applic TOP BID 10/01/23 10/01/23 Multivitamin 1 each PO DAILY 10/01/23 10/07/23 Rosuvastatin Calcium [Crestor] 10 mg PO DAILY 10/01/23 10/07/23 Spironolactone [Aldactone] 25 mg PO Q48H 10/01/23 10/08/23 Valsartan [Diovan] 40 mg PO DAILY 10/01/23 10/07/23 - Allergies Allergies/Adverse Reactions: Allergies Allergy/AdvReac Type Severity Reaction Status Date / Time No Known Drug Allergies Allergy Verified 03/23/23 20:19 Review of Systems - Other Findings Other Findings: 14 pt review done with positives per hpi; all others reviewed as negative Exam - Vital Signs Vital Signs: Vital Signs x48h Temp Pulse Pulse Resp BP BP Pulse Ox 10/15/23 23:41 36.8 C 70 16 112/52 L 97 10/15/23 21:30 70 16 131/79 H 99 10/15/23 21:00 70 11 L 126/68 99 10/15/23 19:00 70 14 144/83 H 99 - Physical Exam Comments/Other: gen - aaox3, nad, polite heent - eomi, nc/at heart - rrr lungs - ctab abd - soft, nt msk - RLE edema + ecchymoses noted Conclusion/Plan - Lab Results Fish Bones: 10/15/23 15:35 10/15/23 15:35 - Other Other Results/Comments: pt with - - blood loss anemia s/p R hip surgery orthopedics on case, with no surgical interventions needed no transfusion at this time hold anticoagulation trend h/h - reji in setting of above + pre-renal azotemia continue ivf, check renal sono - hyperkalemia in setting of above + dehydration hyperK protocol initiated in ED, f/u electrolytes spironolactone held\ - sob d/t above no chest pain o2 sat wnl on ra - generalized weakness d/t above supportive measures
[2023-10-16] MEDS: LACTATED RINGERS 1,000 ML IV SCH ×2 (06:24→15:03)
[2023-10-16 06:38] LABS: BASOPHILS # (AUTO) 0.1 10^3/uL (0.0-0.1); BASOPHILS % (AUTO) 0.9 %; EOSINOPHILS # (AUTO) 0.4 10^3/uL (0.0-0.7); EOSINOPHILS % (AUTO) 4.3 %; HCT - HEMATOCRIT 23.9 % (37.0-47.0); HGB - HEMOGLOBIN 7.6 g/dL (12.0-16.0); LYMPHOCYTES # (AUTO) 1.3 10^3/uL (1.5-3.5); LYMPHOCYTES % (AUTO) 13.4 %; MEAN CORPUSCULAR HEMOGLOBIN 30.9 pg (27.0-31.0); MEAN CORPUSCULAR HGB CONC 31.8 g/dL (32.0-36.0); MEAN CORPUSCULAR VOLUME 97.2 fL (81.0-99.0); MEAN PLATELET VOLUME 11.3 fL (7.9-10.8); MONOCYTES # (AUTO) 0.6 10^3/uL (0.0-1.0); MONOCYTES % (AUTO) 5.9 %; NEUTROPHILS # (AUTO) 6.9 10^3/uL (1.5-6.6); NEUTROPHILS % (AUTO) 74.3 %; NRBC ABSOLUTE COUNT (AUTO) 0.02 x10^3/uL; NUCLEATED RED BLOOD CELLS AUTO 0.2 /100WBC; PLT - PLATELET COUNT 254 10^3/uL (130-450); RED BLOOD COUNT 2.46 10^6/uL (4.20-5.40); RED CELL DISTRIBUTION WIDTH 14.6 % (12.0-15.0); WHITE BLOOD COUNT 9.3 x10^3/uL (4.8-10.8)
[2023-10-16 06:47] LABS: ALBUMIN 2.9 g/dL (3.2-5.5); ALBUMIN/GLOBULIN RATIO 1.4 (1.0-2.2); BILIRUBIN,TOTAL 0.9 mg/dL (0.2-1.0); CREATININE 1.3 mg/dL (0.6-1.3); MAGNESIUM 1.7 mg/dL (1.7-2.3); POTASSIUM 4.9 mmol/L (3.5-4.5)
[2023-10-16 06:49] LABS: CHOL/HDL RATIO 2.9 (<4.4); CHOLESTEROL 119 mg/dL; HDL CHOLESTEROL 41 mg/dL; LDL CHOLESTEROL,CALCULATED 53 mg/dL; LDL/HDL RATIO 1.3 (<4.4); TRIGLYCERIDES 125 mg/dL (48-352); VLDL CHOLESTEROL 25 mg/dL
[2023-10-16 07:33] LABS: THYROID STIMULATING HORMONE 6.61 uIU/mL (0.34-5.60)
[2023-10-16] MEDS ORDERED: FLUTICASONE NASAL SPRAY NAS SCH (09:00)
[2023-10-16] MEDS ORDERED: ATORVASTATIN 10 MG TABLET PO SCH (09:00)
[2023-10-16] MEDS ORDERED: MULTIVITAMIN TABLET PO SCH (09:00)
[2023-10-16] MEDS ORDERED: LOSARTAN 50 MG TABLET PO SCH ×2 (09:00→11:32)
[2023-10-16] MEDS ORDERED: METOPROLOL SUCCINATE 50 MG TABLET PO SCH ×2 (09:00→11:32)
[2023-10-16] MEDS: SODIUM CHLORIDE FLUSH 0.9% 10 ML SYRINGE IVP SCH ×3 (09:05→16:17)
[2023-10-16] MEDS ORDERED: SODIUM CHLORIDE 0.9% 500 ML IV ONE ×2 (11:56→12:00)
--- NOTE | 2023-10-16 12:16 | CONSULTATION NOTE ---
Referring Provider Name of Referring Provider:: Dr Buck Consult Date: 10/16/23 Chief Complaint - Chief Complaint Chief Complaint: Feeling weak following hip replacement surgery History of Present Illness - History Obtained From Records Reviewed: Yes History obtained from: Patient Exam Limitations: Age - History of Present Illness HPI Comment/Other: This is an 83-year-old woman who underwent a total hip replacement to her right hip for osteoarthritis. She had some issues with orthostatic hypotension following surgery but this seemed to resolve. She has a history of cardiac issues and has seen cardiology prior to surgery. She has a history of atrial fibrillation, pacemaker, decreased ejection fraction. She was doing relatively well until yesterday when she came in feeling fatigue, low blood pressure at home and en route to the hospital by medical transport. She has noted swelling to her lower extremities, particular right side which is her operative site. She does report report pain to the right hip but it is not marked and it seems to be slightly better with time. She has been ambulating. She denies history of fall. She does not have history to suggest instability or dislocation to right hip. She does not have any neurologic symptoms to right lower extremity. She has noted some bruising about the incision but no drainage. She denies fever or chillsShe does not seem to be short of breath or having chest painShe has resumed her preoperative Xarelto. She is on 15 mg of Xarelto daily for atrial fibrillation. History - Past Medical History Cardiovascular: reports: Hypertension, High cholesterol, Angina, Atrial flutter, Atrial fibrillation, Murmur, Arrhythmia Respiratory: reports: None Neuro: reports: None Endocrine/Autoimmune: reports: Type 2 diabetes, HyPOthyroidism GI: reports: None HEALTH SCIENCE SPECIALIST: reports: Ovarian cysts : reports: Renal insuffiency HEENT: reports: Chronic vision loss Psych: reports: None Musculoskeletal: reports: Osteoarthritis Derm: reports: None MRSA Hx?: No - Past Surgical History General: reports: Cholecystectomy, Colonoscopy Ortho: reports: Other /HEALTH SCIENCE SPECIALIST: reports: Tubal ligation Cardiovascular: reports: Pacemaker, AICD HEENT: reports: Cataracts Derm: reports: Skin grafts - Family & Social History Family History: Mother: , Cancer, Father: , Cancer, [place], Sister: , Cancer, Brother: , Cancer Social History Notes: The patient lives alone in [place] she is fully independent and is able to perform all her activities of daily living without assistance. She has a cat named Navya and her daughter, Cecilia lives nearby and is her #1 support. The patient does not use any assistive devices for ambulation. The patient is still fairly active. She is her over 20 years ago. 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 Patient has 1 daughter who lives nearby and [place]. She has a grandson. She is originally from [place]. The patient is a former smoker but only smoked briefly in her teenage years and quit has never smoked since. She occasionally drinks a glass of wine. She denies any illicit drug use. She wishes to be a FULL code. - Substance History Use: Uses substance without health or social issues: NONE - POLST Patient has POLST: No POLST Status: Full Code Meds/Allgy - Home Medications Home Medications: Ambulatory Orders Medication Instructions Recorded Confirmed Furosemide [Lasix] 20 - 40 mg PO DAILY PRN MDD 40MG 02/07/15 10/07/23 Lysine [l-Lysine] 500 mg PO QPM 03/11/15 10/07/23 Metoprolol Succinate 50 mg PO BID 06/25/17 10/07/23 Rivaroxaban [Xarelto] 15 mg PO QDDINNER 06/25/17 10/07/23 Levothyroxine Sodium 200 mcg PO MOTUTHFRSA@209909/09/18 10/07/23 Levothyroxine Sodium 400 mcg PO SUWE@209909/09/18 10/07/23 Echinacea Purpurea Aerial Ext 65 mg PO DAILY 10/01/23 10/07/23 [Echinacea] Fluticasone [Flonase] 2 sprays CHERYL DAILY 10/01/23 10/07/23 Metronidazole 1% Gel [Metrogel] 1 applic TOP BID 10/01/23 10/01/23 Multivitamin 1 each PO DAILY 10/01/23 10/07/23 Rosuvastatin Calcium [Crestor] 10 mg PO DAILY 10/01/23 10/07/23 Spironolactone [Aldactone] 25 mg PO Q48H 10/01/23 10/08/23 Valsartan [Diovan] 40 mg PO DAILY 10/01/23 10/07/23 - Allergies Allergies/Adverse Reactions: Allergies Allergy/AdvReac Type Severity Reaction Status Date / Time No Known Drug Allergies Allergy Verified 03/23/23 20:19 Exam - Vital Signs Vital Signs: Vital Signs x48h Temp Pulse Resp BP Pulse Ox 10/16/23 08:00 36.6 C 70 18 112/50 L 98 - Physical Exam General Appearance: positive: Mild distress Neurologic/Psychiatric: positive: Oriented x3 Comments/Other: She seems to be comfortable, articulate. She reports very little pain at this time, lying in bed. Since admission, she is notes decreased swelling to right leg. The right hip incision is dry and intact. There is swelling to the right lower extremity and some to the left. The swelling is mostly to the thigh and lower extremity below knee. There is some ecchymosis about the thigh and lower extremity. Her neurovascular is intact to right lower extremity. She has minimal pain with hip motion.There is no deformity of the right leg. Conclusion and Plan - Lab Results Laboratory Results 10/16/23 06:27: Iron 83, TIBC 293, % Saturation 28, Transferrin 209, Free T4 Direct 1.19 10/16/23 06:27: Sodium 137, Potassium 4.9 H, Chloride 102, Carbon Dioxide 32, Anion Gap 3.0 L, BUN 33 H, Creatinine 1.3, Estimated GFR (MDRD) 39 L, Glucose 142 H, Calcium 9.0, Magnesium 1.7, Total Bilirubin 0.9, AST 16, ALT 8 L, Alkaline Phosphatase 45, Total Protein 5.0 L, Albumin 2.9 L, Globulin 2.1, Albumin/Globulin Ratio 1.4 10/16/23 06:27: WBC 9.3, RBC 2.46 L, Hgb 7.6 L, Hct 23.9 L, MCV 97.2, MCH 30.9, MCHC 31.8 L, RDW 14.6, Plt Count 254, MPV 11.3 H, Neut # (Auto) 6.9 H, Lymph # (Auto) 1.3 L, [place] # (Auto) 0.6, Eos # (Auto) 0.4, Baso # (Auto) 0.1, Absolute Nucleated RBC 0.02, Nucleated RBC % 0.2 10/16/23 06:27: Triglycerides 125, Cholesterol 119, LDL Cholesterol, Calc 53, VLDL Cholesterol 25, HDL Cholesterol 41 L, LDL/HDL Ratio 1.3, Cholesterol/HDL Ratio 2.9, TSH 6.61 H 10/15/23 17:16: Blood Type A POSITIVE, Antibody Screen NEGATIVE 10/15/23 15:35: Blood Type Recheck A POSITIVE 10/15/23 15:35: B-Natriuretic Peptide 275 H 10/15/23 15:35: Sodium 132 L, Potassium 6.0 H*, Chloride 97 L, Carbon Dioxide 30, Anion Gap 5.0 L, BUN 43 H, Creatinine 1.5 H, Estimated GFR (MDRD) 33 L, Glucose 307 H, Calcium 9.2, Total Bilirubin 1.0, AST 19, ALT 9 L, Alkaline Phosphatase 49, Troponin I High Sens 13.9, Total Protein 5.2 L, Albumin 3.0 L, Globulin 2.2, Albumin/Globulin Ratio 1.4 10/15/23 15:35: WBC 9.9, RBC 2.61 L, Hgb 8.1 L, Hct 25.4 L, MCV 97.3, MCH 31.0, MCHC 31.9 L, RDW 14.4, Plt Count 258, MPV 11.5 H, Neut # (Auto) 8.3 H, Lymph # (Auto) 0.6 L, [place] # (Auto) 0.5, Eos # (Auto) 0.2, Baso # (Auto) 0.1, Absolute Nucleated RBC 0.04, Nucleated RBC % 0.4 - Plan Plan: Status post right total hip arthroplasty I do not see any need for surgical intervention. I would stop the anticoagulation at this time as I suspect she has had some bleeding about the surgical site and thigh because of the Xarelto. She is on a higher dose for Xarelto with atrial fibrillation then the dose that is recommended for deep venous thrombosis prophylaxis. I suspect the additional bleeding has led to some hypovolemia, anemia and mild hypotension. These abnormalities seem to be improved this morning. She still has an anemia but I do not see any sign of active bleeding. She can resume activities as tolerated, weightbearing as tolerated with walker. I would hold anticoagulation until she is seen in the office next week. She does have a return appointment to our office in the orthopedic clinic next week.I discussed the case with our hospitalist who is currently providing medical support
[2023-10-16 12:24] LABS: ESTIMATED AVERAGE GLUCOSE 151 mg/dL (70-100); HEMOGLOBIN A1c% 6.9 % (4.27-6.07)
--- NOTE | 2023-10-16 17:15 | PHARMACY PROGRESS NOTE ---
- Best Possible Medication History Admit Date and Time: 10/15/232127 Processed by: Pharmacy Medication History completed: Yes Patient Interview: Completed Secondary Source(s): Insurance records As the person ultimately responsible for medication therapy, providers are able to order a medication from an existing home medication list in [facility] via the "Reconcile Routine" prior to Confirmation of that medication by community support worker. Such practice is discouraged except when the physician, in their clinical judgment, deems that a medical need exists for a medication without regard to previous use.
--- NOTE | 2023-10-16 17:21 | Discharge Plan ---
Discharge Plan Problem Reviewed?: Yes Disposition: Home, Self Care Condition: Fair Diet: Regular Activity Restrictions: Activity as Tolerated Shower Restrictions: No Driving Restrictions: Yes Assistance Devices: Walker Weight Bearing: Full Weight Health Concerns: Patient was brought in under Observation status to manage the large bruise of the right leg, which caused the drop in hemoglobin and the dropping blood pressure with standing. The blood thinner Xarelto was stopped. The hemoglobin has stopped dropping. The patient did not need a blood transfusion and is not iron deficient, on blood tests. The blood pressure is no longer dropping with standing, after patient received IV fluids including a bolus of fluid. The patient is being discharged home today. Nurse explained how to get lift assist into the house, for the daughter. Please resume the usual in-home physical therapy and in-home caregiving help. Please remain off the Xarelto today, Thursday and Thursday. The Xarelto may be restarted on Thursday10/19/23. Remember, Xarelto should be taken with the largest meal of the day which is usually at dinnertime. Please resume all other pre-hospital medications. Plan of Treatment: As above. Care Goals: Improvement in symptoms and stabilization of the goals. Assessment: The patient and daughter understand and are agreeable with the plan. Additional Instructions or Follow Up instructions: If the patient should have new or worsening symptoms, call the Primary Care Provider or the Orthopedic doctor for advice, or come to the ER. No Smoking: If you smoke, Please STOP! Call for help.
--- NOTE | 2023-10-16 17:29 | DISCHARGE SUMMARY ---
Discharge Summary Admit Date: 10/15/23 Discharge Date: 10/16/23 Discharging Provider: Dr Kaur De La Cruz Primary Care Provider: ROSALINA Negrete Code Status: Attempt Resuscitation Condition at Discharge: Fair Discharge Disposition: 01 Home, Self Care - HPI History of Present Illness: H&P of Telemedicine night doctor: pt s/p R hip surgery about 1 week ago, c/o progressively worsening pain, swelling and bruising along with generalized weakness and decreased PO intake. denies any falls or trauma, or any blood in urine or stool. no chest pain. also has had episodes of sob. Additional H&P: This patient has a history of cardiomyopathy, and underwent cardiology clearance before having the elective right hip surgery. Her Xarelto for A-fib, was stopped pre-op and started at the appropriate time after surgery. She did have significant orthostasis in the postop hospital stay. The patient was discharged home where she lives alone and has a home caregiver who stays overnight and gets home PT and OT. In the ER she had a "soft" BP, a large bruise down the lateral R leg to her calf, surgical site appeared good, Hgb 8 (1 week ago Hgb was 10). BUN 43/1.5, K 6, BNP 275, CTA (-) for a PE. Patient's Xarelto was stopped and she was placed in Observation to monitor her hemoglobin and orthostatic vital signs. - HOSPITAL COURSE Hospital Course: 1) Orthostatic hypotension Patient was very orthostatic. She was ordered to receive IV fluids at a very low rate because of the history of cardiomyopathy. She then got a saline bolus of 500 cc. By the afternoon of 10/16/2023 she was not orthostatic. She was abl e to be discharged home. 2) Blood loss anemia Hemoglobin was followed closely. The next hemoglobin was 7.6 then 7.7. She did not require a blood transfusion while here. Her iron panel was completely normal, thus she was not started on iron supplement while here. The post-op blood oozing, creating the leg bruise, had likely stopped once the Xarelto was discontinued. The patient was advised to remain off Xarelto for an additional 2 days, restart it on 10/19/23. 3) MARIA M With IV fluid hydration her BUN/creatinine improved to 33/1.3. At outpt F/U, please consider no diuretics for 5-7 days. 4) Cardiomyopathy The patient's medications were resumed slowly. She was OK'd to continue them after discharge as well. Her Lasix is ordered prn weight gain and Spironolactone is ordered QOD, but while the patient is anemic, she may not need either diuretic temporarily. 5) Afib Patient has a pacemaker therefore her palpated rhythm is regular. The Xarelto was on hold here, and could be restarted on 10/19/2023. 6) Status post right hip surgery Orthopedic surgeon looked at the wound site, which appeared clean and normal. The patient is to see Dr. Golden for her postop follow-up visit, which was already scheduled, and will be on 10/19/2023. - ALLERGIES Allergies/Adverse Reactions: Allergies Allergy/AdvReac Type Severity Reaction Status Date / Time No Known Drug Allergies Allergy Verified 03/23/23 20:19 - MEDICATIONS Home Medications: Ambulatory Orders Medication Instructions Recorded Confirmed Furosemide [Lasix] 20 - 40 mg PO DAILY PRN MDD 40MG 02/07/15 10/16/23 Lysine [l-Lysine] 500 mg PO QPM PRN 03/11/15 10/16/23 Metoprolol Succinate 50 mg PO BID 06/25/17 10/16/23 Levothyroxine Sodium 200 mcg PO MOTUWETHFRSA@209909/09/18 10/16/23 Levothyroxine Sodium 400 mcg PO MICHELE@2100 09/09/18 10/16/23 Echinacea Purpurea Aerial Ext 65 mg PO DAILY 10/01/23 10/16/23 [Echinacea] Fluticasone [Flonase] 2 sprays CHERYL DAILY 10/01/23 10/16/23 Metronidazole 1% Gel [Metrogel] 1 applic TOP BID PRN 10/01/23 10/16/23 Multivitamin 1 each PO DAILY 10/01/23 10/16/23 Rosuvastatin Calcium [Crestor] 10 mg PO DAILY 10/01/23 10/16/23 Spironolactone [Aldactone] 25 mg PO Q48H 10/01/23 10/16/23 Valsartan [Diovan] 40 mg PO DAILY 10/01/23 10/16/23 - PHYSICAL EXAM AT DISCHARGE General Appearance: positive: No acute distress, Alert Eyes Bilateral: positive: Normal inspection, EOMI ENT: positive: ENT inspection nml, No signs of dehydration Neck: positive: Nml inspection, No JVD Respiratory: positive: No respiratory distress, Breath sounds nml Cardiovascular: positive: No murmur Abdomen: positive: Non-tender, No distention Skin: positive: Warm, Dry Extremities: positive: No pedal edema, Other (Large purple bruise down the lateral R leg from hip to calf.) Neurologic/Psychiatric: positive: Oriented x3, CN's nml (2-12), Motor nml - LABS Result Diagrams: 10/16/23 14:52 10/16/23 06:27 - DIAGNOSTIC IMAGING Diagnostic Imaging Results: Final report reviewed - FOLLOW UP Follow Up: See Ortho and PCP for hospital F/U visit. - TIME SPENT Time Spent in Discharge (Minutes): 40
[2023-10-16 17:47] VITALS: BP 121/54; O2SAT 97
[2023-10-18] MEDS ORDERED: LEVOTHYROXINE 100 MCG TABLET PO SCH (21:00)
== END 2023-10-16 18:15 | disposition home or self-care (01) ==
LOC: EDUNIT# → ED 15:04 → MS2 21:28
PROVIDERS: ADMIT Student in an Organized Health Care Education/Training Program; ATTEND Internal Medicine
DX: D50.0 Iron deficiency anemia secondary to blood loss (chronic) (principal); I95.1 Orthostatic hypotension; S70.11XA Contusion of right thigh, initial encounter; X58.XXXA Exposure to other specified factors, initial encounter; N17.9 Acute kidney failure, unspecified; I42.9 Cardiomyopathy, unspecified; Z98.890 Other specified postprocedural states; I48.91 Unspecified atrial fibrillation; Z79.01 Long term (current) use of anticoagulants; E11.9 Type 2 diabetes mellitus without complications; E03.9 Hypothyroidism, unspecified; I10 Essential (primary) hypertension; Z95.0 Presence of cardiac pacemaker; Z87.891 Personal history of nicotine dependence; E87.5 Hyperkalemia; E86.0 Dehydration; R60.0 Localized edema
CPT/HCPCS: 36415; 71275; 80053; 80061; 83036; 83540; 83735; 83880; 84439; 84443; 84466; 84484; 85018; 85025; 86850; 86900; 86901; 93005; 96360; 97162; 97166; 99285; A9270; G0378; J7120; Q9967; 83721; 85014

== ENCOUNTER 2023-10-23 19:39 | Outpatient (CLI) | payer MEDICARE, OTHER ==
--- NOTE | 2023-10-24 08:42 | Ultrasound Report ---
PROCEDURE: Duplex Ext Veins Right INDICATIONS: RIGHT LEG EDEMA TECHNIQUE: Real-time imaging, as well as color and pulse Doppler interrogation, were performed of the lower extr emity deep veins from the inguinal ligament to the popliteal fossa. Attempted visualization of the ca lf veins was performed. COMPARISON: None. FINDINGS: The deep veins are normally compressible, and free of intraluminal thrombus. Color and pu lse Doppler demonstrate normal phasic intraluminal flow. There is normal augmentation response to di stal compression maneuver. These findings are best seen from the groin to the thigh. Due to body hab itus, mobility limitations, and surgical changes, the popliteal vein and distal veins were not evalua doni. IMPRESSION: No DVT identified from the groin to the thigh. Unable to evaluate from the popliteal vein and more distal veins. Reviewed by: Dakota Lainez MD on 10/24/2023 8:41 AM PST Approved by: Dakota Lainez MD on 10/24/2023 8:41 AM PST Station ID: [id number]
== END 2023-10-23 19:40 | disposition home or self-care (01) ==
LOC: DI 19:39
PROVIDERS: ATTEND Physician Assistant Medical
DX: R60.0 Localized edema (principal); E11.9 Type 2 diabetes mellitus without complications; N28.9 Disorder of kidney and ureter, unspecified; D64.9 Anemia, unspecified
CPT/HCPCS: 36415; 80053; 82728; 83036; 83540; 84466; 85025

== ENCOUNTER 2023-10-23 19:46 | Outpatient (CLI) | payer MEDICARE, OTHER ==
[2023-10-23 20:15] LABS: BASOPHILS # (AUTO) 0.1 10^3/uL (0.0-0.1); BASOPHILS % (AUTO) 1.2 %; EOSINOPHILS # (AUTO) 0.4 10^3/uL (0.0-0.7); HCT - HEMATOCRIT 30.3 % (37.0-47.0); HGB - HEMOGLOBIN 9.3 g/dL (12.0-16.0); LYMPHOCYTES # (AUTO) 1.2 10^3/uL (1.5-3.5); LYMPHOCYTES % (AUTO) 9.8 %; MEAN CORPUSCULAR HGB CONC 30.7 g/dL (32.0-36.0); MEAN CORPUSCULAR VOLUME 104.1 fL (81.0-99.0); MEAN PLATELET VOLUME 10.2 fL (7.9-10.8); MONOCYTES # (AUTO) 0.5 10^3/uL (0.0-1.0); MONOCYTES % (AUTO) 4.1 %; NEUTROPHILS # (AUTO) 9.5 10^3/uL (1.5-6.6); NEUTROPHILS % (AUTO) 81.4 %; PLT - PLATELET COUNT 329 10^3/uL (130-450); RED BLOOD COUNT 2.91 10^6/uL (4.20-5.40); RED CELL DISTRIBUTION WIDTH 19.5 % (12.0-15.0); WHITE BLOOD COUNT 11.7 x10^3/uL (4.8-10.8)
[2023-10-23 20:44] LABS: ALBUMIN 3.7 g/dL (3.2-5.5)
[2023-10-23 21:02] LABS: ALBUMIN/GLOBULIN RATIO 1.5 (1.0-2.2); BILIRUBIN,TOTAL 0.8 mg/dL (0.2-1.0); CALCIUM 9.4 mg/dL (8.5-10.3); CREATININE 1.3 mg/dL (0.6-1.3); POTASSIUM 4.2 mmol/L (3.5-4.5); TOTAL PROTEIN 6.1 g/dL (6.4-8.9)
[2023-10-23 21:03] LABS: FERRITIN 73.1 ng/mL (11.0-306.8)
[2023-10-23 21:36] LABS: ESTIMATED AVERAGE GLUCOSE 131 mg/dL (70-100); HEMOGLOBIN A1c% 6.2 % (4.27-6.07)
== END 2023-10-23 19:47 | disposition home or self-care (01) ==
LOC: LAB 19:46
PROVIDERS: ATTEND Physician Assistant Medical
DX: E11.9 Type 2 diabetes mellitus without complications (principal); N28.9 Disorder of kidney and ureter, unspecified; D64.9 Anemia, unspecified
CPT/HCPCS: 36415; 80053; 82728; 83036; 83540; 84466; 85025

== ENCOUNTER 2023-11-02 00:04 | Outpatient (CLI) | payer MEDICARE, OTHER | END 2023-11-02 23:59 | disposition critical access hospital (66) | LOC: EMS 00:04 | DX: M25.551 Pain in right hip (principal); Z96.641 Presence of right artificial hip joint | CPT/HCPCS: A0425; A0429 ==

== ENCOUNTER 2023-11-02 00:25 | Emergency (ER) | payer MEDICARE, OTHER ==
--- NOTE | 2023-11-02 01:09 | ED Physician Documentation ---
History of Present Illness - Stated complaint Stated Complaint: R HIP PX - Chief complaint Chief Complaint: Ext Problem - History obtained from History obtained from: Patient, EMS - Additonal information Additional information: HPI from patient. This patient underwent right hip replacement on October 07. This was undertaken at [facility] and was performed to address severe osteoarthritis of the right hip (there was no fracture or acute injury). Tonight, approximately 30 to 45 minutes prior to arrival, the patient went to stand up from a chair at home when she experienced sudden onset of severe right hip pain, described as sharp and stabbing. She immediately fell back into the chair and called 911. The pain is exacerbated with any movement of the right hip. Review of Systems Musculoskeletal: reports: Joint pain (right hip). denies: Back pain Neurologic: denies: Focal weakness, Numbness PD PAST MEDICAL HISTORY - Past Medical History Cardiovascular: Congestive heart failure, Hypertension, High cholesterol, Angina, Atrial flutter, Atrial fibrillation, Murmur, Arrhythmia Respiratory: None Neuro: None Endocrine/Autoimmune: Type 2 diabetes, HyPOthyroidism GI: GERD, Chronic diarrhea, Chronic constipation SHINGLE CARRIER: Ovarian cysts : Renal insuffiency, Nocturia, Frequency HEENT: Chronic vision loss, Chronic sinusitis Psych: None Musculoskeletal: None Derm: None - Past Surgical History Past Surgical History: Yes General: Cholecystectomy Ortho: Other /SHINGLE CARRIER: Tubal ligation Cardiovascular: Pacemaker, AICD HEENT: Cataracts Derm: Skin grafts - Present Medications Home Medications: Ambulatory Orders Medication Instructions Recorded Confirmed Furosemide [Lasix] 20 - 40 mg PO DAILY PRN MDD 40MG 02/07/15 11/02/23 Lysine [l-Lysine] 500 mg PO QPM PRN 03/11/15 11/02/23 Metoprolol Succinate 50 mg PO BID 06/25/17 11/02/23 Levothyroxine Sodium 200 mcg PO MOTUWETHFRSA@209909/09/18 11/02/23 Levothyroxine Sodium 400 mcg PO MICHELE@209909/09/18 11/02/23 Echinacea Purpurea Aerial Ext 65 mg PO DAILY 10/01/23 11/02/23 [Echinacea] Fluticasone [Flonase] 2 sprays CHERYL DAILY 10/01/23 11/02/23 Metronidazole 1% Gel [Metrogel] 1 applic TOP BID PRN 10/01/23 11/02/23 Multivitamin 1 each PO DAILY 10/01/23 11/02/23 Rosuvastatin Calcium [Crestor] 10 mg PO DAILY 10/01/23 11/02/23 Spironolactone [Aldactone] 25 mg PO Q48H 10/01/23 11/02/23 - Allergies Allergies/Adverse Reactions: Allergies Allergy/AdvReac Type Severity Reaction Status Date / Time No Known Drug Allergies Allergy Verified 11/02/23 00:31 - Social History Does the pt smoke?: No Smoking Status: Never smoker Does the pt drink ETOH?: No Does the pt have substance abuse?: No - Immunizations Immunizations are current?: Yes - POLST Patient has POLST: No POLST Status: Full Code PD ED PE NORMAL - Vitals Vital signs reviewed: Yes - General General: Alert and oriented X 3, No acute distress (NAD at rest, obvious painful discomfort with any movement involving the right hip), Well developed/nourished - Cardiac Cardiac: RRR, No murmur - Respiratory Respiratory: No respiratory distress, Clear bilaterally - Abdomen Abdomen: Soft, Non tender - Derm Derm: Normal color, Warm and dry - Extremities Extremities: Other (right hip surgical incision site (lateral aspect of hip) is C/D/I) - Neuro Neuro: No sensory deficit (LTS intact BLE) PD ED PE EXPANDED - Extremities Extremities: Pedal edema bilateral, Pedal Pulses Present Results - Vitals Vitals: Vital Signs - 24 hr 11/02/23 11/02/23 11/02/23 00:31 01:00 04:00 Temperature 37.0 C Heart Rate 70 70 70 Respiratory 16 17 16 Rate Blood Pressure 118/59 L 137/74 H 134/62 H O2 Saturation 98 100 98 11/02/23 11/02/23 06:22 07:00 Temperature Heart Rate 70 70 Respiratory 11 L 16 Rate Blood Pressure 112/83 H 116/56 L O2 Saturation 99 96 Oxygen O2 Source Room air - Labs Labs: Laboratory Tests 11/02/23 11/02/23 03:02 03:02 WBC 8.0 RBC 3.34 L Hgb 10.7 L Hct 34.5 L MCV 103.3 H MCH 32.0 H MCHC 31.0 L RDW 18.0 H Plt Count 329 MPV 10.7 Neut # (Auto) 5.7 Lymph # (Auto) 1.3 L [place] # (Auto) 0.5 Eos # (Auto) 0.4 Baso # (Auto) 0.1 Absolute Nucleated RBC 0.00 Nucleated RBC % 0.0 Sodium 139 Potassium 4.0 Chloride 101 Carbon Dioxide 30 Anion Gap 8.0 BUN 26 H Creatinine 1.3 Estimated GFR (MDRD) 39 L Glucose 150 H Calcium 10.0 - Rads (name of study) right hip 1 view xray Relevant Findings:: Prelim report reviewed, See rad report CT right hip Relevant Findings:: Prelim report reviewed, See rad report PD Medical Decision Making - ED course Complexity details: reviewed results, re-evaluated patient, considered differential, d/w patient ED course: Plain film x-ray of the right hip shows dislocation of the right hip prosthetic as well as comminuted zeke-prostatic fracture. I contacted Dr. Sanchez (lightning protection installer orthopedic surgery for [facility]). After reviewing the x-ray, Dr. Sanchez says that the procedure required is too complex for our facility and he recommends transfer to another hospital that can perform the appropriate procedure. 03:48: I spoke with Dr. Venegas (orthopedic surgery at [facility]). He says patient will likely need revision arthroplasty with long stem revision. He recommends contacting the orthopedic surgeon who performed the procedure; I explained that said orthopedic surgeon (Dr. Golden) is not lightning protection installer and thus not available for me to contact at this time. Dr. Venegas says the required procedure cannot be undertaken at [facility] in any event and recommends trying a different facility such as [facility]. The transfer center coordinator (still on the line) says she will attempt to contact the orthopedic surgeon for [facility] 04:15: I spoke with the transfer center coordinator for [facility]. He will endeavor to contact orthopedic surgery lightning protection installer but he notes that there is currently a 2-3 day wait list for pending admissions already. 04:46: I spoke with Dr. Hess, orthopedic surgery lightning protection installer for [facility]. He requests CT hip; he will then review the images and will get back in touch regarding whether he can take this case 08:00: Dr. Hess accepts patient for transfer to [facility], hospitalist service. Departure - Departure Disposition: 02 Transfer Acute Care Hosp Clinical Impression: Dislocation of internal right hip prosthesis Qualifiers: Encounter type: initial encounter Qualified Code(s): T84.020A - Dislocation of internal right hip prosthesis, initial encounter Periprosthetic fracture around internal prosthetic right hip joint Qualifiers: Encounter type: initial encounter Qualified Code(s): M97.01XA - Periprosthetic fracture around internal prosthetic right hip joint, initial encounter Condition: Good Forms: PCP List
[2023-11-02] MEDS ORDERED: SODIUM CHLORIDE 0.9% 1,000 ML IV STA (02:48)
[2023-11-02 03:06] LABS: BASOPHILS # (AUTO) 0.1 10^3/uL (0.0-0.1); BASOPHILS % (AUTO) 1.4 %; EOSINOPHILS # (AUTO) 0.4 10^3/uL (0.0-0.7); EOSINOPHILS % (AUTO) 4.6 %; HCT - HEMATOCRIT 34.5 % (37.0-47.0); HGB - HEMOGLOBIN 10.7 g/dL (12.0-16.0); LYMPHOCYTES # (AUTO) 1.3 10^3/uL (1.5-3.5); LYMPHOCYTES % (AUTO) 16.3 %; MEAN CORPUSCULAR VOLUME 103.3 fL (81.0-99.0); MEAN PLATELET VOLUME 10.7 fL (7.9-10.8); MONOCYTES # (AUTO) 0.5 10^3/uL (0.0-1.0); MONOCYTES % (AUTO) 6.4 %; NEUTROPHILS # (AUTO) 5.7 10^3/uL (1.5-6.6); NEUTROPHILS % (AUTO) 70.8 %; PLT - PLATELET COUNT 329 10^3/uL (130-450); RED BLOOD COUNT 3.34 10^6/uL (4.20-5.40)
[2023-11-02 04:12] LABS: CREATININE 1.3 mg/dL (0.6-1.3)
[2023-11-02] MEDS ORDERED: HYDROmorphone 1 MG/ML CARPUJECT IVP STA (04:58)
[2023-11-02 09:03] VITALS: BP 117/60; O2SAT 95
--- NOTE | 2023-11-02 09:07 | CT Report ---
PROCEDURE: Lower Extremity RT WO INDICATIONS: further evaluation of right hip injury TECHNIQUE: Noncontrast 3-mm axial sections acquired from the distal tibial shaft to the talar dome, with coronal and sagittal reformats. For radiation dose reduction, the following was used: automated exposure c ontrol, adjustment of mA and/or kV according to patient size. COMPARISON: Right hip plain films, 11/02/2023, 12/08/2022. FINDINGS: Image quality: There is artifact associated with the metallic hardware. Bones: There is right hip arthroplasty hardware. There is a periprosthetic fracture seen, with the f emoral component dislodged posteriorly and superiorly and rotated nearly 180 degrees. There is a comm inuted fracture seen involving the right proximal femur, with numerous comminuted fragments. Fracture lines extend through the intertrochanteric region. The prosthetic femoral head is dislocated posteri scott and superiorly to the prosthetic acetabular cup. The acetabular cup appears well seated. There is a chip fracture seen involving the right inferior pubic ramus, as demonstrated on series 2 i mage 241, with missing cortex anteriorly. There is a minimal fracture seen involving the right lateral acetabulum. Soft tissues: Numerous fragments of bone and bone cement can be seen within the soft tissues. Surrou nding irregular hematoma can be seen, including laterally. A potential right lung gland cyst can be seen on the right, as on series 3 image 268. No bladder wall thickening can be seen. No dilated loops of small bowel are seen. Diverticulosis can be seen, withou t kj findings of active diverticulitis. Impression: Significant periprosthetic fracture seen involving the right femur, with numerous fragmen ts. The femoral component is dislodged from the femur superiorly and posteriorly and is rotated nearly 18 0 degrees. There is an additional chip fracture seen involving the right inferior pubic ramus, with missing rony ex. A minimal fracture can be seen involving the right lateral acetabulum. Surrounding presumed soft tissue hematoma can be seen. Additional findings: Likely Bartholin's gland cyst Diverticulosis, without findings of active diverticulitis. Note: No significant discrepancy from the preliminary report. Reviewed by: Gary Olivia MD on 11/02/2023 8:05 AM [facility] Approved by: Gary Olivia MD on 11/02/2023 8:05 AM [facility] Station ID: [id number]
--- NOTE | 2023-11-02 09:09 | XRAY Report ---
PROCEDURE: Hip w/Pelvis 1V RT INDICATIONS: right hip pain, recent ORIF TECHNIQUE: AP pelvis with lateral view(s) of the hip(s). COMPARISON: 10/07/2023. Correlation is also made with the subsequently performed CT. FINDINGS: Bones: The femoral component of the right hip arthroplasty hardware is dislodged superiorly and rota doni nearly 180 degrees. There is a significant fracture seen involving the right proximal femur, exte nding through the greater trochanter. Numerous phrenic fracture fragments can be seen. Soft tissues: Associated soft tissue swelling is seen. IMPRESSION: Periprosthetic fracture involving the femoral component of the right hip arthroplasty, with significa nt proximal femur fracture. Note: No significant discrepancy from the preliminary report. Reviewed by: Gary Olivia MD on 11/02/2023 8:08 AM [facility] Approved by: Gary Olivia MD on 11/02/2023 8:08 AM [facility] Station ID: [id number]
== END 2023-11-02 09:02 | disposition short-term general hospital (02) ==
LOC: EDUNIT# → EDBD → ED 00:25
DX: T84.020A Dislocation of internal right hip prosthesis, initial encounter (principal); M97.01XA Periprosthetic fracture around internal prosthetic right hip joint, initial encounter; I11.0 Hypertensive heart disease with heart failure; I50.9 Heart failure, unspecified; E78.00 Pure hypercholesterolemia, unspecified; I48.91 Unspecified atrial fibrillation; E11.9 Type 2 diabetes mellitus without complications; E03.9 Hypothyroidism, unspecified; Z79.899 Other long term (current) drug therapy
CPT/HCPCS: 36415; 73501; 73700; 80048; 85025; 96374; 99284; 99285; J1170

== ENCOUNTER 2023-11-02 08:50 | Outpatient (CLI) | payer MEDICARE, OTHER | END 2023-11-02 23:59 | disposition short-term general hospital (02) | LOC: EMS 08:50 | PROVIDERS: ATTEND Emergency Medicine | DX: T84.020A Dislocation of internal right hip prosthesis, initial encounter (principal); M97.01XA Periprosthetic fracture around internal prosthetic right hip joint, initial encounter | CPT/HCPCS: A0425; A0428 ==

== ENCOUNTER 2023-12-18 08:30 | Outpatient (CLI) | payer MEDICARE, OTHER ==
[2023-12-18 08:47] LABS: BASOPHILS # (AUTO) 0.1 10^3/uL (0.0-0.1); BASOPHILS % (AUTO) 2.3 %; EOSINOPHILS # (AUTO) 0.2 10^3/uL (0.0-0.7); EOSINOPHILS % (AUTO) 3.9 %; LYMPHOCYTES # (AUTO) 1.1 10^3/uL (1.5-3.5); LYMPHOCYTES % (AUTO) 20.8 %; MEAN CORPUSCULAR HEMOGLOBIN 27.4 pg (27.0-31.0); MEAN CORPUSCULAR HGB CONC 29.7 g/dL (32.0-36.0); MEAN CORPUSCULAR VOLUME 92.3 fL (81.0-99.0); MEAN PLATELET VOLUME 11.7 fL (7.9-10.8); MONOCYTES # (AUTO) 0.3 10^3/uL (0.0-1.0); MONOCYTES % (AUTO) 5.8 %; NEUTROPHILS # (AUTO) 3.4 10^3/uL (1.5-6.6); PLT - PLATELET COUNT 323 10^3/uL (130-450); RED BLOOD COUNT 4.01 10^6/uL (4.20-5.40); RED CELL DISTRIBUTION WIDTH 17.3 % (12.0-15.0); WHITE BLOOD COUNT 5.1 x10^3/uL (4.8-10.8)
[2023-12-18 09:00] LABS: ALBUMIN 4.1 g/dL (3.2-5.5); ALBUMIN/GLOBULIN RATIO 1.6 (1.0-2.2); BILIRUBIN,TOTAL 0.4 mg/dL (0.2-1.0); CALCIUM 9.5 mg/dL (8.5-10.3); CREATININE 1.2 mg/dL (0.6-1.3); POTASSIUM 3.9 mmol/L (3.5-4.5); TOTAL PROTEIN 6.7 g/dL (6.4-8.9)
[2023-12-18 09:21] LABS: FERRITIN 27.6 ng/mL (11.0-306.8)
== END 2023-12-18 08:31 | disposition home or self-care (01) ==
LOC: LAB 08:30
PROVIDERS: ATTEND Physician Assistant Medical
DX: I50.9 Heart failure, unspecified (principal); D64.9 Anemia, unspecified
CPT/HCPCS: 36415; 80053; 82728; 83880; 85025

== ENCOUNTER 2023-12-23 08:00 | Outpatient (CLI) | payer MEDICARE, OTHER ==
[2023-12-23 17:53] LABS: BILIRUBIN,URINE NEGATIVE (NEGATIVE); GLUCOSE, URINE (UA) NEGATIVE (NEGATIVE); KETONES,URINE (UA) NEGATIVE (NEGATIVE); LEUKOCYTE ESTERASE, URINE TRACE (NEGATIVE); NITRITE,URINE NEGATIVE (NEGATIVE); OCCULT BLOOD,URINE TRACE-INTA (NEGATIVE); PROTEIN,URINE NEGATIVE (NEGATIVE); UROBILINOGEN,URINE 0.2 (NORMAL) E.U./dL (NORMAL)
[2023-12-23 17:56] LABS: CLARITY,URINE CLEAR (CLEAR)
[2023-12-23 18:08] LABS: BACTERIA,URINE Few /HPF (None Seen); RBC,URINE 0-5 /HPF (0-5); SQUAMOUS EPITHELIAL CELL,UR FEW Squamous (<= Few)
== END 2023-12-23 23:59 | disposition home or self-care (01) ==
LOC: LAB.N 08:00
PROVIDERS: ATTEND Physician Assistant Medical
DX: R31.9 Hematuria, unspecified (principal)
CPT/HCPCS: 81001; 87086

== ENCOUNTER 2024-04-11 09:01 | Emergency (ER) | payer MEDICARE, OTHER ==
[2024-04-11 10:13] LABS: BASOPHILS # (AUTO) 0.1 10^3/uL (0.0-0.1); BASOPHILS % (AUTO) 0.9 %; EOSINOPHILS # (AUTO) 0.1 10^3/uL (0.0-0.7); EOSINOPHILS % (AUTO) 1.1 %; HCT - HEMATOCRIT 41.4 % (37.0-47.0); LYMPHOCYTES % (AUTO) 9.8 %; MEAN CORPUSCULAR HGB CONC 31.4 g/dL (32.0-36.0); MEAN PLATELET VOLUME 11.3 fL (7.9-10.8); MONOCYTES # (AUTO) 0.4 10^3/uL (0.0-1.0); NEUTROPHILS # (AUTO) 8.8 10^3/uL (1.5-6.6); NEUTROPHILS % (AUTO) 83.9 %; PLT - PLATELET COUNT 227 10^3/uL (130-450); RED BLOOD COUNT 4.65 10^6/uL (4.20-5.40); RED CELL DISTRIBUTION WIDTH 21.8 % (12.0-15.0); WHITE BLOOD COUNT 10.5 x10^3/uL (4.8-10.8)
[2024-04-11 10:15] LABS: SLIDE REVIEW? Indicated
[2024-04-11 10:26] LABS: PLATELET MORPHOLOGY NORMAL APPEARANCE (NORMAL)
[2024-04-11 10:27] LABS: PLATELET ESTIMATE, MANUAL NORMAL (130-450,000) (NORMAL); RBC MORPHOLOGY (MULTIPLE) 2+ ANISOCYTOSIS (NORMAL)
[2024-04-11 10:30] LABS: ALBUMIN 3.9 g/dL (3.2-5.5); ALBUMIN/GLOBULIN RATIO 1.3 (1.0-2.2); ALKALINE PHOSPHATASE 61 IU/L (42-121); ALT ALANINE AMINOTRANSFERASE 10 IU/L (10-60); AST ASPARTATE AMINOTRANSFERASE 19 IU/L (10-42); BUN - BLOOD UREA NITROGEN 17 mg/dL (6-20); CALCIUM 9.4 mg/dL (8.5-10.3); CARBON DIOXIDE - CO2 27 mmol/L (21-32); CHLORIDE 102 mmol/L (101-111); CREATININE 1.1 mg/dL (0.6-1.3); GFR - MDRD 48 (>89); GLUCOSE 177 mg/dL (74-104); LIPASE < 10 U/L (11-82); POTASSIUM 3.5 mmol/L (3.5-4.5); SODIUM 137 mmol/L (135-145)
--- NOTE | 2024-04-11 11:51 | ED Physician Documentation ---
PD HPI ABD PAIN - Stated complaint Stated Complaint: GI - Chief complaint Chief Complaint: Abd Pain - History obtained from History obtained from: Patient - Additional information Additional information: 83-year-old woman with history of remote tubal ligation and cholecystectomy. She saw my partner last month for diverticulitis, her first flare on the CT at that time she did have a phlegmon. She did get better on antibiotics for the last 3 days she has had some mild lower abdominal discomfort, loose and mucousy stools consistent with prior episode of diverticulitis. Pain is mild. She denies fevers or chills. As an ancillary complaint she had noted a lump at the posterior part of her vagina/perineum that is been there for quite some time. PD PAST MEDICAL HISTORY - Past Medical History Past Medical History: Yes Cardiovascular: Congestive heart failure, Hypertension, High cholesterol, Angina, Atrial flutter, Atrial fibrillation, Murmur, Arrhythmia Respiratory: None Neuro: None Endocrine/Autoimmune: Type 2 diabetes, HyPOthyroidism GI: GERD, Chronic diarrhea, Chronic constipation, Diverticulitis OFFSET PRINTER: Ovarian cysts : Renal insuffiency, Nocturia, Frequency HEENT: Chronic vision loss, Chronic sinusitis Psych: None Musculoskeletal: None Derm: None - Past Surgical History Past Surgical History: Yes General: Cholecystectomy Ortho: Other /OFFSET PRINTER: Tubal ligation Cardiovascular: Pacemaker, AICD HEENT: Cataracts Derm: Skin grafts - Present Medications Home Medications: Ambulatory Orders Medication Instructions Recorded Confirmed Furosemide [Lasix] 20 - 40 mg PO DAILY PRN MDD 40MG 02/07/15 03/23/24 Metoprolol Succinate 50 mg PO BID 06/25/17 03/23/24 Levothyroxine Sodium 200 mcg PO DAILY 09/09/18 03/23/24 Levothyroxine Sodium 400 mcg PO MICHELE@0600 09/09/18 03/23/24 Echinacea Purpurea Aerial Ext 65 mg PO BID 10/01/23 03/23/24 [Echinacea] Fluticasone [Flonase] 2 sprays CHERYL DAILY 10/01/23 03/23/24 Multivitamin 1 each PO DAILY 10/01/23 03/23/24 Rosuvastatin Calcium [Crestor] 10 mg PO DAILY PM 10/01/23 03/23/24 Spironolactone [Aldactone] 25 mg PO Q48H 10/01/23 11/02/23 Acetaminophen [Tylenol] 650 mg PO Q8H PRN 03/23/24 03/23/24 Ferrous Sulfate [Slow Fe] 65 mg PO DAILY 03/23/24 03/23/24 Rivaroxaban [Xarelto] 15 mg PO DAILY PM 03/23/24 03/23/24 levoFLOXacin [Levofloxacin] 750 mg PO DAILY #10 tablet 03/23/24 metroNIDAZOLE [Flagyl] 500 mg PO TID #30 tab 03/23/24 Ciprofloxacin HCl [Cipro] 500 mg PO BID #20 tablet 04/11/24 metroNIDAZOLE [Flagyl] 500 mg PO TID 10 Days #30 tablet 04/11/24 - Allergies Allergies/Adverse Reactions: Allergies Allergy/AdvReac Type Severity Reaction Status Date / Time No Known Drug Allergies Allergy Verified 04/11/24 09:41 - Social History Does the pt smoke?: No Smoking Status: Never smoker Does the pt drink ETOH?: No Does the pt have substance abuse?: No - Immunizations Immunizations are current?: Yes - POLST Patient has POLST: No POLST Status: Full Code PD ED PE NORMAL - Vitals Vital signs reviewed: Yes - General General: Alert and oriented X 3, No acute distress - Cardiac Cardiac: RRR, No murmur - Respiratory Respiratory: No respiratory distress, Clear bilaterally - Abdomen Abdomen: Normal bowel sounds, Soft, Non tender - Female Female : Other (Done with Rosetta RN. On the left posterior labia there appears to be an uninfected but slightly swollen cyst of some kind. [place] sized.) - Neuro Neuro: Alert and oriented X 3 - Psych Psych: Normal mood, Normal affect Results - Vitals Vitals: Vital Signs - 24 hr 04/11/24 04/11/24 04/11/24 09:41 12:28 14:00 Temperature 36.4 C L 36.8 C 36.8 C Heart Rate 71 70 70 Respiratory 18 16 16 Rate Blood Pressure 118/62 121/64 124/75 O2 Saturation 98 98 100 Oxygen O2 Source Room air - Labs Labs: Laboratory Tests 04/11/24 04/11/24 04/11/24 10:00 10:05 10:05 WBC 10.5 RBC 4.65 Hgb 13.0 Hct 41.4 MCV 89.0 MCH 28.0 MCHC 31.4 L RDW 21.8 H Plt Count 227 MPV 11.3 H Neut # (Auto) 8.8 H Lymph # (Auto) 1.0 L [place] # (Auto) 0.4 Eos # (Auto) 0.1 Baso # (Auto) 0.1 Absolute Nucleated RBC 0.00 Nucleated RBC % 0.0 Manual Slide Review Indicated Platelet Estimate NORMAL (130-450,000) Platelet Morphology NORMAL APPEARANCE RBC Morph Micro Appear 2+ ANISOCYTOSIS Sodium 137 Potassium 3.5 Chloride 102 Carbon Dioxide 27 Anion Gap 8.0 BUN 17 Creatinine 1.1 Estimated GFR (MDRD) 48 L Glucose 177 H Calcium 9.4 Total Bilirubin 1.0 AST 19 ALT 10 Alkaline Phosphatase 61 Total Protein 7.0 Albumin 3.9 Globulin 3.1 Albumin/Globulin Ratio 1.3 Lipase < 10 L Urine Color YELLOW Urine Clarity CLOUDY Urine pH 5.5 Ur Specific [place] 1.020 Urine Protein TRACE Urine Glucose (UA) NEGATIVE Urine Ketones TRACE Urine Occult Blood TRACE-INTA Urine Nitrite NEGATIVE Urine Bilirubin SMALL H Urine Urobilinogen 0.2 (NORMAL) Ur Leukocyte Esterase TRACE H Urine RBC 0-5 Urine WBC 6-10 H Ur Squamous Epith Cells MOD Squamous H Urine Crystals 26-50 Ca Oxalate Urine Bacteria Moderate H Urine Casts 3-5 Hyaline Casts Ur Microscopic Review INDICATED Urine Culture Comments NOT INDICATED - Rads (name of study) CT of the abdomen pelvis with probably severe diverticulitis without phlegmon at this point. She does have hepatomegaly, cardiomegaly, and remote cho Relevant Findings:: Final report received, EMP independent interpretation of test PD Medical Decision Making - ED course ED course: 83-year-old woman with recurrent diverticulitis. No evidence of complicated diverticulitis at this juncture. She did okay with a ranjith quinolone and Flagyl last month and this is repeated. Discussed with her the need for follow-up colonoscopy and possible surgical consult at this continues to recur. Departure - Departure Disposition: 01 Home, Self Care Clinical Impression: Diverticulitis of gastrointestinal tract Condition: Good Record reviewed to determine appropriate education?: Yes Instructions: Diet Low Residue, ED Diverticulitis, ED Diet Clear Liquid [facility] [Provider Group] Prescriptions: Ciprofloxacin HCl [Cipro] 500 mg PO BID #20 tablet metroNIDAZOLE [Flagyl] 500 mg PO TID 10 Days #30 tablet Comments: For the labial cyst, reasonable to follow-up with gynecology, call for an appointment. I sent your prescription electronically to the [facility] in [place]. Follow- up with ROSALINA Negrete for consideration of surgical consult with colonoscopy in approximately 2 months time. If this continues to happen you may need a surgical resection of part of your colon. Clear liquid diet for the next 24 hours, then another 24 hours of low residue diet, see attached instructions. Forms: PCP List Discharge Date/Time: 04/11/24 14:00
[2024-04-11] MEDS ORDERED: iohexoL-300 100 ML VIAL ONE (12:05)
[2024-04-11 12:29] LABS: BILIRUBIN,URINE SMALL (NEGATIVE); CLARITY,URINE CLOUDY (CLEAR); GLUCOSE, URINE (UA) NEGATIVE (NEGATIVE); KETONES,URINE (UA) TRACE mg/dL (NEGATIVE); LEUKOCYTE ESTERASE, URINE TRACE (NEGATIVE); NITRITE,URINE NEGATIVE (NEGATIVE); OCCULT BLOOD,URINE TRACE-INTA (NEGATIVE); PH,URINE 5.5 PH (5.0-7.5); PROTEIN,URINE TRACE mg/dL (NEGATIVE); UROBILINOGEN,URINE 0.2 (NORMAL) E.U./dL (NORMAL)
[2024-04-11 12:36] LABS: BACTERIA,URINE Moderate /HPF (None Seen); CASTS, URINE 3-5 Hyaline Casts /LPF; CRYSTALS,URINE 26-50 Ca Oxalate /LPF; RBC,URINE 0-5 /HPF (0-5); SQUAMOUS EPITHELIAL CELL,UR MOD Squamous (<= Few)
--- NOTE | 2024-04-11 13:58 | CT Report ---
PROCEDURE: Abdomen/Pelvis W INDICATIONS: IV only, lower abdominal pain. Hx Phlegmon 1 mo CONTRAST: 100ml [id number] TECHNIQUE: After the administration of intravenous contrast, a CT scan of the abdomen and pelvis was performed. Images were recorded and evaluated at appropriate window settings. Reformats: coronal and sagittal. F or radiation dose reduction, the following was used: automated exposure control, adjustment of mA and /or kV according to patient size. COMPARISON: 03/23/2024 FINDINGS: Image quality: Diagnostic. Lower chest: Moderate cardiomegaly, pacemaker. Extreme lung bases are clear.. Liver: No solid mass. Hepatomegaly, unchanged. Craniocaudal dimension of the liver is 20.1 cm.. Gallbladder: Surgically absent Biliary tree: No intrahepatic or extrahepatic dilation, accounting for age. Spleen: No splenomegaly. Multiple stable small low-density splenic lesions are typically benign.. Pancreas: No pancreatic ductal dilation. Adrenals: No adrenal nodule. Kidneys and ureters: No hydronephrosis. No renal cystic lesion which requires follow up. No solid mas s. Stomach, bowel and peritoneum: There is extensive edema involving the wall of the sigmoid and rectum with thumbprinting. There are diverticuli in this region. Findings are progressed since the previous study. No focal abscess or free air. No pathologic free fluid. Lymph nodes: No central or retroperitoneal adenopathy. Vessels: No infrarenal aortic aneurysm. Patent portal vein. PELVIS Reproductive organs: Unremarkable. Bladder: No abnormal wall thickening, accounting for underdistention. Pelvic lymph nodes: No pelvic adenopathy by size criteria. Bones: No aggressive osseous abnormality. Extensive metallic artifact from total right hip arthroplas ty.. Other: No significant ventral or inguinal hernia. IMPRESSION: 1. Progressive, impressive changes of diffuse colitis of the sigmoid and rectum. Consider infectious versus inflammatory etiologies. Severe diverticulitis is part of the differential. 2. No abscess identified. 3. Hepatomegaly. 4. Moderate cardiomegaly. 5. Remote cholecystectomy. Reviewed by: Wade Guzman MD on 04/11/2024 1:57 PM PDT Approved by: Wade Guzman MD on 04/11/2024 1:57 PM PDT Station ID: [id number]
[2024-04-11 14:11] VITALS: BP 124/75; O2SAT 100
[2024-04-11] MEDS: iohexoL-300 100 ML VIAL IVP ONE (14:25)
== END 2024-04-11 14:00 | disposition home or self-care (01) ==
LOC: ED 09:01
DX: K57.92 Diverticulitis of intestine, part unspecified, without perforation or abscess without bleeding (principal); I11.0 Hypertensive heart disease with heart failure; I50.9 Heart failure, unspecified; E78.00 Pure hypercholesterolemia, unspecified; I48.91 Unspecified atrial fibrillation; E11.9 Type 2 diabetes mellitus without complications; E03.9 Hypothyroidism, unspecified; Z95.810 Presence of automatic (implantable) cardiac defibrillator; Z79.899 Other long term (current) drug therapy; Z79.01 Long term (current) use of anticoagulants
CPT/HCPCS: 36415; 74177; 80053; 81001; 83690; 85025; 99284; Q9967; 81003; 87086

== ENCOUNTER 2024-04-16 09:05 | Outpatient (CLI) | payer MEDICARE, OTHER ==
[2024-04-16 18:21] LABS: BASOPHILS # (AUTO) 0.1 10^3/uL (0.0-0.1); BASOPHILS % (AUTO) 2.2 %; EOSINOPHILS # (AUTO) 0.2 10^3/uL (0.0-0.7); EOSINOPHILS % (AUTO) 3.4 %; HCT - HEMATOCRIT 40.9 % (37.0-47.0); LYMPHOCYTES # (AUTO) 1.2 10^3/uL (1.5-3.5); LYMPHOCYTES % (AUTO) 20.8 %; MEAN CORPUSCULAR HEMOGLOBIN 28.8 pg (27.0-31.0); MEAN CORPUSCULAR HGB CONC 31.8 g/dL (32.0-36.0); MEAN CORPUSCULAR VOLUME 90.5 fL (81.0-99.0); MEAN PLATELET VOLUME 12.4 fL (7.9-10.8); MONOCYTES # (AUTO) 0.4 10^3/uL (0.0-1.0); NEUTROPHILS # (AUTO) 3.7 10^3/uL (1.5-6.6); NEUTROPHILS % (AUTO) 66.4 %; PLT - PLATELET COUNT 282 10^3/uL (130-450); RED BLOOD COUNT 4.52 10^6/uL (4.20-5.40); RED CELL DISTRIBUTION WIDTH 21.3 % (12.0-15.0); WHITE BLOOD COUNT 5.5 x10^3/uL (4.8-10.8)
[2024-04-16 18:52] LABS: ALBUMIN 3.8 g/dL (3.2-5.5); ALBUMIN/GLOBULIN RATIO 1.4 (1.0-2.2); ALKALINE PHOSPHATASE 55 IU/L (42-121); ALT ALANINE AMINOTRANSFERASE 13 IU/L (10-60); AST ASPARTATE AMINOTRANSFERASE 25 IU/L (10-42); BILIRUBIN,TOTAL 0.4 mg/dL (0.2-1.0); BUN - BLOOD UREA NITROGEN 15 mg/dL (6-20); CALCIUM 9.4 mg/dL (8.5-10.3); CARBON DIOXIDE - CO2 27 mmol/L (21-32); CHLORIDE 107 mmol/L (101-111); CHOL/HDL RATIO 2.5 (<4.4); CHOLESTEROL 118 mg/dL; CREATININE 1.1 mg/dL (0.6-1.3); GFR - MDRD 48 (>89); GLUCOSE 91 mg/dL (74-104); HDL CHOLESTEROL 47 mg/dL; LDL CHOLESTEROL,CALCULATED 60 mg/dL; LDL/HDL RATIO 1.3 (<4.4); POTASSIUM 4.2 mmol/L (3.5-4.5); SODIUM 139 mmol/L (135-145); TOTAL PROTEIN 6.5 g/dL (6.4-8.9); TRIGLYCERIDES 53 mg/dL (48-352); VLDL CHOLESTEROL 11 mg/dL
[2024-04-16 19:02] LABS: PLATELET ESTIMATE, MANUAL NORMAL (130-450,000) (NORMAL); PLATELET MORPHOLOGY NORMAL APPEARANCE (NORMAL); SLIDE REVIEW? Indicated
[2024-04-16 19:03] LABS: RBC MORPHOLOGY (MULTIPLE) 3+ ANISOCYTOSIS (NORMAL)
[2024-04-16 20:26] LABS: ESTIMATED AVERAGE GLUCOSE 137 mg/dL (70-100); HEMOGLOBIN A1c% 6.4 % (4.27-6.07)
== END 2024-04-16 09:06 | disposition home or self-care (01) ==
LOC: LAB.N 09:05
PROVIDERS: ATTEND Physician Assistant Medical
DX: D64.9 Anemia, unspecified (principal); E11.9 Type 2 diabetes mellitus without complications
CPT/HCPCS: 36415; 80053; 80061; 83036; 83721; 85025

== ENCOUNTER 2024-05-01 14:33 | Emergency (ER) | payer MEDICARE, OTHER ==
[2024-05-01 15:27] LABS: BASOPHILS # (AUTO) 0.1 10^3/uL (0.0-0.1); BASOPHILS % (AUTO) 1.1 %; EOSINOPHILS # (AUTO) 0.1 10^3/uL (0.0-0.7); EOSINOPHILS % (AUTO) 1.2 %; HGB - HEMOGLOBIN 13.8 g/dL (12.0-16.0); LYMPHOCYTES # (AUTO) 1.2 10^3/uL (1.5-3.5); LYMPHOCYTES % (AUTO) 10.6 %; MEAN CORPUSCULAR HEMOGLOBIN 28.5 pg (27.0-31.0); MEAN CORPUSCULAR HGB CONC 31.4 g/dL (32.0-36.0); MEAN CORPUSCULAR VOLUME 90.9 fL (81.0-99.0); MEAN PLATELET VOLUME 12.9 fL (7.9-10.8); MONOCYTES # (AUTO) 0.5 10^3/uL (0.0-1.0); MONOCYTES % (AUTO) 4.2 %; NEUTROPHILS # (AUTO) 9.4 10^3/uL (1.5-6.6); NEUTROPHILS % (AUTO) 82.6 %; PLT - PLATELET COUNT 232 10^3/uL (130-450); RED BLOOD COUNT 4.84 10^6/uL (4.20-5.40); RED CELL DISTRIBUTION WIDTH 18.8 % (12.0-15.0); WHITE BLOOD COUNT 11.4 x10^3/uL (4.8-10.8)
[2024-05-01 15:36] LABS: BILIRUBIN,URINE NEGATIVE (NEGATIVE); GLUCOSE, URINE (UA) NEGATIVE (NEGATIVE); KETONES,URINE (UA) NEGATIVE (NEGATIVE); LEUKOCYTE ESTERASE, URINE NEGATIVE (NEGATIVE); NITRITE,URINE NEGATIVE (NEGATIVE); OCCULT BLOOD,URINE NEGATIVE (NEGATIVE); PROTEIN,URINE NEGATIVE (NEGATIVE); UROBILINOGEN,URINE 0.2 (NORMAL) E.U./dL (NORMAL)
[2024-05-01 15:37] LABS: CLARITY,URINE CLEAR (CLEAR)
[2024-05-01 15:47] LABS: ALBUMIN 4.2 g/dL (3.2-5.5); ALBUMIN/GLOBULIN RATIO 1.4 (1.0-2.2); BILIRUBIN,TOTAL 0.7 mg/dL (0.2-1.0); CALCIUM 10.1 mg/dL (8.5-10.3); CREATININE 1.1 mg/dL (0.6-1.3); POTASSIUM 4.1 mmol/L (3.5-4.5); TOTAL PROTEIN 7.2 g/dL (6.4-8.9)
[2024-05-01] MEDS ORDERED: iohexoL-300 100 ML VIAL ONE (15:52)
[2024-05-01] MEDS: iohexoL-300 100 ML VIAL IVP ONE (16:49)
--- NOTE | 2024-05-01 17:01 | CT Report ---
PROCEDURE: Abdomen/Pelvis W INDICATIONS: recurrent lower abd pain, recent divertic. CONTRAST: 100ml Omni 300 TECHNIQUE: After the administration of intravenous contrast, a CT scan of the abdomen and pelvis was performed. Images were recorded and evaluated at appropriate window settings. Reformats: coronal and sagittal. F or radiation dose reduction, the following was used: automated exposure control, adjustment of mA and /or kV according to patient size. COMPARISON: 04/11/2024 FINDINGS: Image quality: Diagnostic. Lower chest: Cardiomegaly. Pacemaker leads. Lung bases are clear.. Liver: No solid mass. Hepatic steatosis. Gallbladder: Surgically absent. Biliary tree: No intrahepatic or extrahepatic dilation, accounting for age. Spleen: No splenomegaly. Multiple hypodensities are stable compared to prior. Pancreas: No pancreatic ductal dilation. Adrenals: No adrenal nodule. Kidneys and ureters: No hydronephrosis. Simple appearing right renal cyst. No renal cystic lesion whi ch requires follow up. No solid mass. Stomach, bowel and peritoneum: No gastric or small bowel dilation. No pathologic free fluid. Signifi cant wall thickening involving the sigmoid colon is redemonstrated. Diverticulosis is present. No ext raluminal gas or organized fluid collections. Lymph nodes: No central or retroperitoneal adenopathy. Vessels: No infrarenal aortic aneurysm. Atherosclerotic vascular calcifications. Patent portal vein. PELVIS. Artifact from right hip arthroplasty limits evaluation of the pelvis. Reproductive organs: Unremarkable. Bladder: No abnormal wall thickening, accounting for underdistention. Pelvic lymph nodes: No pelvic adenopathy by size criteria. Bones: No aggressive osseous abnormality. Right hip arthroplasty. Degenerative changes of the spine. Decreased osseous mineralization. Stable L4 compression deformity. Other: No significant ventral or inguinal hernia. IMPRESSION: Redemonstration of significant sigmoid wall thickening. Few diverticula noted. Findings may be infect ious or inflammatory in etiology versus secondary to diverticulitis. This is similar in appearance to prior. Recommend colonoscopy once inflammation is resolved to exclude underlying neoplasm. Reviewed by: Federico Emmanuel MD on 05/01/2024 3:59 PM [facility] Approved by: Federico Emmanuel MD on 05/01/2024 3:59 PM [facility] Station ID: [id number]
[2024-05-01] MEDS: KETOROLAC 15 MG/ML VIAL IVP STA (17:05)
[2024-05-01] MEDS: SODIUM CHLORIDE 0.9% 1,000 ML IV STA (17:06)
[2024-05-01] MEDS: KETOROLAC 15 MG/ML VIAL IVP ONE (17:13)
--- NOTE | 2024-05-01 17:41 | ED Physician Documentation ---
PD HPI ABD PAIN - Stated complaint Stated Complaint: ABD DISCOMFORT/GI ISSUES - Chief complaint Chief Complaint: Abd Pain - History obtained from History obtained from: Patient - History of Present Illness Timing - onset: How many weeks ago (1) Timing - duration: Weeks (1) Timing - details: Gradual onset, Still present, Waxing and waning Quality: Cramping, Aching, Pain Location: Suprapubic, LLQ Radiation: No: Chest, Lower back, Left flank Associated symptoms: Nausea, Diarrhea. No: Fever, Hematemesis, Constipation Recently seen: Emergency Dept (few weeks ago for similar and Dx persistent diverticulitis. Was improved then symptoms again the past week but this time with notable diarrhea.) Review of Systems Constitutional: denies: Fever, Chills Nose: denies: Rhinorrhea / runny nose, Congestion Throat: denies: Sore throat Respiratory: denies: Cough GI: reports: Diarrhea. denies: Constipation, Bloody / black stool Skin: denies: Rash, Lesions PD PAST MEDICAL HISTORY - Past Medical History Past Medical History: Yes Cardiovascular: Congestive heart failure, Hypertension, High cholesterol, Angina, Atrial flutter, Atrial fibrillation, Murmur, Arrhythmia Respiratory: None Neuro: None Endocrine/Autoimmune: Type 2 diabetes, HyPOthyroidism GI: GERD, Chronic diarrhea, Chronic constipation, Diverticulitis BILLET EXAMINER: Ovarian cysts : Renal insuffiency, Nocturia, Frequency HEENT: Chronic vision loss, Chronic sinusitis Psych: None Musculoskeletal: None Derm: None - Past Surgical History Past Surgical History: Yes General: Cholecystectomy Ortho: Hip replacement, Other /BILLET EXAMINER: Tubal ligation Cardiovascular: Pacemaker, AICD HEENT: Cataracts Derm: Skin grafts - Present Medications Home Medications: Ambulatory Orders Medication Instructions Recorded Confirmed Furosemide [Lasix] 20 - 40 mg PO DAILY PRN MDD 40MG 02/07/15 03/23/24 Metoprolol Succinate 50 mg PO BID 06/25/17 03/23/24 Levothyroxine Sodium 200 mcg PO DAILY 09/09/18 03/23/24 Levothyroxine Sodium 400 mcg PO MICHELE@0600 09/09/18 03/23/24 Echinacea Purpurea Aerial Ext 65 mg PO BID 10/01/23 03/23/24 [Echinacea] Fluticasone [Flonase] 2 sprays CHERYL DAILY 10/01/23 03/23/24 Multivitamin 1 each PO DAILY 10/01/23 03/23/24 Rosuvastatin Calcium [Crestor] 10 mg PO DAILY PM 10/01/23 03/23/24 Spironolactone [Aldactone] 25 mg PO Q48H 10/01/23 11/02/23 Acetaminophen [Tylenol] 650 mg PO Q8H PRN 03/23/24 03/23/24 Ferrous Sulfate [Slow Fe] 65 mg PO DAILY 03/23/24 03/23/24 Rivaroxaban [Xarelto] 15 mg PO DAILY PM 03/23/24 03/23/24 levoFLOXacin [Levofloxacin] 750 mg PO DAILY #10 tablet 03/23/24 metroNIDAZOLE [Flagyl] 500 mg PO TID #30 tab 03/23/24 Ciprofloxacin HCl [Cipro] 500 mg PO BID #20 tablet 04/11/24 metroNIDAZOLE [Flagyl] 500 mg PO TID 10 Days #30 tablet 04/11/24 Saccharomyces Boulardii [Florastor] 500 mg PO TID 7 Days #20 cap 05/01/24 Vancomycin HCl [Vancocin HCl] 250 mg PO QID #40 cap 05/01/24 - Allergies Allergies/Adverse Reactions: Allergies Allergy/AdvReac Type Severity Reaction Status Date / Time No Known Drug Allergies Allergy Verified 05/01/24 14:46 - Social History Does the pt smoke?: No Smoking Status: Never smoker Does the pt drink ETOH?: No Does the pt have substance abuse?: No - Immunizations Immunizations are current?: Yes - POLST Patient has POLST: No POLST Status: Full Code PD ED PE NORMAL - Vitals Vital signs reviewed: Yes - General General: Alert and oriented X 3, No acute distress, Well developed/nourished - Cardiac Cardiac: RRR, No murmur - Respiratory Respiratory: Clear bilaterally - Abdomen Abdomen: Soft, Non distended, Other (tender with local guarding and mild percussion tender LLQ and left suprapubic area. Not tender RLQ. No rebound. ). No: Normal bowel sounds Results - Vitals Vitals: Vital Signs - 24 hr 05/01/24 18:02 Heart Rate 70 Respiratory 20 Rate Blood Pressure 139/71 H O2 Saturation 100 Oxygen O2 Source Room air - Labs Labs: Laboratory Tests 05/01/24 05/01/24 05/01/24 15:05 15:23 15:23 WBC 11.4 H RBC 4.84 Hgb 13.8 Hct 44.0 MCV 90.9 MCH 28.5 MCHC 31.4 L RDW 18.8 H Plt Count 232 MPV 12.9 H Neut # (Auto) 9.4 H Lymph # (Auto) 1.2 L [place] # (Auto) 0.5 Eos # (Auto) 0.1 Baso # (Auto) 0.1 Absolute Nucleated RBC 0.00 Nucleated RBC % 0.0 Sodium 140 Potassium 4.1 Chloride 102 Carbon Dioxide 29 Anion Gap 9.0 BUN 21 H Creatinine 1.1 Estimated GFR (MDRD) 48 L Glucose 115 H Calcium 10.1 Total Bilirubin 0.7 AST 17 ALT 11 Alkaline Phosphatase 61 Total Protein 7.2 Albumin 4.2 Globulin 3.0 Albumin/Globulin Ratio 1.4 Lipase 11 Urine Color YELLOW Urine Clarity CLEAR Urine pH 6.0 Ur Specific [place] 1.015 Urine Protein NEGATIVE Urine Glucose (UA) NEGATIVE Urine Ketones NEGATIVE Urine Occult Blood NEGATIVE Urine Nitrite NEGATIVE Urine Bilirubin NEGATIVE Urine Urobilinogen 0.2 (NORMAL) Ur Leukocyte Esterase NEGATIVE Ur Microscopic Review NOT INDICATED Urine Culture Comments NOT INDICATED Stl C. diff Tox B Gene 05/01/24 17:49 WBC RBC Hgb Hct MCV MCH MCHC RDW Plt Count MPV Neut # (Auto) Lymph # (Auto) [place] # (Auto) Eos # (Auto) Baso # (Auto) Absolute Nucleated RBC Nucleated RBC % Sodium Potassium Chloride Carbon Dioxide Anion Gap BUN Creatinine Estimated GFR (MDRD) Glucose Calcium Total Bilirubin AST ALT Alkaline Phosphatase Total Protein Albumin Globulin Albumin/Globulin Ratio Lipase Urine Color Urine Clarity Urine pH Ur Specific [place] Urine Protein Urine Glucose (UA) Urine Ketones Urine Occult Blood Urine Nitrite Urine Bilirubin Urine Urobilinogen Ur Leukocyte Esterase Ur Microscopic Review Urine Culture Comments Stl C. diff Tox B Gene POSITIVE A* - Rads (name of study) abd/pelvic CT Relevant Findings:: Prelim report reviewed (local colitis in sigmoid area similar to prior CT. No abscess nor perforation. ), EMP independent interpretation of test PD Medical Decision Making - ED course Complexity details: reviewed results (she has had diverticulitis with 2 courses of abx with somewhat different pain and now diarrhea. So reshot CT to see if different process. TO get stool for c diff screen. ), re-evaluated patient (feeling better ), considered differential, d/w patient Reviewed Lab Results: CT showing similar focal area of sigmoid colitis associated near diverticulum. No abscess nor perforation. Appears more like persistent diverticulitis than generl colitis such as c diff. So can treat for that again. Prior two courses were similar though, Levaquin/Flagyl then Cipro/flagyl without complete resolution, so can treat differently with Augmentin. Add probiotics too. Departure - Departure Disposition: 01 Home, Self Care Clinical Impression: Lower abdominal pain, Diarrhea, Diverticulitis Condition: Stable Record reviewed to determine appropriate education?: Yes Follow-Up: Paula Negrete PA-C [Primary Care Provider] - Prescriptions: Saccharomyces Boulardii [Florastor] 500 mg PO TID 7 Days #20 cap Vancomycin HCl [Vancocin HCl] 250 mg PO QID #40 cap Comments: Your CT scan showed a similar appearance to the prior CT scan which is localized: Inflammation around the sigmoid diverticula. No signs of abscess or perforation. It does however look like it did not not clear fully and is recurring. The 2 prior antibiotic regimens were similar with a combination of a quinolone (levofloxacin and then ciprofloxacin) combined with metronidazole. This time I would switch to a different category of antibiotic for it. Another commonly recommended 1 for diverticulitis is Augmentin twice daily. I would also suggest adding some probiotics to decrease the side effects of the antibiotics on the normal ranjith of the intestine. Use these 3 times a day. For the discomfort of it, I would suggest Tylenol 500 to 650 mg 4 times a day regularly for the next several days to week. Follow-up with your primary care later this week to update on how you are doing. I would anticipate improvement over the next 2 to 3 days and resolution over probably 3 to 5 days. Stay well-hydrated. I sent your prescriptions to your preferred pharmacy. Return to the ER if worsening. Forms: PCP List Discharge Date/Time: 05/01/24 18:14
[2024-05-01] MEDS: AMOX/CLAV 875 MG/125 MG TABLET PO STA (17:55)
[2024-05-01] MEDS: ACETAMINOPHEN 500 MG TABLET PO STA (17:55)
[2024-05-01] MEDS: SACCHAROMYCES BOULARDII 250 MG CAPSULE PO STA (17:56)
[2024-05-01 18:13] VITALS: BP 139/71; O2SAT 100
--- NOTE | 2024-05-01 19:49 | ED Physician Documentation ---
ED Addendum - Addendum Addendum: 05/01/24 19:48 She came up positive for c diff. Called pt and d/w her. She had not started augmentin, so i cancelled that and rx vancomycin 250mg PO QID #40. We discussed need for follow-up and standard return precautions.
== END 2024-05-01 18:14 | disposition home or self-care (01) ==
LOC: ED 14:33
DX: K57.32 Diverticulitis of large intestine without perforation or abscess without bleeding (principal); A04.72 Enterocolitis due to Clostridium difficile, not specified as recurrent
CPT/HCPCS: 36415; 74177; 80053; 81003; 83690; 85025; 87493; 96361; 96374; 99284; A9270; Q9967; 81001; 87086

== ENCOUNTER 2024-05-13 09:45 | Outpatient (CLI) | payer MEDICARE, OTHER | END 2024-05-13 23:59 | disposition EMS.NT | LOC: EMS 09:45 | DX: K92.1 Melena (principal); Z79.01 Long term (current) use of anticoagulants ==

== ENCOUNTER 2024-05-24 15:18 | Emergency (ER) | payer MEDICARE, OTHER ==
--- NOTE | 2024-05-24 17:23 | XRAY Report ---
PROCEDURE: Hip w/Pelvis 2-3V RT INDICATIONS: RIGHT HIP PAIN TECHNIQUE: 3 views of the hip were acquired. COMPARISON: CT abdomen pelvis 05/01/2024, right hip 11/02/2023 FINDINGS: Bones: No acute fractures or dislocations. No suspicious bony lesions. Right hip arthroplasty wit h cerclage wires. Hardware is intact without evidence of hardware fracture or periprosthetic lucency to suggest loosening. Left hip arthritic change. Soft tissues: No suspicious soft tissue calcifications or masses. IMPRESSION: Right hip arthroplasty with hardware appearing intact. Reviewed by: Joy Toscano MD on 05/24/2024 5:21 PM PDT Approved by: Joy Toscano MD on 05/24/2024 5:21 PM PDT Station ID: [id number]
--- NOTE | 2024-05-24 17:32 | ED Physician Documentation ---
PD HPI LOWER EXT INJURY - Stated complaint Stated Complaint: RT SIDE HIP PX - Chief complaint Chief Complaint: Ext Problem - Additional information Additional information: 83 yo Female presents emergency department for spontaneous right hip bruising. Patient had right hip replaced in November unfortunately it failed and then she had replaced again in October. She has had no complications since then she had her surgery done with Dr. Stanton at [facility]. She is anticoagulated on Eliquis for A-fib no history of DVTs or PEs. No recent illnesses. Patient says that she noticed about a week ago with spontaneous right hip hematoma no falls no injuries she is unsure what happened to cause this there is tenderness when she sits on that portion of her hip. Her orthopedic surgeon told her to present to the nearest emergency department to have imaging done and have imaging sent to her after it was complete. She is able to ambulate without any difficulty no weakness. 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: Ovarian cysts : Renal insuffiency, Nocturia, Frequency HEENT: Chronic vision loss, Chronic sinusitis Psych: None Musculoskeletal: None Derm: None - Past Surgical History Past Surgical History: Yes General: Cholecystectomy Ortho: Hip replacement, Other /DIVISION SALES MANAGER: Tubal ligation Cardiovascular: Pacemaker, AICD HEENT: Cataracts Derm: Skin grafts - Present Medications Home Medications: Ambulatory Orders Medication Instructions Recorded Confirmed Furosemide [Lasix] 20 - 40 mg PO DAILY PRN MDD 40MG 02/07/15 03/23/24 Metoprolol Succinate 50 mg PO BID 06/25/17 03/23/24 Levothyroxine Sodium 200 mcg PO DAILY 09/09/18 03/23/24 Levothyroxine Sodium 400 mcg PO MICHELE@0600 09/09/18 03/23/24 Echinacea Purpurea Aerial Ext 65 mg PO BID 10/01/23 03/23/24 [Echinacea] Fluticasone [Flonase] 2 sprays CHERYL DAILY 10/01/23 03/23/24 Multivitamin 1 each PO DAILY 10/01/23 03/23/24 Rosuvastatin Calcium [Crestor] 10 mg PO DAILY PM 10/01/23 03/23/24 Spironolactone [Aldactone] 25 mg PO Q48H 10/01/23 11/02/23 Acetaminophen [Tylenol] 650 mg PO Q8H PRN 03/23/24 03/23/24 Ferrous Sulfate [Slow Fe] 65 mg PO DAILY 03/23/24 03/23/24 Rivaroxaban [Xarelto] 15 mg PO DAILY PM 03/23/24 03/23/24 levoFLOXacin [Levofloxacin] 750 mg PO DAILY #10 tablet 03/23/24 metroNIDAZOLE [Flagyl] 500 mg PO TID #30 tab 03/23/24 Ciprofloxacin HCl [Cipro] 500 mg PO BID #20 tablet 04/11/24 metroNIDAZOLE [Flagyl] 500 mg PO TID 10 Days #30 tablet 04/11/24 Saccharomyces Boulardii [Florastor] 500 mg PO TID 7 Days #20 cap 05/01/24 Vancomycin HCl [Vancocin HCl] 250 mg PO QID #40 cap 05/01/24 - Allergies Allergies/Adverse Reactions: Allergies Allergy/AdvReac Type Severity Reaction Status Date / Time No Known Drug Allergies Allergy Verified 05/24/24 15:42 - Social History Does the pt smoke?: No Smoking Status: Never smoker Does the pt drink ETOH?: No Does the pt have substance abuse?: No - Immunizations Immunizations are current?: Yes - POLST Patient has POLST: No POLST Status: Full Code PD ED PE NORMAL - Vitals Vital signs reviewed: Yes - General General: Alert and oriented X 3, No acute distress, Well developed/nourished - Derm Derm: Other (right hip echymosis) - Extremities Extremities: No deformity, No edema, No calf tenderness / cord, Other (t enderness with palpation to right lateral hip, no crepitus, full ROM, no weakness, CMS intact, strong dorsalis pedis pulse.) Results - Vitals Vitals: Vital Signs - 24 hr 05/24/24 05/24/24 15:37 18:34 Temperature 36.3 C L Heart Rate 68 84 Respiratory 19 18 Rate Blood Pressure 127/71 132/84 H O2 Saturation 97 100 Oxygen O2 Source Room air - Labs Labs: Laboratory Tests 05/24/24 17:40 WBC 7.1 RBC 4.36 Hgb 12.5 Hct 40.5 MCV 92.9 MCH 28.7 MCHC 30.9 L RDW 17.4 H Plt Count 245 MPV 12.0 H Neut # (Auto) 5.0 Lymph # (Auto) 1.4 L [place] # (Auto) 0.4 Eos # (Auto) 0.2 Baso # (Auto) 0.1 Absolute Nucleated RBC 0.00 Nucleated RBC % 0.0 - Rads (name of study) right hip X-ray/pelvis Relevant Findings:: Final report received, EMP independent interpretation of test, Other (Right hip arthroplasty hardware appears to be intact, no lucency noted.) PD Medical Decision Making - ED course ED course: 83-year-old female presents emergency department for right hip ecchymosis. She appears to have a large hematoma that appears to be well-healing she has full range of motion no weakness no crepitus no popping she has no known recent falls or traumas x-rays are complete per recommendation of [facility]. X-rays do not show any hardware malformation appears to be intact no lucency. Unclear what is causing the spontaneous hematoma patient is told to follow-up with [facility] outpatient there is no further emergent workup indicated at this time all questions answered patient safe for discharge return precautions given. Departure - Departure Disposition: 01 Home, Self Care Clinical Impression: Hip hematoma, right Instructions: ED Hematoma Comments: Thank you for trusting us with your care. Completed x-rays of your right hip and we are not seeing any abnormalities to your right hip including the hardware. We also completed labs we are not seeing any anemia I am not entirely confident what is causing this spontaneous hematoma but I would recommend following up with your orthopedic surgeon for further evaluation. We have requested the images get sent to [facility] but as we discussed this often times for some reason does not always work out because her system do not communicate with each other. To confirm this you can [facility] medical records and asked that your information get sent to Dr. Stanton. 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 COMPARISON: CT abdomen pelvis 05/01/2024, right hip 11/02/2023 FINDINGS: Bones: No acute fractures or dislocations. No suspicious bony lesions. Right hip arthroplasty with cerclage wires. Hardware is intact without evidence of hardware fracture or periprosthetic l ucency to suggest loosening. Left hip arthritic change. Soft tissues: No suspicious soft tissue calcifications or masses. IMPRESSION: Right hip arthroplasty with hardware appearing intact. Reviewed by: Joy Toscano MD on 05/24/2024 5:21 PM PDT Forms: PCP List Discharge Date/Time: 05/24/24 18:04
[2024-05-24 17:44] LABS: BASOPHILS # (AUTO) 0.1 10^3/uL (0.0-0.1); BASOPHILS % (AUTO) 1.4 %; EOSINOPHILS # (AUTO) 0.2 10^3/uL (0.0-0.7); EOSINOPHILS % (AUTO) 2.8 %; HCT - HEMATOCRIT 40.5 % (37.0-47.0); HGB - HEMOGLOBIN 12.5 g/dL (12.0-16.0); LYMPHOCYTES # (AUTO) 1.4 10^3/uL (1.5-3.5); MEAN CORPUSCULAR HEMOGLOBIN 28.7 pg (27.0-31.0); MEAN CORPUSCULAR HGB CONC 30.9 g/dL (32.0-36.0); MEAN CORPUSCULAR VOLUME 92.9 fL (81.0-99.0); MONOCYTES # (AUTO) 0.4 10^3/uL (0.0-1.0); NEUTROPHILS % (AUTO) 70.7 %; PLT - PLATELET COUNT 245 10^3/uL (130-450); RED BLOOD COUNT 4.36 10^6/uL (4.20-5.40); RED CELL DISTRIBUTION WIDTH 17.4 % (12.0-15.0); WHITE BLOOD COUNT 7.1 x10^3/uL (4.8-10.8)
[2024-05-24 18:39] VITALS: BP 132/84; O2SAT 100
== END 2024-05-24 18:04 | disposition home or self-care (01) ==
LOC: ED 15:18
DX: S70.01XA Contusion of right hip, initial encounter (principal); X58.XXXA Exposure to other specified factors, initial encounter; I11.0 Hypertensive heart disease with heart failure; I50.9 Heart failure, unspecified; I48.91 Unspecified atrial fibrillation; I48.92 Unspecified atrial flutter; Z79.01 Long term (current) use of anticoagulants; E11.9 Type 2 diabetes mellitus without complications; E03.9 Hypothyroidism, unspecified; N28.9 Disorder of kidney and ureter, unspecified; Z96.641 Presence of right artificial hip joint; Z95.810 Presence of automatic (implantable) cardiac defibrillator; Z79.899 Other long term (current) drug therapy
CPT/HCPCS: 36415; 85025; 99283; 99284

== ENCOUNTER 2024-05-29 12:40 | Outpatient (CLI) | payer MEDICARE, OTHER ==
--- NOTE | 2024-05-29 18:07 | Ultrasound Report ---
PROCEDURE: Pelvic w/Transvaginal INDICATIONS: POSTMENOPAUSAL BLEEDING TECHNIQUE: Real-time scanning was performed of the pelvic organs, with image documentation. Additional endovagi nal scanning was necessary due to incomplete visualization of the adnexal and endometrial structures by transabdominal scanning. COMPARISON: CT abdomen and pelvis 05/01/2024 FINDINGS: Uterus: Uterus is anteverted and normal in size at 6.6 x 3.2 x 3.5 cm. The myometrium is homogeneou s. The endometrium measures 3 mm in combined thickness. Foci of uterine heterogeneous echogenicity is present measuring 10 x 11 x 11 mm compared to 13 x 15 x 13 mm and 11 x 10 x 9 mm compared to 13 x 11 x 11 mm. These are consistent with fibroids. Focal echogenic focus is present within fluid overlyi ng the cervix. Ovaries: Not visualized. Other: No pathologic free abdominal or pelvic fluid. IMPRESSION: Endometrial complex measures 3 mm within normal limits for post menopausal bleeding. However, echogen ic focus appearing to be within fluid at the level of the cervix is identified measuring 8 mm. This c ould represent area calcification. However, underlying cervical mass cannot be excluded. Further eval uation with direct visualization and sampling is recommended to exclude malignancy. Reviewed by: Joy Toscano MD on 05/29/2024 6:05 PM PDT Approved by: Joy Toscano MD on 05/29/2024 6:05 PM PDT Station ID: [id number]
== END 2024-05-29 12:41 | disposition home or self-care (01) ==
LOC: DI 12:40
PROVIDERS: ATTEND Physician Assistant Medical
DX: N95.0 Postmenopausal bleeding (principal); R93.89 Abnormal findings on diagnostic imaging of other specified body structures

== ENCOUNTER 2024-07-20 08:00 | Outpatient (CLI) | payer MEDICARE, OTHER ==
[2024-07-20 17:32] LABS: BILIRUBIN,URINE NEGATIVE (NEGATIVE); GLUCOSE, URINE (UA) NEGATIVE (NEGATIVE); KETONES,URINE (UA) NEGATIVE (NEGATIVE); LEUKOCYTE ESTERASE, URINE SMALL (NEGATIVE); NITRITE,URINE NEGATIVE (NEGATIVE); OCCULT BLOOD,URINE NEGATIVE (NEGATIVE); PH,URINE 6.5 PH (5.0-7.5); PROTEIN,URINE NEGATIVE (NEGATIVE); UROBILINOGEN,URINE 0.2 (NORMAL) E.U./dL (NORMAL)
[2024-07-20 18:13] LABS: BACTERIA,URINE Rare /HPF (None Seen); CLARITY,URINE CLEAR (CLEAR); RBC,URINE 0-5 /HPF (0-5); SQUAMOUS EPITHELIAL CELL,UR FEW Squamous (<= Few)
== END 2024-07-20 23:59 | disposition home or self-care (01) ==
LOC: LAB.WC 08:00
PROVIDERS: ATTEND Nurse Practitioner
DX: N95.0 Postmenopausal bleeding (principal); R31.9 Hematuria, unspecified
CPT/HCPCS: 81001; 87086